=== PATIENT | female | born 1965 | race African-American/Black ===

== ENCOUNTER 2016-11-24 11:09 | Observation (INO) ==
[2016-11-24] MEDS ORDERED: METOPROLOL TARTRATE 5 MG/5 ML VIAL IV STA (11:45)
[2016-11-24] MEDS ORDERED: ASPIRIN 325 MG TABLET PO STA (11:45)
[2016-11-24] MEDS ORDERED: ENOXAPARIN 100 MG/ML SYRINGE SUBCUT STA (11:45)
[2016-11-24] MEDS ORDERED: ALUM/MAG/SIMETH/LIDO VISC 1:1 30 ML BOTTLE PO STA (11:45)
[2016-11-24] MEDS ORDERED: ONDANSETRON 4 MG/2 ML VIAL IV STA (11:45)
[2016-11-24] MEDS ORDERED: NITROGLYCERIN 2% OINT 1 INCH/GM PACK TOP STA (11:45)
--- NOTE | 2016-11-24 11:49 | EKG Report ---
Stationary ECG Study [facility] Test Date: 11/24/2016 11:26:15 AM Pat Name: SHAHZAD HIDALGO Department: Room: Gender: F [employer]: : 1965 Requested by: Brennen Ross Order Number: [id number] Reading MD: VITO KINNEY Intervals [place] Rate: 82 P: 50 NE: 190 QRS: -42 QRSD: 110 T: 45 QT: 381 QTc: 419 Interpretive Statements SINUS RHYTHM MARKED LEFT AXIS DEVIATION PATTERN CONSISTENT WITH PULMONARY DISEASE POOR R-WAVE PROGRESSION MINIMAL VOLTAGE CRITERIA FOR LVH, CONSIDER NORMAL VARIANT POOR QUALITY BASELINE Electronically Signed On 11-25-16 18:51:14 CDT by VITO KINNEY [email or web address]
--- NOTE | 2016-11-24 11:56 | Emergency Department Note ---
Crystal Salazar Gwan, am scribing for, and in the presence of, Brennen Saucedo MD 11:53 . Sheryl Salazar James D, MD, personally performed the services described in this documentation, ascribed by Juanita Rojas in my presence, and it is both accurate and complete . Arrival - Arrival Chief Complaint: Chest Pain Stated Complaint: FALL ED Nursing Triage Note: Brought in per EMS from home with c/o mid-sternal chest pain onset 2 days. +shortness of breath. +dizziness. +nausea/vomiting. + headache. +decreased appetite. Also c/o left hand pain and numbness x 2 days. Moving bilateral hands without difficulty. Mode of Arrival: Stretcher Limitations: No Limitations Source: Patient, Old Records Reviewed, RN Notes Reviewed Time Seen by Provider: 11/24/16 11:12 - History of Present Illness HPI Narrative: Pt is a 51 y/o female who presents to the ED via EMS for further evaluation of intermittent mid-sternal chest pain and SOB with an onset 2 days. Her associated sxs hve been N/V, dizziness, NAQVI and decreased appetite. She describes her pain as someone "sitting on her chest" and that her SOB worsens with deep breathe. She confirmed that she is being followed by Dr. Valdez and that she has been compliant with all prescribed medications. She denies any SHx of smoking cigarettes or any hx of blood clots. Pt has a PMHx of CHF, HTN, IDDM , NIDDM, obstructive sleep apnea, COPD and asthma. No other problems/complaints rpeorted in ED. Onset (ago): day(s) Consistency: intermittent Severity: moderate Date of Last Menstrual Period: hyst Allergies/Adverse Reactions: Allergies Allergy/AdvReac Type Severity Reaction Status Date / Time metoclopramide [From Reglan] Allergy Unknown/Unable Verified 11/24/16 11:18 to obtain butorphanol [From Stadol] AdvReac Intermediate Confusion Verified 11/24/16 11:18 ondansetron AdvReac Intermediate Confusion Verified 11/24/16 11:18 [From Zofran (as hydrochloride)] droperidol AdvReac Hallucinati Verified 11/24/16 11:18 ng morphine AdvReac Confusion Verified 11/24/16 11:18 Home Medications: Home Medications Medication Instructions Recorded Confirmed Type metFORMIN [Glucophage] 500 mg PO BID 04/16/16 11/24/16 History Carvedilol [Coreg] 25 mg PO BID tablet 04/21/16 11/24/16 Rx Buprenorphine HCl/Naloxone HCl 1 each SL BID 06/08/16 11/24/16 History [Suboxone 8 mg-2 mg Sl Film] Budesonide/Formoterol 160-4.5 2 puff INH BID 07/04/16 11/24/16 History [Symbicort 160-4.5] Sertraline [Zoloft] 100 mg PO BID 07/04/16 11/24/16 History Furosemide Tab [Lasix Tab] 80 mg PO TID #90 tablet 09/12/16 11/24/16 Rx Albuterol Inhaler [Proventil 2 puff INH Q4H PRN 11/24/16 11/24/16 History Inhaler] Lisinopril [Prinivil] 20 mg PO QPM 11/24/16 11/24/16 History Pantoprazole Tab [Protonix Tab] 40 mg PO QAM 11/24/16 11/24/16 History Theophylline ER Cap (24 Hr) 400 mg PO QAM 11/24/16 11/24/16 History [Fabiano-24] Review of System - Review of System 12 point system: reviewed and no additional remarkable complaints except as stated - Review of System Constitutional: Present: as per HPI, diaphoresis, other (dizziness). Absent: fever Respiratory: Present: as per HPI, cough Cardiovascular: Present: as per HPI, chest pain Gastrointestinal: Present: as per HPI, nausea, vomiting. Absent: abdominal pain Genitourinary female: Absent: dysuria Musculoskeletal: Absent: arm pain, back pain, leg pain, neck pain Skin: Absent: rash Medical,Surgical,& Family Hx - Medical History Cardio: History of: CHF, Hypertension No history of: [place], Pacemaker Psychological: History of: Depression Neurology: History of: Migraine Endocrine: History of: Diabetes Mellitus (IDDM), Diabetes Mellitus (NIDDM), Dyslipidemia Respiratory: History of: Asthma, COPD, Obstructive Sleep Apnea, Respiratory Problems Gastrointestinal: History of: GERD, GI Problems - Surgical History Cardiac Surgeries: Sugical HX of: Cardiac Catheterization Abdominal Surgeries: Surgical HX of: Cholecystectomy, Colonoscopy, EGD Reproductive Surgeries: Surgical HX of;: Section, Hysterectomy Orthopedic Surgeries: Surgical HX of;: Total Knee Replacement - Family History Family History: Reports;: Family Cancer, Family Diabetes, Family Hypertension, Family Stroke - Social History Smoking Status: Unknown if ever smoked Frequency of Alcohol Use: None Type of Drug Use: None Exam Physical Examination: GENERAL: This is a morbidly obese black female in no apparent distress. VITAL SIGNS: HEENT: Head is normocephalic and atraumatic. Pupils are equally round and reactive to light. Extraocular movement are intact. Oropharynx is benign with moist mucous membranes. NECK: Neck is soft and supple without tenderness. There are no masses. There is no lymphadenopathy. LUNGS: Lungs are clear to auscultation bilaterally. Chest rises symmetrically. Patient has anterior chest wall tenderness. CV: Heart is regular rate and rhythm without murmurs, rubs, or gallops. ABDOMEN: Abdomen is soft, non-tender to palpation. There are no abnormal masses palpated. There is no organomegaly. Bowel sounds are present and active. SKIN: Skin is warm and dry. No rash. EXTREMITIES: Patient has full range of motion without tenderness. There is no pedal edema. NEUROLOGIC: Awake, alert, and oriented x4. Cranial nerves II through XII are grossly intact. There are no motorsensory deficits. PSYCHIATRIC: Normal affect. Normal mood. Vital Signs: Vital Signs Temperature 96.8 F L 11/24/16 11:09 Pulse Rate 88 11/24/16 11:09 Respiratory Rate 20 11/24/16 11:09 Blood Pressure 140/102 11/24/16 11:09 O2 Sat by Pulse Oximetry 96 11/24/16 11:09 Course - Consultations Consultation #1: Discussed with hospitalist. Patient will be admitted to their service. Time: 13:24 Results - Labs CBC & BMP: 11/24/16 11:40 11/24/16 11:40 Lab Results: I have reviewed the patients labs Labs: Laboratory Tests 11/24/16 11:40 Troponin I < 0.015 Laboratory Tests 11/24/16 11/24/16 11/24/16 11:40 11:40 11:40 WBC 7.2 RBC 4.84 Hgb 9.2 L Hct 34.0 L MCV 70.2 L MCH 19 L MCHC 27.1 L RDW 19.2 H Troponin I < 0.015 B-Natriuretic Peptide 68 - EKG EKG results: interpreted by NEO - Diagnostic Findings Procedure: Chest x-ray: image reviewed by me (Cardiomegaly, no pleural effusions , no infiltrate) Disposition Clinical Impression: Chest pain, Essential hypertension, Diabetes mellitus, Morbid obesity Case discussed with: patient Disposition: Still a Patient Condition: Stable Time of Disposition: 13:24
[2016-11-24 12:01] LABS: PT Patient Result 10.2 SECS; Partial Thromboplastin Time 23.3 SECS (0-40)
[2016-11-24 12:04] LABS: Basophils % 0.3 % (0.0-0.8); Eosinophils % 0.1 % (0.00-10.9); Hemoglobin 9.2 GM/DL (12.0-16.0); Immature Granulocytes % 0.4 %; Immature Granulocytes Absolute 0.03 #; Lymphocytes # 2.3 10*3/uL (1.4-4.0); Lymphocytes % 32.5 % (21.3-54.2); Mean Corpuscular HGB Conc 27.1 GM/DL (32-36); Mean Corpuscular Hemoglobin 19 PG (27-34); Mean Corpuscular Volume 70.2 FL (87-102); Monocytes # 0.3 10*3/uL (0.11-0.8); Monocytes % 4.4 % (1.7-12.7); Neutrophils # 4.5 10*3/uL (1.4-7.4); Neutrophils % 62.3 % (38.7-73.9); Platelet Count 223 T/CUMM (130-400); Red Blood Count 4.84 MC/CUMM (3.8-5.5); Red Cell Distribution Width 19.2 % (9.3-17.3); White Blood Count 7.2 T/CUMM (4-12)
[2016-11-24] MEDS ORDERED: NITROGLYCERIN 2% OINT 1 INCH/GM PACK TOP ONE (12:06)
[2016-11-24] MEDS ORDERED: ONDANSETRON 4 MG/2 ML VIAL ONE (12:06)
[2016-11-24] MEDS ORDERED: ENOXAPARIN 100 MG/ML SYRINGE SUBCUT ONE (12:06)
[2016-11-24] MEDS ORDERED: ENOXAPARIN 40 MG/0.4 ML SYRINGE ONE (12:06)
[2016-11-24] MEDS ORDERED: METOPROLOL TARTRATE 5 MG/5 ML VIAL IV ONE (12:07)
[2016-11-24] MEDS ORDERED: ASPIRIN 325 MG TABLET ONE (12:07)
[2016-11-24] MEDS ORDERED: ALUM/MAG/SIMETH/LIDO VISC 1:1 30 ML BOTTLE PO ONE (12:07)
[2016-11-24 12:09] LABS: Alanine Aminotransferase < 9 U/L (13-56); Albumin 3.4 G/DL (3.4-5.0); Alkaline Phosphatase 104 U/L (45-117); Aspartate Amino Transferase 10 U/L (0-37); Blood Urea Nitrogen 5 MG/DL (7-18); Calcium 8.2 MG/DL (8.5-10.1); Glucose 123 MG/DL (74-106); Osmolality,Calculated 278.3 MOS/KG (273-304); Potassium 3.7 MMOL/L (3.5-5.1); Sodium 141 MMOL/L (136-145)
[2016-11-24] MEDS ORDERED: PROMETHAZINE 25 MG/1 ML VIAL ONE (12:20)
[2016-11-24 12:24] LABS: Hypochromasia 2+; Microcytosis 1+; Ovalocytes Slight; Target Cells Slight
[2016-11-24 12:25] LABS: Anisocytosis 1+; Platelet Estimate Normal; Poikilocytosis 1+; Stomatocytes Slight; Tear Drop Cells Slight
--- NOTE | 2016-11-24 12:35 | XRay Report ---
Portable chest. Indication: Chest pain. Comparison: September 12, 2016. The heart is enlarged. The pulmonary vasculature is normal. The lung avila are clear. The osseous structures are unremarkable. Impression: Stable cardiomegaly. No acute abnormality. PROCEDURE INTERPRETED AT [facility] DEPARTMENT OF RADIOLOGY Final Report Signed by: Dr. Sandra Marie
[2016-11-24] MEDS ORDERED: ZALEPLON 5 MG CAPSULE PO PRN (14:30)
[2016-11-24] MEDS ORDERED: BISACODYL 5 MG TABLET PO PRN (14:30)
[2016-11-24] MEDS ORDERED: PANTOPRAZOLE 40 MG TABLET PO SCH (14:30)
[2016-11-24] MEDS ORDERED: ALBUTEROL 2.5 MG/3 ML NEB RESP TX PRN (14:34)
[2016-11-24] MEDS ORDERED: ALUMINUM/MAGNES/SIMETH MAX STR 30 ML UDCUP PO PRN (14:36)
[2016-11-24] MEDS ORDERED: GLUCAGON 1 MG VIAL IM PRN (14:38)
[2016-11-24] MEDS ORDERED: DEXTROSE 50% 25 GM/50 ML VIAL IV PRN (14:38)
--- NOTE | 2016-11-24 14:48 | Hospitalist History & Physical ---
Assessment and Plan (1) Obesity hypoventilation syndrome Status: Chronic Assessment and plan: The patient is on active treatment for sleep apnea. Arterial blood gases confirmed CO2 retention with blood work demonstrating compensatory increase in CO2 content. Echocardiogram shows dilated right-sided structures however with measured right ventricular systolic pressure is within normal limits. Her clinical appearance however is strongly suggestive of cor pulmonale. Current Visit: No (2) Chronic pain Status: Chronic Assessment and plan: Patient is chronically maintained on opiate derivatives. Current Visit: No Qualifiers: Chronic pain type: chronic pain syndrome Qualified Code(s): G89.4 - Chronic pain syndrome (3) Abdominal pain Status: Acute Assessment and plan: Pain location is predominantly epigastric this associated with nausea vomiting dark stools. Her anemia is persistent though less severe than in August. She persists with microcytosis. Her most recent upper endoscopy demonstrated H. pylori negative gastritis esophagitis without ulceration. Current Visit: No Qualifiers: Abdominal location: epigastric Qualified Code(s): R10.13 - Epigastric pain History of Present Illness History of present illness: Ms. Addison is a 51 year old female who presents with complaints of 3 days of nausea with emesis and loose bowel movements. She has epigastric discomfort which is not relieved by emesis. Her abdominal discomfort last night lasted several hours at a time and is inhibited her from eating more than minimal amounts of food. She also describes over this interval frontal headache and incidental paresthesia in the left ulnar distribution without history of trauma. Patient presented with anemia with low MCV abdominal pain in March 2016 at that time she underwent upper endoscopy. At that time she had a dilatation of a stricture esophagitis and gastritis were identified. The available biopsy specimen showed inflammatory changes but no evidence of H. pylori. She has had a remote cholecystectomy performed. She had been readmitted here in May 2016 at which time her echocardiogram once again showed normal right ventricular systolic pressures with excellent LV systolic function right-sided structures were dilated. There is a note indicating a preliminary form for cardiac catheterization but this does not appear to have been completed. The patient tells me that she had a cardiac catheterization done on approximately a year before that which time there was no coronary disease identified. She most recently was in the hospital against August of this year she received diuresis for presumed cor pulmonale. Her hemoglobin was 7.7 at that time with a decrease in MCV. Patient does describe intermittent tarry stools and has some bright red blood per rectum with this recent diarrheal episode. She denies any transfusions. The patient has been treated for 2-3 years for obstructive sleep apnea on previous visit she has demonstrated increased CO2 content. Arterial blood gases from last year demonstrated persistent CO2 retention varying with the amount of oxygen exposure with likewise variable respiratory acidosis. She considers her respiratory status to be roughly stable subjectively. Home Medications Medication Instructions Recorded Confirmed Type metFORMIN [Glucophage] 500 mg PO BID 04/16/16 11/24/16 History Carvedilol [Coreg] 25 mg PO BID tablet 04/21/16 11/24/16 Rx Buprenorphine HCl/Naloxone HCl 1 each SL BID 06/08/16 11/24/16 History [Suboxone 8 mg-2 mg Sl Film] Budesonide/Formoterol 160-4.5 2 puff INH BID 07/04/16 11/24/16 History [Symbicort 160-4.5] Sertraline [Zoloft] 100 mg PO BID 07/04/16 11/24/16 History Furosemide Tab [Lasix Tab] 80 mg PO TID #90 tablet 09/12/16 11/24/16 Rx Albuterol Inhaler [Proventil 2 puff INH Q4H PRN 11/24/16 11/24/16 History Inhaler] Lisinopril [Prinivil] 20 mg PO QPM 11/24/16 11/24/16 History Pantoprazole Tab [Protonix Tab] 40 mg PO QAM 11/24/16 11/24/16 History Theophylline ER Cap (24 Hr) 400 mg PO QAM 11/24/16 11/24/16 History [Fabiano-24] Allergies Allergy/AdvReac Type Severity Reaction Status Date / Time metoclopramide [From Reglan] Allergy Unknown/Unable Verified 11/24/16 11:18 to obtain butorphanol [From Stadol] AdvReac Intermediate Confusion Verified 11/24/16 11:18 ondansetron AdvReac Intermediate Confusion Verified 11/24/16 11:18 [From Zofran (as hydrochloride)] droperidol AdvReac Hallucinati Verified 11/24/16 11:18 ng morphine AdvReac Confusion Verified 11/24/16 11:18 Medical,Surgical,& Family Hx - Medical History Cardio: History of: Hypertension (15 years duration) Psychological: History of: Depression Neurology: History of: Migraine Endocrine: History of: Diabetes Mellitus (NIDDM) (Medicine list includes only metformin), Dyslipidemia Respiratory: History of: COPD (Patient has never smoked and history of bronchospasm is lacking.), Obstructive Sleep Apnea (On CPAP fourth 2-3 years), Respiratory Problems (Arterial blood gases August - May 2016 showed consistent CO2 retenti) Gastrointestinal: History of: GERD (Endoscopy showing diffuse disc gastroesophagitis with esophageal stricture ) - Surgical History Cardiac Surgeries: Sugical HX of: Cardiac Catheterization (Cannot locate reports she believes this was normal approximately 1 year) Abdominal Surgeries: Surgical HX of: Cholecystectomy, EGD (Associated esophageal dilatation) Reproductive Surgeries: Surgical HX of;: Section, Hysterectomy Orthopedic Surgeries: Surgical HX of;: Total Knee Replacement (Right knee) - Family History Family History: Reports;: Family Cancer, Family Diabetes, Family Hypertension, Family Stroke - Social History Smoking Status: Never smoker Frequency of Alcohol Use: None Type of Drug Use: None - Constitutional Constitutional: Present: chills, headache(s), malaise. Absent: fever(s) - EENT Nose, mouth and throat: Present: headache(s) - Cardiovascular Cardiovascular: Present: dyspnea on exertion. Absent: chest pain at rest, chest pain with activity, orthopnea, palpitations, PND - Respiratory Respiratory: Present: dyspnea on exertion. Absent: cough, hemoptysis - Gastrointestinal Gastrointestinal: Present: abdominal pain, diarrhea, melena, nausea, vomiting. Absent: bloating, dysphagia, hematemesis, hematochezia, jaundice - Neurological Neurological: Present: other (Left hand ulnar neuropathy). Absent: convulsions , syncope - Psychiatric Psychiatric: Present: depression Exam - Constitutional General appearance: morbidly obese - Eye Eye exam: Absent: scleral icterus - Neck Neck exam: Absent: lymphadenopathy, thyromegaly - Respiratory Respiratory exam: Present: clear to auscultation bilaterally. Absent: rales, rhonchi, wheezes - Cardiovascular Cardiovascular exam: Present: regular rate and rhythm - GI/Abdominal GI/Abdominal exam: Present: normal bowel sounds. Absent: ascites, distended, organomegaly, tenderness - Extremities Exam Extremities exam: Absent: edema - Neurological Exam Neurological exam: Present: alert, oriented X3 Results - Labs CBC & BMP: 11/24/16 11:40 11/24/16 11:40 Labs: MCV 70.2 Normal pro time and PTT Calcium 8.2 (unchanged from previous) albumin 3.4 - Impressions Sinus rhythm with baseline movement artifact left axis deviation with criteria for left anterior fascicular block - Diagnostic Findings Procedure: Chest x-ray: image reviewed by me (Overpenetrated no gross abnormality present) Quality Measures - VTE Contraindication to Pharmacological VTE Prophylaxis: Active Bleeding
[2016-11-24] MEDS ORDERED: PROMETHAZINE INJ 25 MG in SODIUM CHLORIDE 0.9% 50 ML IV STA (14:54)
[2016-11-24] MEDS ORDERED: PROMETHAZINE 25 MG/1 ML VIAL IM STA (14:58)
[2016-11-24 17:14] LABS: % Iron Saturation 12.5 % (18-50)
[2016-11-24] MEDS: LISINOPRIL 20 MG TABLET PO SCH (18:31)
[2016-11-24] MEDS ORDERED: NON-FORMULARY MEDICATION (Buprenorphine Hcl/Naloxone Hcl [Suboxone 8 Mg-2 Mg Sl Film] 1 EA SL SCH (21:00)
--- NOTE | 2016-11-24 21:00 | Gastrointestinal Consult Note ---
Assessment and Plan (1) Nausea, vomiting, and diarrhea Status: Acute Assessment and plan: Patient states that she has recently been fevers along with the nausea/vomiting/ diarrhea of her current episode. She does not have a elevated white blood cell count but may be experiencing a gastroenteritis causing her current illness. Given the fact that she has esophagitis and gastritis in the past on previous upper endoscopy done in March 2016 strongly suggest use of Protonix IV twice daily until we can get her nausea under control. She is asking for additional pain medications but I do not see how slowing down her GI tract will necessarily benefit the symptoms. I will go ahead and suppress her acidity with IV Protonix which she will not be able to throw up, twice daily. Current Visit: Yes (2) History of esophageal stricture Status: Acute Assessment and plan: The patient is not having dysphagia symptoms at this time. She was previously dilated to 54 [place] by single pass Verma dilator. She is not vomiting any coffee grounds. I suspect she has some atypical chest pain for the recurrence of vomiting over the last 3 days. This should improve with acid blockade. Imagine she may be able to go home tomorrow with Protonix twice daily if she is feeling better and is able to eat. Current Visit: Yes (3) Gastritis Status: Acute Assessment and plan: This was noted to be Helicobacter pylori negative on the previous upper endoscopy done by Dr. Cristobal back in March 2016. No further treatment is needed aside from better suppression of her gastric acidity. Would suggest trying to feed the patient tomorrow if she feels up to this and then switch her over to oral pantoprazole twice a day dosing. She may need a follow-up with Dr. Cristobal in order to discuss colonoscopy. Current Visit: Yes (4) Morbid obesity Status: Chronic Assessment and plan: This patient may be a candidate for gastric sleeve in the future with Dr. Castillo. Current Visit: No History of Present Illness Chief complaint: Nausea vomiting, diarrhea, fever/chills History of present illness: Ms. Addison is a 51 year old female who is a patient of Dr. Ankush Cristobal' who was seen last in March 2016 when she had nausea vomiting and melena at that time and was found to have a distal esophagitis with esophageal stricture that required dilation to 54 [place] and some mild gastritis. She is once again presenting with nausea and vomiting for the last 3 days along with epigastric pain. She states that she vomits approximately 3 times per day and last night developed some fevers and chills along with this and over the last 2 days has developed some diarrhea that she states has been quite dark. Her white blood cell count is only 7.2 and her hematocrit and hemoglobin are 34.0% and 9.2 g/ dL. she is complaining of abdominal pain but also states that she has pain in her head. She specifically requests Phenergan and states that she is allergic to Zofran, Reglan, Compazine, Stadol, and she would like something stronger than [place] to treat her pain. She states that her reflux is slightly worse. Biopsies from the patient's stomach did not show any Helicobacter pylori. Patient is already had her gallbladder removed some 17 years ago at an outside facility. She is morbidly obese and has obesity hypoventilation syndrome. She is concerned of her atypical chest pain and decreased appetite as well as mild shortness of breath. She is currently being ruled out. The patient has a history of chronic pain and follows with Dr. Valdez. Home Medications Medication Instructions Recorded Confirmed Type metFORMIN [Glucophage] 500 mg PO BID 04/16/16 11/24/16 History Carvedilol [Coreg] 25 mg PO BID tablet 04/21/16 11/24/16 Rx Buprenorphine HCl/Naloxone HCl 1 each SL BID 06/08/16 11/24/16 History [Suboxone 8 mg-2 mg Sl Film] Budesonide/Formoterol 160-4.5 2 puff INH BID 07/04/16 11/24/16 History [Symbicort 160-4.5] Sertraline [Zoloft] 100 mg PO BID 07/04/16 11/24/16 History Furosemide Tab [Lasix Tab] 80 mg PO TID #90 tablet 09/12/16 11/24/16 Rx Albuterol Inhaler [Proventil 2 puff INH Q4H PRN 11/24/16 11/24/16 History Inhaler] Lisinopril [Prinivil] 20 mg PO QPM 11/24/16 11/24/16 History Pantoprazole Tab [Protonix Tab] 40 mg PO QAM 11/24/16 11/24/16 History Theophylline ER Cap (24 Hr) 400 mg PO QAM 11/24/16 11/24/16 History [Fabiano-24] Allergies Allergy/AdvReac Type Severity Reaction Status Date / Time metoclopramide [From Reglan] Allergy Unknown/Unable Verified 11/24/16 11:18 to obtain butorphanol [From Stadol] AdvReac Intermediate Confusion Verified 11/24/16 11:18 ondansetron AdvReac Intermediate Confusion Verified 11/24/16 11:18 [From Zofran (as hydrochloride)] droperidol AdvReac Hallucinati Verified 11/24/16 11:18 ng morphine AdvReac Confusion Verified 11/24/16 11:18 Medical,Surgical,& Family Hx - Medical History Cardio: History of: CHF, Hypertension (15 years duration) No history of: [place], Pacemaker Psychological: History of: Depression Neurology: History of: Migraine Endocrine: History of: Diabetes Mellitus (IDDM), Diabetes Mellitus (NIDDM) ( Medicine list includes only metformin), Dyslipidemia Respiratory: History of: Asthma, COPD (Patient has never smoked and history of bronchospasm is lacking.), Obstructive Sleep Apnea (On CPAP fourth 2-3 years), Respiratory Problems (Arterial blood gases August - May 2016 showed consistent CO2 retenti) Gastrointestinal: History of: GERD (Endoscopy showing diffuse disc gastroesophagitis with esophageal stricture ), GI Problems - Surgical History Cardiac Surgeries: Sugical HX of: Cardiac Catheterization (Cannot locate reports she believes this was normal approximately 1 year) Abdominal Surgeries: Surgical HX of: Cholecystectomy, Colonoscopy, EGD ( Associated esophageal dilatation) Reproductive Surgeries: Surgical HX of;: Section, Hysterectomy Orthopedic Surgeries: Surgical HX of;: Total Knee Replacement (Right knee) - Family History Family History: Reports;: Family Cancer, Family Diabetes, Family Hypertension, Family Stroke - Social History Smoking Status: Never smoker Frequency of Alcohol Use: None Type of Drug Use: None Review of systems: Constitutional: Admits to fever, chills, nausea, and vomiting Eyes: Denies dry eyes, and scleral icterus HENT: The patient does have headaches Cardiovascular: She admits to acute chest pain as well as claudication Respiratory: She does have some shortness of breath, wheezing, and difficulty breathing, denies cough Gastrointestinal: As noted in the HPI Genitourinary: Denies dysuria and hematuria Neurologic: Denies vision loss, and loss of sensation Musculoskeletal: Patient does complain of joint swelling, joint stiffness, and muscular weakness Psychiatric: She has had depression but no christie symptoms Heme-Lymph: Denies easy bruising, lymph node enlargement or tenderness, night sweats, excessive bleeding Allergies-immunologic: Denies pruritus and rhinorrhea Exam - Constitutional Vitals: Period Temp Pulse Resp BP Sys/Rodrigez Pulse Ox Last 24 Hr 96.7 F-97.9 F 80-97 18-20 145-156/81-86 90-98 Exam: Constitutional: Well-developed, well-nourished, morbidly obese black female who is alert, and in minimal distress Head and face: Head: Normocephalic atraumatic Eyes: Conjunctiva without injection, no gross scleral icterus, pupils equal and round bilaterally Ears: Intact to conversation in both ears Nose: External appearance is normal, nares patent Mouth: Oral mucous membranes moist without erythema dentition noted to be without erosion Neck: Normal appearance, no masses or tenderness, trachea midline Thyroid: Gland midline and appropriate size for age Respiratory: Somewhat labored respiratory effort, few wheezes noted throughout the mid lung avila without clear rhonchi or rales Cardiovascular: Regular rate and rhythm, normal S1, but prominent S2, the exam is without rubs, or gallops. Right-sided inspiratory murmur Gastrointestinal: Tenderness to deep palpation in the epigastric region. normal active bowel sounds, tone normal without rigidity or guarding, no masses present, no hepatomegaly, no spleen tip felt. No rectal exam obtained. Lymphatic: Neck without adenopathy, axilla without lymphadenopathy present Musculoskeletal: Right and left lower extremities with trace evidence of edema, well-healed right knee scar consistent with knee replacement Skin and subcutaneous tissue: No rashes or ulcerations noted, normal skin turgor, digits and nails without clubbing/cyanosis/deformities. Neurologic: The patient is grossly oriented to person place and time, cranial nerves show tongue movements are normal with normal tongue extrusion midline, light touch sensation is intact. Psychiatric: No hallucinations or delusions are present, does not appear depressed Results - Labs CBC & BMP: 11/24/16 19:54 11/24/16 11:40 Quality Measures - VTE Contraindication to Pharmacological VTE Prophylaxis: Active Bleeding
[2016-11-24] MEDS: SERTRALINE 100 MG TABLET PO SCH (21:22)
[2016-11-24] MEDS: BUDESONIDE/FORMOTEROL 160-4.5 INHALER 6 GM INH SCH (21:22)
[2016-11-24] MEDS: CARVEDILOL 25 MG TABLET PO SCH (21:22)
[2016-11-24] MEDS: PANTOPRAZOLE 40 MG VIAL IV SCH (21:22)
[2016-11-25 05:15] LABS: Calcium 8.6 MG/DL (8.5-10.1); Osmolality,Calculated 279.3 MOS/KG (273-304); Potassium 3.1 MMOL/L (3.5-5.1)
[2016-11-25 05:41] LABS: Basophils % 0.4 % (0.0-0.8); Hematocrit 32.7 VOL% (35.7-47.0); Hemoglobin 8.9 GM/DL (12.0-16.0); Immature Granulocytes % 0.3 %; Immature Granulocytes Absolute 0.02 #; Lymphocytes # 2.6 10*3/uL (1.4-4.0); Lymphocytes % 37.3 % (21.3-54.2); Mean Corpuscular HGB Conc 27.2 GM/DL (32-36); Mean Corpuscular Hemoglobin 19 PG (27-34); Mean Corpuscular Volume 70.5 FL (87-102); Monocytes # 0.4 10*3/uL (0.11-0.8); Monocytes % 5.8 % (1.7-12.7); Neutrophils # 3.8 10*3/uL (1.4-7.4); Neutrophils % 56.2 % (38.7-73.9); Platelet Count 205 T/CUMM (130-400); Red Blood Count 4.64 MC/CUMM (3.8-5.5); Red Cell Distribution Width 19.1 % (9.3-17.3); White Blood Count 6.8 T/CUMM (4-12)
[2016-11-25 06:07] LABS: Hypochromasia 2+
[2016-11-25 06:08] LABS: Microcytosis 1+; Platelet Estimate Adequate
--- NOTE | 2016-11-25 09:14 | Hospitalist Progress Note ---
Assessment and Plan (1) YARELIS (obstructive sleep apnea) Status: Chronic Current Visit: No (2) Morbid obesity Status: Acute Assessment and plan: I have instructed the patient in the clearance to him that he should have a CPAP machine in the hospital when she is acutely ill. She states that family will bring in the machine today. Patient does not have acute coronary syndrome she will be transferred to 3 E. or 4 E. I will put in the transfer order Current Visit: Yes (3) Nausea, vomiting, and diarrhea Status: Acute Assessment and plan: Since been put on proton pump inhibitor I do not see that him to be much of a problem. Gastroenterology plans of possibly doing an EGD once the nausea vomiting subsides. There is evaluation from GI is pending. And patient will be transferred to general medical floor 4 East to 3 E. Current Visit: Yes (4) History of esophageal stricture Status: Acute Assessment and plan: Gastroenterology is on the case. Current Visit: Yes (5) Gastritis Status: Acute Assessment and plan: Continue PPIs. Serologies on the case. Avoid opioid derivatives as the patient is demanding Current Visit: Yes Hospitalist: Subjective Interval history: Patient has been assigned to me for the first time today. Ms. Bales has been seen interviewed chart has been reviewed and patient has been examined. Admitted to the hospital yesterday with intractable epigastric pain reported with nausea vomiting and dark stools at home. This 51-year-old lady has had history of upper endoscopy in 2016 with the discovery of esophageal stricture and some gastritis. Reportedly a H. pylori evaluation at that time was negative. In review of the clinical panel and see much of profuse diarrhea. Vomiting is also not reported as much. She has had 2 stooling reported since admission. Vital signs been no fever is 2 hypertension last blood pressure of 154/100 and heart rate of 118 input output 350 mL in 350 out. Hematocrit has been stable at around 33% she has hypokalemia of 3.1 magnesium is yet to be checked. Cardiac markers are flat. Patient is asking for more stronger IV medication. In review of the preceding notes this is been the opinion of the preceding evaluated as too. Exam - Constitutional Vitals: Period Temp Pulse Resp BP Sys/Rodrigez Pulse Ox Last 24 Hr 96.2 F-97.9 F 74-97 16-20 139-166/77-100 90-98 General appearance: no acute distress, morbidly obese - Head Head exam: Present: normocephalic, atraumatic - Eye Eye exam: Present: EOMI Pupils: Present: GEE - ENT ENT exam: Present: normal oropharynx - Neck Neck exam: Present: other (Short supple neck no JVD no bruits.) - Respiratory Respiratory exam: Present: clear to auscultation bilaterally - Cardiovascular Cardiovascular exam: Present: tachycardia, other (Regular rhythm) - GI/Abdominal GI/Abdominal exam: Present: normal bowel sounds, soft, other (Epigastric discomfort to palpation) - Extremities Exam Extremities exam: Present: full ROM - Back Exam Back exam: Present: normal inspection - Neurological Exam Neurological exam: Present: alert, oriented X3, CN II-XII intact - Psychiatric Psychiatric exam: Present: other (Subdued appropriate responses) Results - Labs CBC & BMP: 11/25/16 04:03 11/25/16 04:02 Lab Results: I have reviewed the past 24 hour labs (Supplement potassium by potassium protocol. Check magnesium today. Repeat BMP with magnesium in the morning.) Quality Measures - VTE Contraindication to Pharmacological VTE Prophylaxis: Active Bleeding
[2016-11-25] MEDS: THEOPHYLLINE ER (24 HR) 400 MG CAPSULE PO SCH (09:45)
[2016-11-25] MEDS: BUDESONIDE/FORMOTEROL 160-4.5 INHALER 6 GM INH SCH ×2 (09:45→20:43)
[2016-11-25] MEDS: SERTRALINE 100 MG TABLET PO SCH ×2 (09:45→20:35)
[2016-11-25] MEDS: CARVEDILOL 25 MG TABLET PO SCH ×2 (09:45→20:35)
[2016-11-25] MEDS: PANTOPRAZOLE 40 MG VIAL IV SCH (10:34)
[2016-11-25] MEDS ORDERED: POTASSIUM CHLORIDE 20 MEQ TABLET PO PRN (15:52)
[2016-11-25] MEDS: LISINOPRIL 20 MG TABLET PO SCH (18:35)
--- NOTE | 2016-11-25 18:51 | Gastrointestinal Progress Note ---
Assessment and Plan (1) Nausea, vomiting, and diarrhea Status: Acute Assessment and plan: Please note this patient is a patient of Dr. Cristobal' from March 2016. Patient states that she has recently been fevers along with the nausea/vomiting/ diarrhea of her current episode. She does not have a elevated white blood cell count but may be experiencing a gastroenteritis causing her current illness. Given the fact that she has esophagitis and gastritis in the past on previous upper endoscopy done in March 2016 strongly suggest use of Protonix IV twice daily until we can get her nausea under control. She is asking for additional pain medications but I do not see how slowing down her GI tract will necessarily benefit the symptoms. I will go ahead and suppress her acidity with IV Protonix which she will not be able to throw up, twice daily. 11/25/16--the patient appears to be doing well on the IV Protonix suppressing her acidity. She has not had any further nausea or vomiting. She feels like she is ready to "go home", it appears that her gastroenteritis is improving. We will try to advance her diet next, while switching her over to p.o. medications. Current Visit: Yes (2) History of esophageal stricture Status: Acute Assessment and plan: The patient is not having dysphagia symptoms at this time. She was previously dilated to 54 [place]ic by single pass Verma dilator. She is not vomiting any coffee grounds. I suspect she has some atypical chest pain for the recurrence of vomiting over the last 3 days. This should improve with acid blockade. Imagine she may be able to go home tomorrow with Protonix twice daily if she is feeling better and is able to eat. 11/25/16--Patient is not having any strictured sensation of her esophagus. No dysphagia whatsoever. She wishes to advance her diet at this time. Current Visit: Yes (3) Gastritis Status: Acute Assessment and plan: This was noted to be Helicobacter pylori negative on the previous upper endoscopy done by Dr. Cristobal back in March 2016. No further treatment is needed aside from better suppression of her gastric acidity. Would suggest trying to feed the patient tomorrow if she feels up to this and then switch her over to oral pantoprazole twice a day dosing. She may need a follow-up with Dr. Cristobal in order to discuss colonoscopy. 11/25/16--The patient will be following up with Dr. Cristobal as an outpatient. Current Visit: Yes (4) Morbid obesity Status: Chronic Assessment and plan: This patient may be a candidate for gastric sleeve in the future with Dr. Castillo. Current Visit: No Gastroenterology - PN: Subj Interval history: Patient is again asking for more opioids to help out with her chronic pain. She states that she is eating adequately although was written to get a clear liquid diet--- I suspect that she is getting food in from the outside. I will advance her diet from this clear liquid to a solid ADA 1800-calorie diet which is low lactose. If she can tolerate this she could certainly be discharged. I am also switching her Protonix over to p.o. to see if she tolerates this as well. My personal feeling is that she likely does not need a upper endoscopy. Exam (Progress Note) - Constitutional Vitals: Period Temp Pulse Resp BP Sys/Rodrigez Pulse Ox Last 24 Hr 96.2 F-98.2 F 74-97 16-20 139-181/77-101 90-95 - Head Head exam: Present: normocephalic, atraumatic - Eye Eye exam: Present: EOMI - Respiratory Respiratory exam: Present: clear to auscultation bilaterally. Absent: rhonchi, stridor, wheezes - Cardiovascular Cardiovascular exam: Present: regular rate and rhythm - GI/Abdominal GI/Abdominal exam: Present: normal bowel sounds, soft. Absent: distended, guarding, tenderness, rebound - Extremities Exam Extremities exam: Present: normal inspection - Neurological Exam Neurological exam: Present: alert, oriented X3 - Psychiatric Psychiatric exam: Present: normal affect, normal mood - Skin Skin exam: Present: warm Results - Labs CBC & BMP: 11/25/16 04:03 11/25/16 04:02
[2016-11-25] MEDS: POTASSIUM CHLORIDE 20 MEQ TABLET PO SCH (20:36)
[2016-11-25] MEDS: PANTOPRAZOLE 40 MG TABLET PO SCH (20:36)
[2016-11-26] MEDS: PANTOPRAZOLE 40 MG TABLET PO SCH (06:12)
[2016-11-26] MEDS: CARVEDILOL 25 MG TABLET PO SCH (08:48)
[2016-11-26] MEDS: POTASSIUM CHLORIDE 20 MEQ TABLET PO SCH (08:48)
[2016-11-26] MEDS: SERTRALINE 100 MG TABLET PO SCH (08:48)
[2016-11-26] MEDS: BUDESONIDE/FORMOTEROL 160-4.5 INHALER 6 GM INH SCH (08:49)
[2016-11-26] MEDS: THEOPHYLLINE ER (24 HR) 400 MG CAPSULE PO SCH (08:49)
--- NOTE | 2016-11-26 11:27 | Discharge Summary ---
<Joaquin Shannon - Last Filed: 11/26/16 11:17> Diagnosis - Discharge Diagnosis (1) YARELIS (obstructive sleep apnea) Status: Chronic (2) Morbid obesity Status: Acute (3) Nausea, vomiting, and diarrhea Status: Acute (4) History of esophageal stricture Status: Acute (5) Gastritis Status: Acute Discharge Plan - Discharge Data Disposition: Disch To Home/Self Care Condition at Discharge: Stable Discharge Diet: diabetic diet, heart healthy Activity: resume usual activities as tolerated Hygiene: no restrictions Weight Bearing at Discharge: full weight bearing Driving: not until seen by doctor Contact your physician if you experience:: fever over 101, Shortness of breath - Discharge Medications New Alum/Mag/Simeth Max Str Liquid [Mylanta Max Strength Liquid] 30 ml PO Q4H PRN #300 ml PRN Reason: Dyspepsia Pantoprazole Tab [Protonix Tab] 40 mg PO BID@0700,1900 #60 tablet Potassium Chloride 20 meq PO DAILY #30 tablet.er Continue metFORMIN [Glucophage] 500 mg PO BID Carvedilol [Coreg] 25 mg PO BID tablet Buprenorphine HCl/Naloxone HCl [Suboxone 8 mg-2 mg Sl Film] 1 each SL BID Furosemide Tab [Lasix Tab] 80 mg PO TID #90 tablet Lisinopril [Prinivil] 20 mg PO QPM Theophylline ER Cap (24 Hr) [Fabiano-24] 400 mg PO QAM Sertraline [Zoloft] 100 mg PO BID Budesonide/Formoterol 160-4.5 [Symbicort 160-4.5] 2 puff INH BID Albuterol Inhaler [Proventil Inhaler] 2 puff INH Q4H PRN PRN Reason: Shortness Of Breath/Wheezing Discontinued Pantoprazole Tab [Protonix Tab] 40 mg PO QAM - Follow Up or Referral Follow Up: Ankush Cristobal MD [Physician] - 1 Month - Forms/Instructions Exam - Constitutional Vitals: Period Temp Pulse Resp BP Sys/Rodrigez Pulse Ox Last 24 Hr 97.1 F-98.2 F 67-81 16-20 107-192/60-112 92-96 General appearance: over weight - Head Head exam: Present: normocephalic, atraumatic - Eye Eye exam: Present: EOMI Pupils: Present: GEE - ENT ENT exam: Present: normal exam - Neck Neck exam: Present: normal inspection - Respiratory Respiratory exam: Present: clear to auscultation bilaterally - Cardiovascular Cardiovascular exam: Present: regular rate and rhythm - GI/Abdominal GI/Abdominal exam: Present: normal bowel sounds, soft - Extremities Exam Extremities exam: Present: full ROM - Back Exam Back exam: Present: normal inspection - Neurological Exam Neurological exam: Present: alert, oriented X3, CN II-XII intact - Psychiatric Psychiatric exam: Present: normal affect, normal mood - Skin Skin exam: Present: normal color, warm, dry Discharge Results Procedures and tests throughout hospitalization: Pending Orders 11/24/16 14:25 Stool Culture Routine Labs on day of discharge: Labs from last 24 hours 11/26/16 11/25/16 11/25/16 07:36 20:20 16:57 POC Glucose 125 H 115 H 152 H 11/25/16 11:58 POC Glucose 139 H Preliminary micro results at discharge 11/24/16 14:25 Stool Culture - Preliminary Stool No enteric pathogens at 24 hrs DS: Provider Date of admission: 11/24/16 13:43 Primary care physician: . No PCP Attending physician on admission: Vijay De La Rosa MD Consults: 11/24/16 14:30 Consult to Physician [CONS] Routine Comment: Dr Cristobal is out of town Consulting Provider: Levar James When should Consulting Provider be notified: Now Consult to Specialist Group: Gastroenterology Person Notified: CALVIN Date Notified: 11/24/16 Time Notified: 15:20 11/24/16 15:52 Consult to Dietitian [CONS] Routine Reason for Dietitian: Other Discharging clinician: Joaquin Shannon MD <Sandra Allan - Last Filed: 11/26/16 11:42> Hospital Course - Hospital Course Hospital Course: Ms. Bales is a 51-year-old female with history of chronic pain syndrome, obesity hypoventilation syndrome admitted by the hospitalist service with 3 day history of abdominal pain with nausea, vomiting, and dark loose stools. Dr. James from GI was consulted and he recommended Protonix twice daily IV to decrease her acidity and help with her nausea. Narcotics were not recommended due to slowing down of her GI tract and would not benefit her symptoms. Over period of 24 hours her symptoms did subside. This was felt to be a gastroenteritis. She became hungry and tolerated a diet without any difficulty. She had no signs of esophageal stricture and no dysphagia. She did have a scope by Dr. Cristobal approximately a year ago where she was H. pylori negative and gastritis was found. She will need to follow-up with Dr. Cristobal as an outpatient. Care was coordinated with Dr. Shannon the hospitalist, Dr. James from GI, nursing and the patient. Discharge paperwork along with chart review and care coordination took approximately 33 minutes. - Time spent with patient Time with patient DS: Greater than 30 minutes Diagnosis - Discharge Diagnosis (1) Morbid obesity Status: Chronic (2) Obesity hypoventilation syndrome Status: Chronic (3) Chronic pain Status: Chronic (4) Abdominal pain Status: Resolved (5) Nausea, vomiting, and diarrhea Status: Resolved DS: Provider Expected date of discharge: 11/26/16
[2016-11-26 11:35] VITALS: BP 167/112
== END 2016-11-26 14:50 | disposition home or self-care (01) ==
LOC: EDBD → EDUNIT# → N.EDINP 11:09 → N.ED 11:09 → SUATTDRO 13:43 → N.TELEN 15:14 → N.3E 11-25 15:05
PROVIDERS: ADMIT Internal Medicine Cardiovascular Disease; ATTEND Internal Medicine Infectious Disease

== ENCOUNTER 2017-10-08 19:09 | Inpatient (IN) ==
[2017-10-08] MEDS ORDERED: fentaNYL 100 MCG/2 ML VIAL IV STA (20:58)
[2017-10-08] MEDS ORDERED: MAGNESIUM HYDROXIDE SUSP 30 ML UDCUP PO PRN (21:00)
[2017-10-08] MEDS ORDERED: fentaNYL 100 MCG/2 ML VIAL IV PRN (21:11)
[2017-10-08] MEDS ORDERED: fentaNYL 100 MCG/2 ML VIAL ONE (21:20)
[2017-10-08 22:04] LABS: INR 0.9
[2017-10-08 22:08] LABS: Alanine Aminotransferase < 6 U/L (13-56); Albumin 3.4 G/DL (3.4-5.0); Alkaline Phosphatase 99 U/L (45-117); Aspartate Amino Transferase 14 U/L (0-37); Blood Urea Nitrogen 8 MG/DL (7-18); Calcium 8.8 MG/DL (8.5-10.1); Glucose 97 MG/DL (74-106); Osmolality,Calculated 274.5 MOS/KG (273-304); Potassium 3.2 MMOL/L (3.5-5.1); Sodium 139 MMOL/L (136-145); Total Protein 7.7 G/DL (6.4-8.3)
[2017-10-08 22:09] LABS: Basophils % 0.3 % (0.0-0.8); Eosinophils % 0.1 % (0.00-10.9); Hematocrit 30.3 VOL% (35.7-47.0); Immature Granulocytes % 0.6 %; Immature Granulocytes Absolute 0.06 #; Lymphocytes # 2.3 10*3/uL (1.4-4.0); Lymphocytes % 21.3 % (21.3-54.2); Mean Corpuscular HGB Conc 28.1 GM/DL (32-36); Mean Corpuscular Hemoglobin 20 PG (27-34); Mean Corpuscular Volume 70.5 FL (87-102); Monocytes # 0.5 10*3/uL (0.11-0.8); Monocytes % 4.5 % (1.7-12.7); Neutrophils # 7.9 10*3/uL (1.4-7.4); Neutrophils % 73.2 % (38.7-73.9); Platelet Count 240 T/CUMM (130-400); Red Cell Distribution Width 18.9 % (9.3-17.3); White Blood Count 10.8 T/CUMM (4-12)
[2017-10-08 22:13] LABS: Hemoglobin 8.5 GM/DL (12.0-16.0)
[2017-10-08 22:49] LABS: Apearance,Urine CLEAR (Clear); Blood, Urine Negative (Negative); Glucose,Urine (UA) Negative (Negative); Hyaline Casts,Urine 3 /LPF (0-3); Ketones,Urine 5 mg/dL (Negative); Mucus,Urine Few /LPF (Occasional); Nitrite,Urine Negative (Negative); Protein,Urine >=500 MG/DL; RBC,Urine 4 /HPF (0-4); Squamous Epithelial Cell,Urine Occasional /HPF (0-10); Urine Color Amber (Yellow); Urine Specific Gravity 1.027 (1.001-1.035); WBC,Urine 2 /HPF (0-6)
[2017-10-08 22:51] LABS: Bilirubin,Urine Small mg/dL (Negative)
[2017-10-09] MEDS ORDERED: HYDROmorphone 2 MG/1 ML VIAL ONE ×3 (00:04→16:54)
[2017-10-09] MEDS: HYDROmorphone 2 MG/1 ML VIAL IV PRN ×6 (00:15→17:00)
[2017-10-09] MEDS: DEXTROSE 5% NACL 0.45% 1,000 ML IV SCH ×3 (00:16→09:38)
[2017-10-09 08:45] LABS: Calcium 8.2 MG/DL (8.5-10.1); Osmolality,Calculated 276.5 MOS/KG (273-304); Potassium 3.2 MMOL/L (3.5-5.1)
[2017-10-09] MEDS: POTASSIUM CHLORIDE RIDER 10 MEQ in PREMIX 1 EACH IV SCH ×2 (10:20→11:22)
[2017-10-09] MEDS ORDERED: ALBUTEROL 2.5 MG/3 ML NEB RESP TX PRN (12:18)
[2017-10-09] MEDS ORDERED: POTASSIUM CHLORIDE RIDER 10 MEQ in PREMIX 1 EACH IV PRN (12:26)
[2017-10-09 13:40] LABS: Risk Ratio 5.29; VLDL CHOLESTEROL 36.2 MG/DL
[2017-10-09] MEDS: FUROSEMIDE 40 MG/4 ML VIAL IV SCH (15:28)
[2017-10-09] MEDS ORDERED: GLUCAGON 1 MG VIAL IM PRN (15:35)
[2017-10-09] MEDS ORDERED: DEXTROSE 50% 25 GM/50 ML VIAL IV PRN (15:35)
[2017-10-09 16:13] LABS: Troponin I Only < 0.015 NG/ML (0.00-0.045)
[2017-10-09] MEDS: LISINOPRIL 20 MG TABLET PO SCH (19:15)
[2017-10-09] MEDS: PANTOPRAZOLE 40 MG TABLET PO SCH (19:15)
[2017-10-09] MEDS: INSULIN REGULAR 100 UNIT/ML SUBCUT SCH ×2 (19:40→21:13)
[2017-10-09] MEDS: ATORVASTATIN 40 MG TABLET PO SCH (21:13)
[2017-10-09] MEDS: CARVEDILOL 25 MG TABLET PO SCH (21:13)
[2017-10-09] MEDS: SERTRALINE 100 MG TABLET PO SCH (21:13)
[2017-10-09] MEDS: BUDESONIDE/FORMOTEROL 160-4.5 INHALER 6 GM INH SCH ×2 (21:14→21:20)
[2017-10-09] MEDS: fentaNYL 100 MCG/2 ML VIAL IV PRN (22:41)
[2017-10-10] MEDS: fentaNYL 100 MCG/2 ML VIAL IV PRN ×2 (05:30→21:55)
[2017-10-10] MEDS: PANTOPRAZOLE 40 MG TABLET PO SCH ×2 (06:32→20:03)
[2017-10-10 07:15] LABS: Basophils % 0.3 % (0.0-0.8); Eosinophils # 0.1 10*3/uL (0.0-0.87); Eosinophils % 0.7 % (0.00-10.9); Hematocrit 29.6 VOL% (35.7-47.0); Immature Granulocytes % 0.6 %; Immature Granulocytes Absolute 0.06 #; Lymphocytes # 2.1 10*3/uL (1.4-4.0); Lymphocytes % 21.1 % (21.3-54.2); Mean Corpuscular HGB Conc 26.7 GM/DL (32-36); Mean Corpuscular Hemoglobin 20 PG (27-34); Mean Corpuscular Volume 73.1 FL (87-102); Monocytes # 0.6 10*3/uL (0.11-0.8); Monocytes % 5.7 % (1.7-12.7); Neutrophils % 71.6 % (38.7-73.9); Platelet Count 225 T/CUMM (130-400); Red Blood Count 4.05 MC/CUMM (3.8-5.5); Red Cell Distribution Width 19.5 % (9.3-17.3); White Blood Count 9.8 T/CUMM (4-12)
[2017-10-10 07:16] LABS: Hemoglobin 7.9 GM/DL (12.0-16.0)
[2017-10-10 07:19] LABS: Elliptocytes Few; Giant Platelets Few; Hypochromasia 1+
[2017-10-10 07:20] LABS: Microcytosis Slight; Platelet Estimate Adequate
[2017-10-10 07:25] LABS: Calcium 7.9 MG/DL (8.5-10.1); Osmolality,Calculated 277.5 MOS/KG (273-304); Potassium 3.5 MMOL/L (3.5-5.1)
[2017-10-10 07:28] LABS: Alanine Aminotransferase < 6 U/L (13-56); Albumin 3.2 G/DL (3.4-5.0); Alkaline Phosphatase 105 U/L (45-117); Aspartate Amino Transferase 12 U/L (0-37); Blood Urea Nitrogen 13 MG/DL (7-18); Calcium 8.1 MG/DL (8.5-10.1); Glucose 118 MG/DL (74-106); Osmolality,Calculated 277.5 MOS/KG (273-304); Potassium 3.5 MMOL/L (3.5-5.1); Sodium 139 MMOL/L (136-145); Total Protein 7.5 G/DL (6.4-8.3)
[2017-10-10] MEDS: INSULIN REGULAR 100 UNIT/ML SUBCUT SCH ×4 (08:40→20:15)
[2017-10-10] MEDS: POTASSIUM CHLORIDE 20 MEQ TABLET PO SCH (08:41)
[2017-10-10] MEDS: BUDESONIDE/FORMOTEROL 160-4.5 INHALER 6 GM INH SCH ×2 (08:41→20:07)
[2017-10-10] MEDS: predniSONE 20 MG TABLET PO SCH (08:41)
[2017-10-10] MEDS: SERTRALINE 100 MG TABLET PO SCH ×2 (08:41→20:03)
[2017-10-10] MEDS: THEOPHYLLINE ER (24 HR) 400 MG CAPSULE PO SCH (08:41)
[2017-10-10] MEDS: CARVEDILOL 25 MG TABLET PO SCH ×2 (09:28→20:03)
[2017-10-10] MEDS: FUROSEMIDE 40 MG/4 ML VIAL IV SCH (09:29)
[2017-10-10] MEDS ORDERED: HYDROmorphone 2 MG TABLET PO PRN (13:01)
[2017-10-10] MEDS ORDERED: KETOROLAC 10 MG TABLET PO PRN (13:04)
[2017-10-10] MEDS ORDERED: CYCLOBENZAPRINE 10 MG TABLET PO PRN (13:04)
[2017-10-10] MEDS: HYDROmorphone 2 MG TABLET PO SCH ×2 (13:49→20:03)
[2017-10-10] MEDS ORDERED: ceFAZolin 1,000 MG VIAL ONE (15:23)
[2017-10-10] MEDS ORDERED: PROPOFOL 1,000 MG/100 ML BOTTLE IV ONE (16:57)
[2017-10-10] MEDS ORDERED: ALBUTEROL/IPRATROPIUM 3 ML NEB RESP TX ONE ×2 (17:00→17:02)
[2017-10-10] MEDS: PROPOFOL 1,000 MG/100 ML BOTTLE IV SCH ×2 (17:05→20:20)
[2017-10-10] MEDS ORDERED: SEVOFLURANE 1 UNIT/15 MINUTE INH ONE (17:06)
[2017-10-10] MEDS ORDERED: GLYCOPYRROLATE 0.4 MG/2 ML VIAL ONE (17:06)
[2017-10-10] MEDS ORDERED: ePHEDrine 50 MG/ML AMP ONE (17:06)
[2017-10-10] MEDS ORDERED: PROPOFOL 200 MG/20 ML VIAL IV ONE (17:06)
[2017-10-10] MEDS ORDERED: NEOSTIGMINE 10 MG/10 ML VIAL ONE (17:06)
[2017-10-10] MEDS ORDERED: ROCURONIUM 100 MG/10 ML VIAL IV ONE (17:07)
[2017-10-10] MEDS ORDERED: PHENYLEPHRINE 1 MG/10 ML SYRINGE IV ONE (17:07)
[2017-10-10] MEDS ORDERED: MIDAZOLAM 2 MG/2 ML VIAL ONE (17:13)
[2017-10-10] MEDS ORDERED: fentaNYL 100 MCG/2 ML VIAL IV ONE (17:48)
[2017-10-10] MEDS ORDERED: fentaNYL 100 MCG/2 ML VIAL ONE (17:49)
[2017-10-10] MEDS: LISINOPRIL 20 MG TABLET PO SCH (20:02)
[2017-10-10] MEDS: ATORVASTATIN 40 MG TABLET PO SCH (20:03)
[2017-10-10 20:10] LABS: ABG Base Excess 7.7 MMOL/L (-2.5-2.5); ABG HCO3 31.4 MMOL/L (20-26); ABG Oxygen Saturation 96.1 % (95-100); ABG PCO2 66.9 MM HG (35-48); ABG PH 7.329 (7.35-7.45); ABG TCO2 33.2 MMOL/L (23-27); Allen Test Positive; Pt O2 Delivery Device Ventilator
[2017-10-11 01:26] LABS: Apearance,Urine CLEAR (Clear); Bilirubin,Urine Negative (Negative); Blood, Urine Negative (Negative); Glucose,Urine (UA) Negative (Negative); Hyaline Casts,Urine 8 /LPF (0-3); Ketones,Urine Negative (Negative); Mucus,Urine Occasional /LPF (Occasional); Nitrite,Urine Negative (Negative); Protein,Urine Negative; Squamous Epithelial Cell,Urine Occasional /HPF (0-10); Urine Color Yellow (Yellow); Urine Specific Gravity 1.015 (1.001-1.035); Urine Urobilinogen < 2.0 EU/DL (0.2-1.0); WBC,Urine 2 /HPF (0-6)
[2017-10-11] MEDS: fentaNYL 100 MCG/2 ML VIAL IV PRN ×10 (02:05→17:46)
[2017-10-11 02:57] LABS: ABG Base Excess 6.8 MMOL/L (-2.5-2.5); ABG HCO3 30.6 MMOL/L (20-26); ABG Oxygen Saturation 95.6 % (95-100); ABG PCO2 61.9 MM HG (35-48); ABG PH 7.346 (7.35-7.45); ABG PO2 81.6 MM HG (80-95); ABG TCO2 31.8 MMOL/L (23-27); Allen Test Positive
[2017-10-11] MEDS ORDERED: PROMETHAZINE INJ 25 MG in SODIUM CHLORIDE 0.9% 50 ML IV ONE (05:04)
[2017-10-11] MEDS: HYDROmorphone 2 MG TABLET PO PRN ×2 (05:15→20:03)
[2017-10-11 05:37] LABS: Alanine Aminotransferase < 6 U/L (13-56); Albumin 3.1 G/DL (3.4-5.0); Alkaline Phosphatase 106 U/L (45-117); Aspartate Amino Transferase 11 U/L (0-37); Blood Urea Nitrogen 14 MG/DL (7-18); Calcium 7.8 MG/DL (8.5-10.1); Glucose 145 MG/DL (74-106); Osmolality,Calculated 278.7 MOS/KG (273-304); Potassium 3.6 MMOL/L (3.5-5.1); Sodium 138 MMOL/L (136-145); Total Protein 7.4 G/DL (6.4-8.3)
[2017-10-11 05:38] LABS: Calcium 7.9 MG/DL (8.5-10.1); Osmolality,Calculated 278.7 MOS/KG (273-304); Potassium 3.6 MMOL/L (3.5-5.1)
[2017-10-11 06:12] LABS: Basophils % 0.1 % (0.0-0.8); Eosinophils % 0.1 % (0.00-10.9); Hematocrit 27.2 VOL% (35.7-47.0); Hemoglobin 7.6 GM/DL (12.0-16.0); Immature Granulocytes % 0.5 %; Immature Granulocytes Absolute 0.07 #; Lymphocytes # 1.5 10*3/uL (1.4-4.0); Lymphocytes % 10.9 % (21.3-54.2); Mean Corpuscular HGB Conc 27.9 GM/DL (32-36); Mean Corpuscular Hemoglobin 20 PG (27-34); Mean Corpuscular Volume 70.5 FL (87-102); Monocytes # 0.5 10*3/uL (0.11-0.8); Monocytes % 3.9 % (1.7-12.7); Neutrophils # 11.8 10*3/uL (1.4-7.4); Neutrophils % 84.5 % (38.7-73.9); Platelet Count 223 T/CUMM (130-400); Red Blood Count 3.86 MC/CUMM (3.8-5.5); Red Cell Distribution Width 18.9 % (9.3-17.3); White Blood Count 13.9 T/CUMM (4-12)
[2017-10-11] MEDS: PANTOPRAZOLE 40 MG TABLET PO SCH ×2 (06:18→18:15)
[2017-10-11 06:23] LABS: Hypochromasia 1+; Microcytosis 1+; Target Cells Slight
[2017-10-11 06:24] LABS: Anisocytosis 1+; Ovalocytes Slight; Platelet Estimate Normal; Stomatocytes Slight; Tear Drop Cells Slight
[2017-10-11] MEDS ORDERED: MAGNESIUM SULF RIDER 2 GM in PREMIX 1 EACH IV ONE (08:19)
[2017-10-11] MEDS ORDERED: POTASSIUM CHLORIDE 20 MEQ TABLET PO ONE ×2 (08:30→11:30)
[2017-10-11] MEDS: predniSONE 20 MG TABLET PO SCH (08:33)
[2017-10-11] MEDS: CARVEDILOL 25 MG TABLET PO SCH ×2 (08:33→20:04)
[2017-10-11] MEDS: THEOPHYLLINE ER (24 HR) 400 MG CAPSULE PO SCH (08:33)
[2017-10-11] MEDS: POTASSIUM CHLORIDE 20 MEQ TABLET PO SCH (08:33)
[2017-10-11] MEDS: ENOXAPARIN 40 MG/0.4 ML SYRINGE SUBCUT SCH (08:33)
[2017-10-11] MEDS: SERTRALINE 100 MG TABLET PO SCH ×2 (08:33→20:04)
[2017-10-11] MEDS: FUROSEMIDE 40 MG/4 ML VIAL IV SCH (08:34)
[2017-10-11] MEDS: INSULIN REGULAR 100 UNIT/ML SUBCUT SCH ×4 (08:38→20:07)
[2017-10-11] MEDS: BUDESONIDE/FORMOTEROL 160-4.5 INHALER 6 GM INH SCH ×2 (09:36→21:14)
[2017-10-11] MEDS: LISINOPRIL 20 MG TABLET PO SCH (18:15)
[2017-10-11] MEDS: ATORVASTATIN 40 MG TABLET PO SCH (20:03)
[2017-10-11] MEDS ORDERED: PROMETHAZINE 25 MG/1 ML VIAL IM PRN (21:10)
[2017-10-11] MEDS: MEPERIDINE 50 MG/1 ML VIAL IM PRN (22:45)
[2017-10-12] MEDS: HYDROmorphone 2 MG TABLET PO PRN ×3 (01:56→12:34)
[2017-10-12] MEDS: MEPERIDINE 50 MG/1 ML VIAL IM PRN ×5 (03:18→21:42)
[2017-10-12 05:57] LABS: Calcium 8.3 MG/DL (8.5-10.1); Osmolality,Calculated 276.7 MOS/KG (273-304); Potassium 3.7 MMOL/L (3.5-5.1)
[2017-10-12] MEDS: PANTOPRAZOLE 40 MG TABLET PO SCH ×2 (06:22→18:54)
[2017-10-12] MEDS: POTASSIUM CHLORIDE 20 MEQ TABLET PO SCH (08:30)
[2017-10-12] MEDS: SERTRALINE 100 MG TABLET PO SCH ×2 (08:31→21:41)
[2017-10-12] MEDS: CARVEDILOL 25 MG TABLET PO SCH ×2 (08:31→21:40)
[2017-10-12] MEDS: THEOPHYLLINE ER (24 HR) 400 MG CAPSULE PO SCH (08:31)
[2017-10-12] MEDS: predniSONE 20 MG TABLET PO SCH (08:31)
[2017-10-12] MEDS: FUROSEMIDE 40 MG/4 ML VIAL IV SCH ×2 (08:33→08:38)
[2017-10-12] MEDS: INSULIN REGULAR 100 UNIT/ML SUBCUT SCH ×4 (08:33→21:40)
[2017-10-12] MEDS: ENOXAPARIN 40 MG/0.4 ML SYRINGE SUBCUT SCH (08:33)
[2017-10-12] MEDS: BUDESONIDE/FORMOTEROL 160-4.5 INHALER 6 GM INH SCH ×2 (08:37→21:41)
[2017-10-12] MEDS: LISINOPRIL 20 MG TABLET PO SCH (18:54)
[2017-10-12] MEDS: ATORVASTATIN 40 MG TABLET PO SCH (21:42)
[2017-10-13] MEDS: MEPERIDINE 50 MG/1 ML VIAL IM PRN ×3 (01:40→09:33)
[2017-10-13] MEDS: PANTOPRAZOLE 40 MG TABLET PO SCH ×2 (06:11→22:06)
[2017-10-13 06:52] LABS: Basophils # 0.1 10*3/uL (0.0-0.2); Basophils % 0.4 % (0.0-0.8); Eosinophils % 0.2 % (0.00-10.9); Hemoglobin 7.5 GM/DL (12.0-16.0); Immature Granulocytes % 0.5 %; Immature Granulocytes Absolute 0.06 #; Lymphocytes % 22.9 % (21.3-54.2); Mean Corpuscular HGB Conc 27.8 GM/DL (32-36); Mean Corpuscular Hemoglobin 20 PG (27-34); Mean Corpuscular Volume 72.2 FL (87-102); Monocytes # 0.7 10*3/uL (0.11-0.8); Monocytes % 5.4 % (1.7-12.7); Neutrophils # 9.2 10*3/uL (1.4-7.4); Neutrophils % 70.6 % (38.7-73.9); Platelet Count 260 T/CUMM (130-400); Red Blood Count 3.74 MC/CUMM (3.8-5.5); Red Cell Distribution Width 18.7 % (9.3-17.3)
[2017-10-13 06:56] LABS: Calcium 8.3 MG/DL (8.5-10.1); Osmolality,Calculated 279.5 MOS/KG (273-304); Potassium 3.7 MMOL/L (3.5-5.1)
[2017-10-13 07:02] LABS: Hypochromasia 1+; Macrocytosis 1+; Polychromasia Slight
[2017-10-13] MEDS: BUDESONIDE/FORMOTEROL 160-4.5 INHALER 6 GM INH SCH ×2 (09:31→22:07)
[2017-10-13] MEDS: POTASSIUM CHLORIDE 20 MEQ TABLET PO SCH (09:32)
[2017-10-13] MEDS: THEOPHYLLINE ER (24 HR) 400 MG CAPSULE PO SCH (09:32)
[2017-10-13] MEDS: SERTRALINE 100 MG TABLET PO SCH ×2 (09:32→22:02)
[2017-10-13] MEDS: CARVEDILOL 25 MG TABLET PO SCH ×2 (09:32→22:01)
[2017-10-13] MEDS: predniSONE 20 MG TABLET PO SCH (09:33)
[2017-10-13] MEDS: FUROSEMIDE 40 MG/4 ML VIAL IV SCH (09:34)
[2017-10-13] MEDS: INSULIN REGULAR 100 UNIT/ML SUBCUT SCH ×4 (09:36→22:16)
[2017-10-13] MEDS: ENOXAPARIN 40 MG/0.4 ML SYRINGE SUBCUT SCH (09:36)
[2017-10-13] MEDS: HYDROmorphone 2 MG TABLET PO PRN (12:48)
[2017-10-13] MEDS: LISINOPRIL 20 MG TABLET PO SCH (22:01)
[2017-10-13] MEDS: ATORVASTATIN 40 MG TABLET PO SCH (22:01)
[2017-10-14] MEDS: PANTOPRAZOLE 40 MG TABLET PO SCH (07:44)
[2017-10-14] MEDS: INSULIN REGULAR 100 UNIT/ML SUBCUT SCH ×2 (08:19→12:37)
[2017-10-14] MEDS: ENOXAPARIN 40 MG/0.4 ML SYRINGE SUBCUT SCH (09:52)
[2017-10-14] MEDS: FUROSEMIDE 40 MG/4 ML VIAL IV SCH (09:54)
[2017-10-14] MEDS: POTASSIUM CHLORIDE 20 MEQ TABLET PO SCH (09:55)
[2017-10-14] MEDS: CARVEDILOL 25 MG TABLET PO SCH (09:55)
[2017-10-14] MEDS: THEOPHYLLINE ER (24 HR) 400 MG CAPSULE PO SCH (09:55)
[2017-10-14] MEDS: predniSONE 20 MG TABLET PO SCH (09:55)
[2017-10-14] MEDS: SERTRALINE 100 MG TABLET PO SCH (09:57)
[2017-10-14] MEDS: BUDESONIDE/FORMOTEROL 160-4.5 INHALER 6 GM INH SCH (09:58)
[2017-10-14 12:09] VITALS: BP 146/82
== END 2017-10-14 14:15 | disposition swing bed (61) | DRG 313 ==
LOC: EDBD → EDUNIT# → N.ED 19:09 → N.EDINP 21:00 → N.3E 22:27 → N.ICU 10-10 18:24 → N.3E 10-11 22:12
PROVIDERS: ADMIT Orthopaedic Surgery; ATTEND Orthopaedic Surgery

== ENCOUNTER 2018-11-25 16:25 | Inpatient (IN) ==
[2018-11-25 17:38] LABS: ABG Base Excess 5.6 MMOL/L (-2.5-2.5); ABG HCO3 33.9 MMOL/L (20-26); ABG Oxygen Saturation 83.9 % (95-100); ABG PH 7.255 (7.35-7.45); ABG PO2 57.8 MM HG (80-95); ABG TCO2 36.3 MMOL/L (23-27)
[2018-11-25 17:40] LABS: ABG PCO2 78.1 MM HG (35-48)
[2018-11-25] MEDS ORDERED: FUROSEMIDE 40 MG/4 ML VIAL IV STA (17:42)
[2018-11-25 18:46] LABS: Basophils # 0.1 10*3/uL (0.0-0.2); Basophils % 0.4 % (0.0-0.8); Hematocrit 25.8 VOL% (35.7-47.0); Hemoglobin 6.9 GM/DL (12.0-16.0); Immature Granulocytes % 4.7 %; Immature Granulocytes Absolute 0.66 #; Lymphocytes # 1.4 10*3/uL (1.4-4.0); Lymphocytes % 9.7 % (21.3-54.2); Mean Corpuscular HGB Conc 26.7 GM/DL (32-36); Mean Corpuscular Volume 71.9 FL (87-102); Monocytes % 4.3 % (1.7-12.7); NRBC # 0.04 10*3/uL; Neutrophils % 80.9 % (38.7-73.9); Platelet Count 197 T/CUMM (130-400); Red Blood Count 3.59 MC/CUMM (3.8-5.5); Red Cell Distribution Width 19.9 % (9.3-17.3); White Blood Count 14.1 T/CUMM (4-12)
[2018-11-25 18:51] LABS: Anisocytosis 1+; Band Neutrophils 1 % (0-10); Hypochromasia 1+; Lymphocytes 11 % (20-55); Segmented Neutrophils 87 % (50-85); Total Cells Counted 100
[2018-11-25 18:52] LABS: Elliptocytes Few; Platelet Estimate Adequate; Stomatocytes Few; Target Cells Few
[2018-11-25] MEDS ORDERED: DEXTROSE 50% 25 GM/50 ML SYRINGE IV PRN (18:55)
[2018-11-25] MEDS ORDERED: ALBUTEROL 2.5 MG/3 ML NEB RESP TX PRN (18:55)
[2018-11-25] MEDS ORDERED: GLUCAGON 1 MG VIAL IM PRN (18:55)
[2018-11-25] MEDS ORDERED: MAGNESIUM SULF RIDER 4 GM in PREMIX 1 EACH IV PRN (18:55)
[2018-11-25] MEDS: LEVOFLOXACIN INJ 500 MG in PREMIX 1 EACH IV SCH (20:40)
[2018-11-25 20:43] LABS: Allen Test Positive; Pt O2 Delivery Device BIPAP
[2018-11-25 20:45] LABS: ABG Base Excess 6.7 MMOL/L (-2.5-2.5); ABG HCO3 30.5 MMOL/L (20-26); ABG Oxygen Saturation 95.9 % (95-100); ABG PH 7.281 (7.35-7.45); ABG PO2 88.8 MM HG (80-95); ABG TCO2 33.3 MMOL/L (23-27)
[2018-11-25] MEDS: INSULIN REGULAR 100 UNIT/ML SUBCUT SCH (20:45)
[2018-11-25 20:46] LABS: ABG PCO2 74.2 MM HG (35-48)
[2018-11-25] MEDS: ALBUTEROL/IPRATROPIUM 3 ML NEB RESP TX SCH (20:46)
[2018-11-25 21:04] LABS: Albumin 3.7 G/DL (3.4-5.0); Bilirubin,Total 1.4 MG/DL (0.2-1.0); Calcium 8.3 MG/DL (8.5-10.1); Osmolality,Calculated 255.9 MOS/KG (273-304); Total Protein 8.8 G/DL (6.4-8.3)
[2018-11-25] MEDS ORDERED: FUROSEMIDE 40 MG/4 ML VIAL IM ONE (22:00)
[2018-11-25] MEDS ORDERED: FUROSEMIDE 40 MG/4 ML VIAL IV ONE (22:30)
[2018-11-25] MEDS: CARVEDILOL 25 MG TABLET PO SCH (23:00)
[2018-11-25] MEDS: LISINOPRIL 20 MG TABLET PO SCH (23:00)
[2018-11-25] MEDS: SERTRALINE 100 MG TABLET PO SCH (23:01)
[2018-11-25] MEDS: BUDESONIDE/FORMOTEROL 160-4.5 INHALER 6 GM INH SCH (23:01)
[2018-11-26] MEDS ORDERED: LABETALOL 20 MG/4 ML SYRINGE IV PRN (00:31)
[2018-11-26] MEDS: ALBUTEROL/IPRATROPIUM 3 ML NEB RESP TX SCH ×4 (01:25→19:50)
[2018-11-26 07:16] LABS: ABG Base Excess 11.9 MMOL/L (-2.5-2.5); ABG HCO3 35.7 MMOL/L (20-26); ABG Oxygen Saturation 98.9 % (95-100); ABG PH 7.336 (7.35-7.45); ABG TCO2 37.8 MMOL/L (23-27); Allen Test Positive; Pt O2 Delivery Device BIPAP
[2018-11-26 07:17] LABS: ABG PCO2 74.6 MM HG (35-48)
[2018-11-26] MEDS: INSULIN REGULAR 100 UNIT/ML SUBCUT SCH ×4 (07:31→22:07)
[2018-11-26] MEDS ORDERED: FUROSEMIDE 40 MG/4 ML VIAL IV SCH (08:00)
[2018-11-26] MEDS ORDERED: FUROSEMIDE 40 MG/4 ML VIAL IM SCH (08:00)
[2018-11-26 08:08] LABS: Albumin 3.4 G/DL (3.4-5.0); Bilirubin,Total 0.8 MG/DL (0.2-1.0); Osmolality,Calculated 267.1 MOS/KG (273-304); Total Protein 8.1 G/DL (6.4-8.3)
[2018-11-26 08:11] LABS: Apearance,Urine CLEAR (Clear); Bacteria,Urine Occasional /HPF (Few); Bilirubin,Urine Negative (Negative); Blood, Urine Moderate mg/dL (Negative); Glucose,Urine (UA) Negative (Negative); Ketones,Urine Negative (Negative); Nitrite,Urine Negative (Negative); Protein,Urine 100 MG/DL; RBC,Urine 30 /HPF (0-4); Squamous Epithelial Cell,Urine Occasional /HPF (0-10); Urine Color Yellow (Yellow); Urine Urobilinogen < 2.0 EU/DL (0.2-1.0); WBC,Urine 15 /HPF (0-6)
[2018-11-26 08:23] LABS: Basophils % 0.2 % (0.0-0.8); Eosinophils % 0.1 % (0.00-10.9); Hematocrit 25.5 VOL% (35.7-47.0); Immature Granulocytes % 1.1 %; Lymphocytes # 1.3 10*3/uL (1.4-4.0); Lymphocytes % 14.1 % (21.3-54.2); Mean Corpuscular HGB Conc 27.1 GM/DL (32-36); Mean Corpuscular Volume 70.6 FL (87-102); NRBC # 0.02 10*3/uL; Neutrophils % 78.5 % (38.7-73.9); Platelet Count 176 T/CUMM (130-400); Red Blood Count 3.61 MC/CUMM (3.8-5.5); Red Cell Distribution Width 20.4 % (9.3-17.3); White Blood Count 9.3 T/CUMM (4-12)
[2018-11-26 08:23] LABS: Barbiturates Screen,Urine Negative (Negative); Benzodiazepines Screen,Urine Negative (Negative); Cannabinoid Screen,Urine Negative (Negative); Opiate Screen,Urine Negative (Negative); Phencyclidine Screen,Urine Negative (Negative)
[2018-11-26 08:26] LABS: Hemoglobin 6.9 GM/DL (12.0-16.0)
[2018-11-26 08:50] LABS: Hypochromasia 2+
[2018-11-26 08:51] LABS: Anisocytosis 1+; Microcytosis 1+; Ovalocytes Slight; Polychromasia Slight; Tear Drop Cells Slight
[2018-11-26 08:52] LABS: Platelet Estimate Adequate
[2018-11-26] MEDS ORDERED: PANTOPRAZOLE 40 MG VIAL IV SCH (09:00)
[2018-11-26] MEDS ORDERED: TRIAMTERENE/HCTZ 37.5-25 MG CAPSULE PO SCH (09:00)
[2018-11-26] MEDS: SERTRALINE 100 MG TABLET PO SCH ×2 (09:26→21:32)
[2018-11-26] MEDS: FUROSEMIDE 40 MG/4 ML VIAL IV SCH ×2 (09:26→16:46)
[2018-11-26] MEDS: THEOPHYLLINE ER (24 HR) 400 MG CAPSULE PO SCH (09:26)
[2018-11-26] MEDS: POTASSIUM CHLORIDE 20 MEQ TABLET PO SCH (09:26)
[2018-11-26] MEDS: ENOXAPARIN 40 MG/0.4 ML SYRINGE SUBCUT SCH (09:27)
[2018-11-26] MEDS: CARVEDILOL 25 MG TABLET PO SCH ×2 (09:27→21:32)
[2018-11-26] MEDS: methylPREDNISolone SOD SUC 40 MG/1 ML VIAL IV SCH ×2 (09:32→16:46)
[2018-11-26] MEDS: BUDESONIDE/FORMOTEROL 160-4.5 INHALER 6 GM INH SCH ×2 (09:35→22:08)
[2018-11-26] MEDS: MAGNESIUM SULF RIDER 2 GM in PREMIX 1 EACH IV PRN (10:35)
[2018-11-26] MEDS: PANTOPRAZOLE 40 MG TABLET PO SCH (18:04)
[2018-11-26] MEDS: PROMETHAZINE 25 MG/1 ML VIAL IM PRN (19:26)
[2018-11-26] MEDS: LEVOFLOXACIN INJ 500 MG in PREMIX 1 EACH IV SCH (19:29)
[2018-11-26] MEDS: LISINOPRIL 20 MG TABLET PO SCH (21:32)
[2018-11-27] MEDS: ALBUTEROL/IPRATROPIUM 3 ML NEB RESP TX SCH ×4 (00:35→18:59)
[2018-11-27] MEDS: methylPREDNISolone SOD SUC 40 MG/1 ML VIAL IV SCH ×3 (01:08→16:48)
[2018-11-27] MEDS: PROMETHAZINE 25 MG/1 ML VIAL IM PRN ×4 (04:08→22:55)
[2018-11-27] MEDS: PANTOPRAZOLE 40 MG TABLET PO SCH ×2 (06:53→18:13)
[2018-11-27 07:19] LABS: Basophils % 0.1 % (0.0-0.8); Hematocrit 27.8 VOL% (35.7-47.0); Hemoglobin 7.4 GM/DL (12.0-16.0); Immature Granulocytes % 2.2 %; Immature Granulocytes Absolute 0.27 #; Lymphocytes # 0.9 10*3/uL (1.4-4.0); Lymphocytes % 7.3 % (21.3-54.2); Mean Corpuscular HGB Conc 26.6 GM/DL (32-36); Mean Corpuscular Volume 71.3 FL (87-102); Monocytes % 1.8 % (1.7-12.7); Neutrophils % 88.6 % (38.7-73.9); Platelet Count 252 T/CUMM (130-400); Red Cell Distribution Width 20.7 % (9.3-17.3); White Blood Count 12.5 T/CUMM (4-12)
[2018-11-27 07:22] LABS: Hypochromasia 2+
[2018-11-27 07:23] LABS: Anisocytosis 1+; Microcytosis 1+; Ovalocytes Slight; Polychromasia Slight; Tear Drop Cells Slight
[2018-11-27 07:25] LABS: Platelet Estimate Normal
[2018-11-27 07:34] LABS: Albumin 3.4 G/DL (3.4-5.0); Bilirubin,Total 0.5 MG/DL (0.2-1.0); Osmolality,Calculated 272.4 MOS/KG (273-304); Total Protein 8.5 G/DL (6.4-8.3)
[2018-11-27] MEDS: BUDESONIDE/FORMOTEROL 160-4.5 INHALER 6 GM INH SCH ×2 (09:03→21:37)
[2018-11-27] MEDS: FUROSEMIDE 40 MG/4 ML VIAL IV SCH ×2 (09:04→16:47)
[2018-11-27] MEDS: CARVEDILOL 25 MG TABLET PO SCH ×2 (09:05→23:40)
[2018-11-27] MEDS: POTASSIUM CHLORIDE 20 MEQ TABLET PO SCH (09:05)
[2018-11-27] MEDS: THEOPHYLLINE ER (24 HR) 400 MG CAPSULE PO SCH (09:05)
[2018-11-27] MEDS: ENOXAPARIN 40 MG/0.4 ML SYRINGE SUBCUT SCH (09:05)
[2018-11-27] MEDS: INSULIN REGULAR 100 UNIT/ML SUBCUT SCH ×4 (09:05→21:37)
[2018-11-27] MEDS: SERTRALINE 100 MG TABLET PO SCH ×2 (09:05→21:37)
[2018-11-27] MEDS: LEVOFLOXACIN INJ 500 MG in PREMIX 1 EACH IV SCH (21:37)
[2018-11-27] MEDS: LISINOPRIL 20 MG TABLET PO SCH (23:40)
[2018-11-28] MEDS: ALBUTEROL/IPRATROPIUM 3 ML NEB RESP TX SCH ×4 (00:10→18:50)
[2018-11-28] MEDS: methylPREDNISolone SOD SUC 40 MG/1 ML VIAL IV SCH ×3 (02:29→16:52)
[2018-11-28] MEDS: PANTOPRAZOLE 40 MG TABLET PO SCH ×3 (06:40→18:13)
[2018-11-28 07:25] LABS: Calcium 7.7 MG/DL (8.5-10.1); Osmolality,Calculated 279.5 MOS/KG (273-304)
[2018-11-28 07:37] LABS: Basophils % 0.1 % (0.0-0.8); Eosinophils % 0.1 % (0.00-10.9); Hematocrit 29.6 VOL% (35.7-47.0); Immature Granulocytes % 0.9 %; Immature Granulocytes Absolute 0.14 #; Lymphocytes # 1.2 10*3/uL (1.4-4.0); Mean Corpuscular Volume 72.9 FL (87-102); Monocytes % 3.4 % (1.7-12.7); Neutrophils % 87.5 % (38.7-73.9); Platelet Count 219 T/CUMM (130-400); Red Blood Count 4.06 MC/CUMM (3.8-5.5); Red Cell Distribution Width 20.2 % (9.3-17.3); White Blood Count 15.2 T/CUMM (4-12)
[2018-11-28 07:38] LABS: Hemoglobin 7.7 GM/DL (12.0-16.0)
[2018-11-28] MEDS: BUDESONIDE/FORMOTEROL 160-4.5 INHALER 6 GM INH SCH ×2 (08:49→21:34)
[2018-11-28] MEDS: INSULIN REGULAR 100 UNIT/ML SUBCUT SCH ×4 (08:49→21:25)
[2018-11-28] MEDS: ENOXAPARIN 40 MG/0.4 ML SYRINGE SUBCUT SCH (08:49)
[2018-11-28] MEDS: THEOPHYLLINE ER (24 HR) 400 MG CAPSULE PO SCH (08:50)
[2018-11-28] MEDS: POTASSIUM CHLORIDE 20 MEQ TABLET PO SCH (08:50)
[2018-11-28] MEDS: SERTRALINE 100 MG TABLET PO SCH ×2 (08:50→21:25)
[2018-11-28] MEDS: CARVEDILOL 25 MG TABLET PO SCH ×2 (08:50→21:25)
[2018-11-28] MEDS: PROMETHAZINE 25 MG/1 ML VIAL IM PRN ×3 (09:01→23:08)
[2018-11-28] MEDS: LEVOFLOXACIN INJ 500 MG in PREMIX 1 EACH IV SCH (21:24)
[2018-11-29] MEDS: ALBUTEROL/IPRATROPIUM 3 ML NEB RESP TX SCH ×4 (00:36→19:44)
[2018-11-29 06:32] LABS: Basophils % 0.1 % (0.0-0.8); Hematocrit 28.5 VOL% (35.7-47.0); Immature Granulocytes % 0.7 %; Immature Granulocytes Absolute 0.09 #; Lymphocytes # 1.3 10*3/uL (1.4-4.0); Lymphocytes % 9.8 % (21.3-54.2); Mean Corpuscular HGB Conc 26.3 GM/DL (32-36); Mean Corpuscular Volume 72.9 FL (87-102); Monocytes % 5.3 % (1.7-12.7); Neutrophils % 84.1 % (38.7-73.9); Platelet Count 207 T/CUMM (130-400); Red Blood Count 3.91 MC/CUMM (3.8-5.5); Red Cell Distribution Width 20.9 % (9.3-17.3); White Blood Count 13.3 T/CUMM (4-12)
[2018-11-29 06:33] LABS: Hemoglobin 7.5 GM/DL (12.0-16.0)
[2018-11-29 06:36] LABS: Hypochromasia 1+; Platelet Estimate Normal; Polychromasia Few
[2018-11-29 06:42] LABS: Calcium 7.8 MG/DL (8.5-10.1); Osmolality,Calculated 286.1 MOS/KG (273-304)
[2018-11-29] MEDS: methylPREDNISolone SOD SUC 40 MG/1 ML VIAL IV SCH ×3 (07:01→16:17)
[2018-11-29] MEDS: THEOPHYLLINE ER (24 HR) 400 MG CAPSULE PO SCH (10:03)
[2018-11-29] MEDS: PROMETHAZINE 25 MG/1 ML VIAL IM PRN ×2 (10:04→21:53)
[2018-11-29] MEDS: SERTRALINE 100 MG TABLET PO SCH ×2 (10:04→21:50)
[2018-11-29] MEDS: PANTOPRAZOLE 40 MG TABLET PO SCH ×2 (10:04→19:55)
[2018-11-29] MEDS: POTASSIUM CHLORIDE 20 MEQ TABLET PO SCH (10:04)
[2018-11-29] MEDS: ENOXAPARIN 40 MG/0.4 ML SYRINGE SUBCUT SCH (10:04)
[2018-11-29] MEDS: CARVEDILOL 25 MG TABLET PO SCH ×2 (10:04→21:50)
[2018-11-29] MEDS: INSULIN REGULAR 100 UNIT/ML SUBCUT SCH ×4 (10:15→21:50)
[2018-11-29] MEDS: BUDESONIDE/FORMOTEROL 160-4.5 INHALER 6 GM INH SCH ×2 (10:24→21:48)
[2018-11-29] MEDS: FUROSEMIDE 80 MG TABLET PO SCH (16:17)
[2018-11-29] MEDS: LEVOFLOXACIN INJ 500 MG in PREMIX 1 EACH IV SCH (21:52)
[2018-11-30] MEDS: ALBUTEROL/IPRATROPIUM 3 ML NEB RESP TX SCH ×4 (00:28→19:40)
[2018-11-30] MEDS: methylPREDNISolone SOD SUC 40 MG/1 ML VIAL IV SCH ×3 (02:48→17:09)
[2018-11-30 06:13] LABS: Calcium 7.5 MG/DL (8.5-10.1); Osmolality,Calculated 287.4 MOS/KG (273-304)
[2018-11-30 06:30] LABS: Basophils % 0.2 % (0.0-0.8); Hematocrit 29.3 VOL% (35.7-47.0); Immature Granulocytes % 0.6 %; Immature Granulocytes Absolute 0.07 #; Lymphocytes # 0.9 10*3/uL (1.4-4.0); Lymphocytes % 7.7 % (21.3-54.2); Mean Corpuscular HGB Conc 26.3 GM/DL (32-36); Mean Corpuscular Volume 73.1 FL (87-102); Monocytes % 4.6 % (1.7-12.7); Neutrophils % 86.9 % (38.7-73.9); Platelet Count 210 T/CUMM (130-400); Red Blood Count 4.01 MC/CUMM (3.8-5.5); Red Cell Distribution Width 20.8 % (9.3-17.3); White Blood Count 11.2 T/CUMM (4-12)
[2018-11-30 06:32] LABS: Hemoglobin 7.7 GM/DL (12.0-16.0)
[2018-11-30 07:05] LABS: Anisocytosis 1+; Hypochromasia 3+; Microcytosis 2+
[2018-11-30 07:06] LABS: Platelet Estimate Normal; Polychromasia Slight
[2018-11-30] MEDS: INSULIN REGULAR 100 UNIT/ML SUBCUT SCH ×4 (10:46→21:09)
[2018-11-30] MEDS: POTASSIUM CHLORIDE 20 MEQ TABLET PO SCH (10:47)
[2018-11-30] MEDS: FUROSEMIDE 80 MG TABLET PO SCH ×2 (10:47→17:09)
[2018-11-30] MEDS: THEOPHYLLINE ER (24 HR) 400 MG CAPSULE PO SCH (10:47)
[2018-11-30] MEDS: SERTRALINE 100 MG TABLET PO SCH ×2 (10:47→20:29)
[2018-11-30] MEDS: CARVEDILOL 25 MG TABLET PO SCH ×2 (10:48→20:29)
[2018-11-30] MEDS: ENOXAPARIN 40 MG/0.4 ML SYRINGE SUBCUT SCH (10:48)
[2018-11-30] MEDS: PANTOPRAZOLE 40 MG TABLET PO SCH ×2 (10:48→20:29)
[2018-11-30] MEDS: PROMETHAZINE 25 MG/1 ML VIAL IM PRN ×2 (10:49→18:24)
[2018-11-30] MEDS: BUDESONIDE/FORMOTEROL 160-4.5 INHALER 6 GM INH SCH ×2 (11:00→20:30)
[2018-11-30] MEDS: ACETAMINOPHEN 325 MG TABLET PO PRN (15:10)
[2018-11-30] MEDS: SIMETHICONE CHEW 125 MG TABLET PO PRN (17:09)
[2018-11-30] MEDS: CALCIUM CARBONATE CHEW 500 MG TABLET PO PRN ×2 (17:09→23:06)
[2018-11-30] MEDS: LEVOFLOXACIN INJ 500 MG in PREMIX 1 EACH IV SCH (20:32)
[2018-12-01] MEDS: methylPREDNISolone SOD SUC 40 MG/1 ML VIAL IV SCH ×3 (01:06→20:56)
[2018-12-01] MEDS: ALBUTEROL/IPRATROPIUM 3 ML NEB RESP TX SCH ×4 (01:40→19:25)
[2018-12-01] MEDS: PANTOPRAZOLE 40 MG TABLET PO SCH ×3 (06:08→20:53)
[2018-12-01] MEDS ORDERED: MAGNESIUM HYDROXIDE SUSP 30 ML UDCUP PO PRN (08:52)
[2018-12-01] MEDS: INSULIN GLARGINE 100 UNIT/ML SUBCUT SCH (10:24)
[2018-12-01] MEDS: INSULIN REGULAR 100 UNIT/ML SUBCUT SCH ×4 (10:25→20:59)
[2018-12-01] MEDS: PROMETHAZINE 25 MG/1 ML VIAL IM PRN (10:26)
[2018-12-01] MEDS: ENOXAPARIN 40 MG/0.4 ML SYRINGE SUBCUT SCH (10:27)
[2018-12-01] MEDS: FUROSEMIDE 80 MG TABLET PO SCH ×2 (10:27→16:40)
[2018-12-01] MEDS: SERTRALINE 100 MG TABLET PO SCH ×2 (10:27→20:54)
[2018-12-01] MEDS: THEOPHYLLINE ER (24 HR) 400 MG CAPSULE PO SCH (10:27)
[2018-12-01] MEDS: CARVEDILOL 25 MG TABLET PO SCH ×2 (10:27→20:54)
[2018-12-01] MEDS: POTASSIUM CHLORIDE 20 MEQ TABLET PO SCH (10:27)
[2018-12-01] MEDS: BUDESONIDE/FORMOTEROL 160-4.5 INHALER 6 GM INH SCH ×2 (10:28→20:55)
[2018-12-01 11:11] LABS: Calcium 6.6 MG/DL (8.5-10.1); Osmolality,Calculated 285.7 MOS/KG (273-304)
[2018-12-01 11:24] LABS: Basophils % 0.1 % (0.0-0.8); Hematocrit 31.2 VOL% (35.7-47.0); Hemoglobin 8.2 GM/DL (12.0-16.0); Immature Granulocytes % 0.6 %; Immature Granulocytes Absolute 0.08 #; Lymphocytes # 1.1 10*3/uL (1.4-4.0); Lymphocytes % 8.5 % (21.3-54.2); Mean Corpuscular HGB Conc 26.3 GM/DL (32-36); Mean Corpuscular Volume 71.2 FL (87-102); Monocytes % 4.3 % (1.7-12.7); Neutrophils % 86.5 % (38.7-73.9); Platelet Count 229 T/CUMM (130-400); Red Blood Count 4.38 MC/CUMM (3.8-5.5); Red Cell Distribution Width 20.9 % (9.3-17.3); White Blood Count 13.5 T/CUMM (4-12)
[2018-12-01 11:25] LABS: Platelet Estimate Normal
[2018-12-01 11:26] LABS: Anisocytosis 1+; Hypochromasia Slight; Macrocytosis Slight; Poikilocytosis Slight; Polychromasia Slight; Tear Drop Cells Few
[2018-12-01] MEDS: DOCUSATE SODIUM 100 MG CAPSULE PO SCH ×2 (11:59→20:54)
[2018-12-01] MEDS: LEVOFLOXACIN INJ 500 MG in PREMIX 1 EACH IV SCH (20:53)
[2018-12-01] MEDS: MAGNESIUM SULF RIDER 2 GM in PREMIX 1 EACH IV PRN (22:13)
[2018-12-02] MEDS: ALBUTEROL/IPRATROPIUM 3 ML NEB RESP TX SCH ×5 (01:50→23:59)
[2018-12-02 07:31] LABS: Calcium 7.7 MG/DL (8.5-10.1); Osmolality,Calculated 281.8 MOS/KG (273-304)
[2018-12-02] MEDS: ACETAMINOPHEN 325 MG TABLET PO PRN ×2 (07:38→20:56)
[2018-12-02] MEDS: SIMETHICONE CHEW 125 MG TABLET PO PRN (07:40)
[2018-12-02] MEDS: PANTOPRAZOLE 40 MG TABLET PO SCH ×2 (07:41→20:57)
[2018-12-02] MEDS: CALCIUM CARBONATE CHEW 500 MG TABLET PO PRN (07:41)
[2018-12-02] MEDS: PROMETHAZINE 25 MG/1 ML VIAL IM PRN (07:43)
[2018-12-02 07:44] LABS: Basophils % 0.1 % (0.0-0.8); Hematocrit 30.6 VOL% (35.7-47.0); Hemoglobin 8.1 GM/DL (12.0-16.0); Immature Granulocytes % 0.8 %; Immature Granulocytes Absolute 0.12 #; Lymphocytes # 1.3 10*3/uL (1.4-4.0); Lymphocytes % 8.7 % (21.3-54.2); Mean Corpuscular HGB Conc 26.5 GM/DL (32-36); Mean Corpuscular Volume 71.2 FL (87-102); Monocytes % 3.6 % (1.7-12.7); Neutrophils % 86.8 % (38.7-73.9); Platelet Count 235 T/CUMM (130-400); Red Cell Distribution Width 20.8 % (9.3-17.3); White Blood Count 14.4 T/CUMM (4-12)
[2018-12-02 07:47] LABS: Anisocytosis 1+; Platelet Estimate Normal; Poikilocytosis Slight
[2018-12-02] MEDS: INSULIN REGULAR 100 UNIT/ML SUBCUT SCH ×4 (08:45→20:58)
[2018-12-02] MEDS: INSULIN GLARGINE 100 UNIT/ML SUBCUT SCH (08:45)
[2018-12-02] MEDS: methylPREDNISolone SOD SUC 40 MG/1 ML VIAL IV SCH ×2 (08:46→21:00)
[2018-12-02] MEDS: POTASSIUM CHLORIDE 20 MEQ TABLET PO SCH (08:46)
[2018-12-02] MEDS: SERTRALINE 100 MG TABLET PO SCH ×2 (08:46→20:57)
[2018-12-02] MEDS: THEOPHYLLINE ER (24 HR) 400 MG CAPSULE PO SCH (08:46)
[2018-12-02] MEDS: FUROSEMIDE 80 MG TABLET PO SCH ×2 (08:46→17:14)
[2018-12-02] MEDS: ENOXAPARIN 40 MG/0.4 ML SYRINGE SUBCUT SCH (08:47)
[2018-12-02] MEDS: CARVEDILOL 25 MG TABLET PO SCH ×2 (08:47→20:57)
[2018-12-02] MEDS: DOCUSATE SODIUM 100 MG CAPSULE PO SCH ×2 (08:47→20:57)
[2018-12-02] MEDS: BUDESONIDE/FORMOTEROL 160-4.5 INHALER 6 GM INH SCH ×2 (08:50→20:58)
[2018-12-02] MEDS: LEVOFLOXACIN INJ 500 MG in PREMIX 1 EACH IV SCH (21:05)
[2018-12-03 05:31] LABS: Basophils % 0.2 % (0.0-0.8); Hematocrit 31.6 VOL% (35.7-47.0); Immature Granulocytes % 1.1 %; Immature Granulocytes Absolute 0.17 #; Mean Corpuscular HGB Conc 26.9 GM/DL (32-36); Mean Corpuscular Volume 70.7 FL (87-102); Neutrophils % 88.7 % (38.7-73.9); Platelet Count 197 T/CUMM (130-400); Red Blood Count 4.47 MC/CUMM (3.8-5.5); Red Cell Distribution Width 20.5 % (9.3-17.3); White Blood Count 14.8 T/CUMM (4-12)
[2018-12-03 05:59] LABS: Calcium 7.9 MG/DL (8.5-10.1); Osmolality,Calculated 282.9 MOS/KG (273-304)
[2018-12-03 06:07] LABS: Hemoglobin 8.5 GM/DL (12.0-16.0)
[2018-12-03 06:08] LABS: Anisocytosis 1+; Hypochromasia 2+; Microcytosis 2+
[2018-12-03 06:09] LABS: Stomatocytes Slight
[2018-12-03 06:10] LABS: Platelet Estimate Normal
[2018-12-03] MEDS: PANTOPRAZOLE 40 MG TABLET PO SCH ×2 (06:16→18:21)
[2018-12-03] MEDS: ALBUTEROL/IPRATROPIUM 3 ML NEB RESP TX SCH ×3 (07:19→19:46)
[2018-12-03] MEDS: INSULIN GLARGINE 100 UNIT/ML SUBCUT SCH (08:57)
[2018-12-03] MEDS: ENOXAPARIN 40 MG/0.4 ML SYRINGE SUBCUT SCH (08:57)
[2018-12-03] MEDS: INSULIN REGULAR 100 UNIT/ML SUBCUT SCH ×4 (08:57→21:11)
[2018-12-03] MEDS: SERTRALINE 100 MG TABLET PO SCH ×2 (08:58→21:11)
[2018-12-03] MEDS: DOCUSATE SODIUM 100 MG CAPSULE PO SCH ×2 (08:58→21:11)
[2018-12-03] MEDS: POTASSIUM CHLORIDE 20 MEQ TABLET PO SCH (08:58)
[2018-12-03] MEDS: THEOPHYLLINE ER (24 HR) 400 MG CAPSULE PO SCH (08:58)
[2018-12-03] MEDS: CARVEDILOL 25 MG TABLET PO SCH ×2 (08:58→21:11)
[2018-12-03] MEDS: FUROSEMIDE 80 MG TABLET PO SCH ×2 (08:58→16:56)
[2018-12-03] MEDS: BUDESONIDE/FORMOTEROL 160-4.5 INHALER 6 GM INH SCH ×2 (08:59→21:12)
[2018-12-03] MEDS: methylPREDNISolone SOD SUC 40 MG/1 ML VIAL IV SCH (08:59)
[2018-12-03] MEDS: PROMETHAZINE 25 MG/1 ML VIAL IM PRN ×2 (09:15→17:00)
[2018-12-03] MEDS: ACETAMINOPHEN 325 MG TABLET PO PRN (13:44)
[2018-12-03] MEDS ORDERED: INSULIN GLARGINE 100 UNIT/ML SUBCUT SCH (15:35)
[2018-12-03] MEDS ORDERED: ZALEPLON 5 MG CAPSULE PO PRN (20:30)
[2018-12-04] MEDS: ALBUTEROL/IPRATROPIUM 3 ML NEB RESP TX SCH ×3 (02:20→14:10)
[2018-12-04] MEDS: PROMETHAZINE 25 MG/1 ML VIAL IM PRN ×2 (04:22→12:26)
[2018-12-04 06:07] LABS: Anisocytosis Slight; Microcytosis Slight; Ovalocytes Slight; Target Cells Slight
[2018-12-04 06:08] LABS: Platelet Estimate Adequate
[2018-12-04 06:17] LABS: Basophils % 0.1 % (0.0-0.8); Hematocrit 33.4 VOL% (35.7-47.0); Hemoglobin 9.1 GM/DL (12.0-16.0); Immature Granulocytes % 0.9 %; Immature Granulocytes Absolute 0.18 #; Lymphocytes # 3.1 10*3/uL (1.4-4.0); Lymphocytes % 16.3 % (21.3-54.2); Mean Corpuscular HGB Conc 27.2 GM/DL (32-36); Mean Corpuscular Volume 69.7 FL (87-102); Monocytes % 6.3 % (1.7-12.7); Neutrophils % 76.4 % (38.7-73.9); Platelet Count 219 T/CUMM (130-400); Red Blood Count 4.79 MC/CUMM (3.8-5.5); Red Cell Distribution Width 20.5 % (9.3-17.3); White Blood Count 19.2 T/CUMM (4-12)
[2018-12-04 06:20] LABS: Osmolality,Calculated 285.5 MOS/KG (273-304)
[2018-12-04] MEDS: PANTOPRAZOLE 40 MG TABLET PO SCH (07:29)
[2018-12-04] MEDS: INSULIN REGULAR 100 UNIT/ML SUBCUT SCH ×3 (07:49→16:36)
[2018-12-04] MEDS ORDERED: LACTATED RINGERS 500 ML IV SCH (08:00)
[2018-12-04] MEDS ORDERED: predniSONE 10 MG TABLET PO SCH (09:00)
[2018-12-04] MEDS ORDERED: ETOMIDATE 20 MG/10 ML VIAL IV ONE (09:00)
[2018-12-04] MEDS ORDERED: LIDOCAINE 100 MG/5 ML SYRINGE ONE (09:00)
[2018-12-04] MEDS ORDERED: PROPOFOL 200 MG/20 ML VIAL IV ONE (09:00)
[2018-12-04] MEDS ORDERED: FLUCONAZOLE INJ 100 MG in IV BAG 1 EACH IV SCH (11:30)
[2018-12-04] MEDS ORDERED: DEXTROSE 50% 25 GM/50 ML VIAL IV PRN (12:10)
[2018-12-04] MEDS ORDERED: GLUCAGON 1 MG VIAL IM PRN (12:10)
[2018-12-04] MEDS: THEOPHYLLINE ER (24 HR) 400 MG CAPSULE PO SCH (12:27)
[2018-12-04] MEDS: DOCUSATE SODIUM 100 MG CAPSULE PO SCH (12:27)
[2018-12-04] MEDS: SERTRALINE 100 MG TABLET PO SCH (12:28)
[2018-12-04] MEDS: POTASSIUM CHLORIDE 20 MEQ TABLET PO SCH (12:28)
[2018-12-04] MEDS: FUROSEMIDE 80 MG TABLET PO SCH ×2 (12:28→16:37)
[2018-12-04] MEDS: BUDESONIDE/FORMOTEROL 160-4.5 INHALER 6 GM INH SCH (12:34)
[2018-12-04] MEDS: CARVEDILOL 25 MG TABLET PO SCH (12:38)
[2018-12-04 15:49] VITALS: BP 122/77
== END 2018-12-04 18:14 | disposition swing bed (61) | DRG 133 ==
LOC: EDBD → EDUNIT# → N.ED 16:25 → N.EDINP 18:55 → SUATTDRO 18:55 → N.ICU 19:30 → N.5E 11-26 14:19
PROVIDERS: ADMIT Internal Medicine; ATTEND Internal Medicine

== ENCOUNTER 2019-02-04 20:17 | Observation (INO) ==
[2019-02-04] MEDS ORDERED: FUROSEMIDE 100 MG/10 ML VIAL IV STA (20:43)
[2019-02-04] MEDS ORDERED: methylPREDNISolone SOD SUC 125 MG/2 ML VIAL IV STA (20:43)
[2019-02-04] MEDS ORDERED: ALBUTEROL NEB SOLN 5 MG/ML 20 ML/BOTTLE RESP TX SCH (21:00)
[2019-02-04 21:08] LABS: Basophils # 0.1 10*3/uL (0.0-0.2); Basophils % 0.4 % (0.0-0.8); Eosinophils % 0.3 % (0.00-10.9); Hematocrit 30.2 VOL% (35.7-47.0); Immature Granulocytes Absolute 0.11 #; Lymphocytes # 3.2 10*3/uL (1.4-4.0); Lymphocytes % 28.9 % (21.3-54.2); Mean Corpuscular HGB Conc 26.5 GM/DL (32-36); Monocytes % 5.3 % (1.7-12.7); NRBC # 0.06 10*3/uL; Neutrophils % 64.1 % (38.7-73.9); Platelet Count 208 T/CUMM (130-400); Red Blood Count 4.08 MC/CUMM (3.8-5.5); Red Cell Distribution Width 20.7 % (9.3-17.3); White Blood Count 11.2 T/CUMM (4-12)
[2019-02-04 21:18] LABS: PT Patient Result 10.4 SECS
[2019-02-04 21:30] LABS: Hypochromasia 2+; Lymphocytes 28 % (20-55); Microcytosis 1+; Ovalocytes Slight; Platelet Estimate Normal; Polychromasia Slight; Segmented Neutrophils 66 % (50-85); Total Cells Counted 100
[2019-02-04 21:31] LABS: Stomatocytes Slight; Tear Drop Cells Few
[2019-02-04 21:38] LABS: Albumin 3.5 G/DL (3.4-5.0); Bilirubin,Total 0.4 MG/DL (0.2-1.0); Calcium 8.2 MG/DL (8.5-10.1); Osmolality,Calculated 271.8 MOS/KG (273-304); Total Protein 8.4 G/DL (6.4-8.3)
[2019-02-04] MEDS ORDERED: MAGNESIUM SULF RIDER 2 GM in PREMIX 1 EACH IV STA (22:27)
[2019-02-04] MEDS ORDERED: hydrALAZINE 20 MG/1 ML VIAL IV STA ×2 (23:15→23:59)
[2019-02-04] MEDS ORDERED: hydrALAZINE 20 MG/1 ML VIAL ONE (23:24)
[2019-02-05 00:08] LABS: Apearance,Urine CLEAR (Clear); Bacteria,Urine Occasional /HPF (Few); Barbiturates Screen,Urine Negative (Negative); Benzodiazepines Screen,Urine Negative (Negative); Bilirubin,Urine Negative (Negative); Blood, Urine Negative (Negative); Cannabinoid Screen,Urine Negative (Negative); Glucose,Urine (UA) Negative (Negative); Hyaline Casts,Urine 6 /LPF (0-3); Ketones,Urine Negative (Negative); Mucus,Urine Occasional /LPF (Occasional); Nitrite,Urine Negative (Negative); Opiate Screen,Urine Negative (Negative); Phencyclidine Screen,Urine Negative (Negative); Protein,Urine 30 MG/DL; RBC,Urine 1 /HPF (0-4); Squamous Epithelial Cell,Urine Occasional /HPF (0-10); Urine Color Yellow (Yellow); Urine Specific Gravity 1.005 (1.001-1.035); Urine Urobilinogen < 2.0 EU/DL (0.2-1.0); WBC,Urine 11 /HPF (0-6)
[2019-02-05] MEDS ORDERED: cefTRIAXone 1,000 MG in SODIUM CHLORIDE 0.9% 100 ML IV STA (00:37)
[2019-02-05] MEDS ORDERED: MAGNESIUM SULF RIDER 2 GM in PREMIX 1 EACH IV PRN (00:58)
[2019-02-05] MEDS ORDERED: ZALEPLON 5 MG CAPSULE PO PRN (00:58)
[2019-02-05] MEDS ORDERED: MAGNESIUM SULF RIDER 4 GM in PREMIX 1 EACH IV PRN (00:58)
[2019-02-05] MEDS: ALBUTEROL/IPRATROPIUM 3 ML NEB RESP TX SCH ×3 (07:27→20:08)
[2019-02-05 07:35] LABS: Alanine Aminotransferase 17 U/L (13-56); Albumin 3.6 G/DL (3.4-5.0); Alkaline Phosphatase 153 U/L (45-117); Aspartate Amino Transferase 20 U/L (0-37); Bilirubin,Total < 0.39 MG/DL (0.2-1.0); Blood Urea Nitrogen 9 MG/DL (7-18); Calcium 8.4 MG/DL (8.5-10.1); Glucose 195 MG/DL (74-106); Osmolality,Calculated 278.7 MOS/KG (273-304); Total Protein 9.1 G/DL (6.4-8.3)
[2019-02-05] MEDS ORDERED: FUROSEMIDE 40 MG/4 ML VIAL IV SCH (08:00)
[2019-02-05 08:02] LABS: Basophils # 0.1 10*3/uL (0.0-0.2); Basophils % 0.6 % (0.0-0.8); Hematocrit 32.4 VOL% (35.7-47.0); Immature Granulocytes % 5.6 %; Immature Granulocytes Absolute 0.65 #; Lymphocytes # 1.1 10*3/uL (1.4-4.0); Lymphocytes % 9.2 % (21.3-54.2); Mean Corpuscular HGB Conc 25.6 GM/DL (32-36); Mean Corpuscular Volume 75.2 FL (87-102); Monocytes % 1.6 % (1.7-12.7); NRBC # 0.07 10*3/uL; Platelet Count 203 T/CUMM (130-400); Red Blood Count 4.31 MC/CUMM (3.8-5.5); Red Cell Distribution Width 20.8 % (9.3-17.3); White Blood Count 11.6 T/CUMM (4-12)
[2019-02-05 08:03] LABS: Hemoglobin 8.3 GM/DL (12.0-16.0)
[2019-02-05 08:07] LABS: Band Neutrophils 2 % (0-10); Eosinophils 1 % (0-10); Hypochromasia 2+; Lymphocytes 11 % (20-55); Myelocytes 2 %; Nucleated Red Blood Cells 1 (0-5); Platelet Estimate Adequate; Segmented Neutrophils 84 % (50-85); Total Cells Counted 100
[2019-02-05] MEDS: PANTOPRAZOLE 40 MG TABLET PO SCH (08:40)
[2019-02-05] MEDS: FUROSEMIDE 100 MG/10 ML VIAL IV SCH ×2 (08:41→15:54)
[2019-02-05] MEDS: ENOXAPARIN 40 MG/0.4 ML SYRINGE SUBCUT SCH (08:41)
[2019-02-05] MEDS: ASPIRIN EC 81 MG TABLET PO SCH (11:32)
[2019-02-05] MEDS: ACETAMINOPHEN 325 MG TABLET PO PRN (13:34)
[2019-02-05] MEDS: ATORVASTATIN 80 MG TABLET PO SCH (20:58)
[2019-02-05] MEDS: NYSTATIN CREAM 15 GM TUBE TOP SCH (20:58)
[2019-02-06] MEDS: ALBUTEROL/IPRATROPIUM 3 ML NEB RESP TX SCH ×4 (07:33→19:15)
[2019-02-06] MEDS: FUROSEMIDE 100 MG/10 ML VIAL IV SCH (09:19)
[2019-02-06] MEDS: PANTOPRAZOLE 40 MG TABLET PO SCH (09:29)
[2019-02-06] MEDS: ACETAMINOPHEN 325 MG TABLET PO PRN ×2 (09:29→20:36)
[2019-02-06] MEDS: POTASSIUM CHLORIDE 20 MEQ TABLET PO SCH (09:29)
[2019-02-06] MEDS: ASPIRIN EC 81 MG TABLET PO SCH (09:29)
[2019-02-06] MEDS: ENOXAPARIN 40 MG/0.4 ML SYRINGE SUBCUT SCH (09:30)
[2019-02-06] MEDS: NYSTATIN CREAM 15 GM TUBE TOP SCH ×2 (09:31→20:37)
[2019-02-06] MEDS ORDERED: GLUCAGON 1 MG VIAL IM PRN (12:24)
[2019-02-06] MEDS ORDERED: DEXTROSE 10% 250 ML BAG IV PRN (12:24)
[2019-02-06] MEDS: CARVEDILOL 25 MG TABLET PO SCH ×2 (12:47→20:37)
[2019-02-06 13:10] LABS: Calcium 8.1 MG/DL (8.5-10.1); Osmolality,Calculated 278.5 MOS/KG (273-304)
[2019-02-06 13:18] LABS: Basophils % 0.4 % (0.0-0.8); Eosinophils # 0.1 10*3/uL (0.0-0.87); Eosinophils % 0.7 % (0.00-10.9); Hematocrit 32.2 VOL% (35.7-47.0); Hemoglobin 8.2 GM/DL (12.0-16.0); Immature Granulocytes % 1.1 %; Immature Granulocytes Absolute 0.11 #; Lymphocytes # 2.4 10*3/uL (1.4-4.0); Lymphocytes % 23.2 % (21.3-54.2); Mean Corpuscular HGB Conc 25.5 GM/DL (32-36); Mean Corpuscular Volume 76.3 FL (87-102); Monocytes % 6.3 % (1.7-12.7); NRBC # 0.03 10*3/uL; Neutrophils % 68.3 % (38.7-73.9); Platelet Count 228 T/CUMM (130-400); Red Blood Count 4.22 MC/CUMM (3.8-5.5); Red Cell Distribution Width 21.5 % (9.3-17.3); White Blood Count 10.3 T/CUMM (4-12)
[2019-02-06 13:25] LABS: Anisocytosis 3+; Platelet Estimate Normal; Poikilocytosis 1+; Polychromasia 1+
[2019-02-06 13:26] LABS: Hypochromasia 1+; Macrocytosis 1+; Tear Drop Cells Few
[2019-02-06] MEDS: INSULIN LISPRO 100 UNIT/ML SUBCUT SCH ×2 (17:56→20:35)
[2019-02-06] MEDS: ATORVASTATIN 80 MG TABLET PO SCH (20:36)
[2019-02-06] MEDS ORDERED: LISINOPRIL 20 MG TABLET PO SCH (21:00)
[2019-02-07] MEDS: ALBUTEROL/IPRATROPIUM 3 ML NEB RESP TX SCH ×3 (01:15→13:39)
[2019-02-07 06:06] LABS: Calcium 8.3 MG/DL (8.5-10.1); Osmolality,Calculated 278.7 MOS/KG (273-304)
[2019-02-07] MEDS: CARVEDILOL 25 MG TABLET PO SCH (09:56)
[2019-02-07] MEDS: POTASSIUM CHLORIDE 20 MEQ TABLET PO SCH (09:56)
[2019-02-07] MEDS: ENOXAPARIN 40 MG/0.4 ML SYRINGE SUBCUT SCH (09:57)
[2019-02-07] MEDS: ASPIRIN EC 81 MG TABLET PO SCH (09:57)
[2019-02-07] MEDS: PANTOPRAZOLE 40 MG TABLET PO SCH (09:57)
[2019-02-07] MEDS: NYSTATIN CREAM 15 GM TUBE TOP SCH (09:59)
[2019-02-07] MEDS: INSULIN LISPRO 100 UNIT/ML SUBCUT SCH (09:59)
[2019-02-07 11:43] VITALS: BP 128/76
== END 2019-02-07 14:54 | disposition home or self-care (01) ==
LOC: N.ED 20:17 → N.EDINP 02-05 01:00 → INTOOBSV 02-05 01:00 → N.5E 02-05 01:59
PROVIDERS: ADMIT Internal Medicine; ATTEND Internal Medicine

== ENCOUNTER 2019-02-25 22:10 | Inpatient (IN) ==
[2019-02-25] MEDS ORDERED: FUROSEMIDE 40 MG/4 ML VIAL IV STA (22:29)
[2019-02-25] MEDS ORDERED: NALOXONE 0.4 MG/ML VIAL IV STA (22:29)
[2019-02-25 22:58] LABS: ABG Base Excess 5.7 MMOL/L (-2.5-2.5); ABG HCO3 29.6 MMOL/L (20-26); ABG Oxygen Saturation 99.9 % (95-100); ABG TCO2 34.6 MMOL/L (23-27); Allen Test Positive
[2019-02-25 23:02] LABS: ABG PCO2 93.2 MM HG (35-48); ABG PH 7.198 (7.35-7.45)
[2019-02-25] MEDS ORDERED: SODIUM BICARBONATE 50 MEQ/50 ML VIAL IV STA (23:02)
[2019-02-25] MEDS ORDERED: ALBUTEROL NEB SOLN 5 MG/ML 20 ML/BOTTLE CONT NEB STA (23:03)
[2019-02-25] MEDS ORDERED: hydrALAZINE 20 MG/1 ML VIAL ONE (23:39)
[2019-02-25] MEDS ORDERED: hydrALAZINE 20 MG/1 ML VIAL IV STA (23:44)
[2019-02-25] MEDS ORDERED: SODIUM BICARBONATE 50 MEQ/50 ML SYRINGE IV ONE (23:52)
[2019-02-26 00:04] LABS: INR 0.9; PT Patient Result 10.2 SECS
[2019-02-26 00:17] LABS: Alanine Aminotransferase 14 U/L (13-56); Alkaline Phosphatase 148 U/L (45-117); Aspartate Amino Transferase 31 U/L (0-37); Blood Urea Nitrogen 6 MG/DL (7-18); Calcium 8.5 MG/DL (8.5-10.1); Glucose 115 MG/DL (74-106); Osmolality,Calculated 258.8 MOS/KG (273-304); Total Protein 9.1 G/DL (6.4-8.3)
[2019-02-26] MEDS ORDERED: MAGNESIUM SULF RIDER 2 GM in PREMIX 1 EACH IV STA (00:19)
[2019-02-26 00:27] LABS: Basophils # 0.1 10*3/uL (0.0-0.2); Basophils % 0.5 % (0.0-0.8); Eosinophils % 0.2 % (0.00-10.9); Hematocrit 30.2 VOL% (35.7-47.0); Hemoglobin 8.1 GM/DL (12.0-16.0); Immature Granulocytes % 6.9 %; Immature Granulocytes Absolute 0.91 #; Lymphocytes # 1.9 10*3/uL (1.4-4.0); Lymphocytes % 14.6 % (21.3-54.2); Mean Corpuscular HGB Conc 26.8 GM/DL (32-36); Mean Corpuscular Volume 73.3 FL (87-102); Monocytes % 4.1 % (1.7-12.7); NRBC # 0.09 10*3/uL; Neutrophils % 73.7 % (38.7-73.9); Platelet Count 189 T/CUMM (130-400); Red Blood Count 4.12 MC/CUMM (3.8-5.5); Red Cell Distribution Width 18.6 % (9.3-17.3); White Blood Count 13.1 T/CUMM (4-12)
[2019-02-26 00:40] LABS: ABG Base Excess 10.6 MMOL/L (-2.5-2.5); ABG HCO3 34.1 MMOL/L (20-26); ABG Oxygen Saturation 84.4 % (95-100); ABG PH 7.284 (7.35-7.45); ABG PO2 56.3 MM HG (80-95); ABG TCO2 37.6 MMOL/L (23-27); Allen Test Positive; Pt O2 Delivery Device BIPAP
[2019-02-26] MEDS ORDERED: hydrALAZINE 20 MG/1 ML VIAL IV STA (00:42)
[2019-02-26 00:44] LABS: ABG PCO2 84.4 MM HG (35-48)
[2019-02-26 00:57] LABS: Eosinophils 1 % (0-10); Lymphocytes 14 % (20-55); Segmented Neutrophils 82 % (50-85); Total Cells Counted 100
[2019-02-26 00:58] LABS: Anisocytosis 1+; Hypochromasia 2+; Stomatocytes 2+
[2019-02-26 00:59] LABS: Microcytosis 1+
[2019-02-26 01:00] LABS: Platelet Estimate Normal; Polychromasia Few
[2019-02-26] MEDS ORDERED: VECURONIUM 10 MG VIAL IV ONE (01:15)
[2019-02-26] MEDS ORDERED: ETOMIDATE 20 MG/10 ML VIAL IV ONE (01:16)
[2019-02-26] MEDS ORDERED: DEXTROSE 50% 25 GM/50 ML VIAL IV PRN ×2 (02:11→07:36)
[2019-02-26] MEDS ORDERED: ALBUTEROL 2.5 MG/3 ML NEB RESP TX PRN (02:11)
[2019-02-26] MEDS ORDERED: GLUCAGON 1 MG VIAL IM PRN ×2 (02:11→07:36)
[2019-02-26] MEDS ORDERED: MAGNESIUM SULF RIDER 4 GM in PREMIX 1 EACH IV PRN (02:11)
[2019-02-26] MEDS ORDERED: MAGNESIUM SULF RIDER 2 GM in PREMIX 1 EACH IV PRN (02:11)
[2019-02-26 02:26] LABS: Apearance,Urine CLEAR (Clear); Bilirubin,Urine Negative (Negative); Blood, Urine Small mg/dL (Negative); Glucose,Urine (UA) Negative (Negative); Ketones,Urine Negative (Negative); Nitrite,Urine Negative (Negative); Protein,Urine 30 MG/DL; RBC,Urine <1 /HPF (0-4); Squamous Epithelial Cell,Urine Occasional /HPF (0-10); Urine Color Colorless (Yellow); Urine Specific Gravity 1.004 (1.001-1.035); Urine Urobilinogen < 2.0 EU/DL (0.2-1.0)
[2019-02-26 02:55] LABS: Barbiturates Screen,Urine Negative (Negative); Benzodiazepines Screen,Urine Negative (Negative); Cannabinoid Screen,Urine Negative (Negative); Opiate Screen,Urine Negative (Negative); Phencyclidine Screen,Urine Negative (Negative)
[2019-02-26] MEDS: methylPREDNISolone SOD SUC 40 MG/1 ML VIAL IV SCH ×3 (02:57→23:45)
[2019-02-26] MEDS: PIPERACILLIN/TAZOBACTAM 3,375 MG in SODIUM CHLORIDE 0.9% 100 ML IV SCH ×3 (02:57→18:01)
[2019-02-26] MEDS ORDERED: hydrALAZINE 20 MG/1 ML VIAL IV PRN (03:00)
[2019-02-26 03:03] LABS: ABG Base Excess 11.6 MMOL/L (-2.5-2.5); ABG HCO3 35.4 MMOL/L (20-26); ABG PH 7.335 (7.35-7.45); ABG TCO2 37.3 MMOL/L (23-27); Allen Test Positive; Pt O2 Delivery Device BIPAP
[2019-02-26 03:04] LABS: ABG PCO2 74.9 MM HG (35-48)
[2019-02-26 05:15] LABS: ABG Base Excess 12.1 MMOL/L (-2.5-2.5); ABG HCO3 35.9 MMOL/L (20-26); ABG Oxygen Saturation 99.7 % (95-100); ABG PH 7.342 (7.35-7.45); ABG TCO2 37.6 MMOL/L (23-27); Allen Test Positive; Pt O2 Delivery Device BIPAP
[2019-02-26 05:22] LABS: ABG PCO2 74.4 MM HG (35-48)
[2019-02-26 06:08] LABS: Albumin 3.7 G/DL (3.4-5.0); Bilirubin,Total 1.3 MG/DL (0.2-1.0); Calcium 8.9 MG/DL (8.5-10.1); Osmolality,Calculated 264.4 MOS/KG (273-304); Total Protein 8.3 G/DL (6.4-8.3)
[2019-02-26 06:22] LABS: Basophils % 0.4 % (0.0-0.8); Eosinophils % 0.1 % (0.00-10.9); Hematocrit 29.6 VOL% (35.7-47.0); Hemoglobin 8.1 GM/DL (12.0-16.0); Immature Granulocytes % 2.7 %; Immature Granulocytes Absolute 0.29 #; Lymphocytes # 0.8 10*3/uL (1.4-4.0); Lymphocytes % 7.7 % (21.3-54.2); Mean Corpuscular HGB Conc 27.4 GM/DL (32-36); Mean Corpuscular Volume 72.2 FL (87-102); Monocytes % 3.3 % (1.7-12.7); NRBC # 0.03 10*3/uL; Neutrophils % 85.8 % (38.7-73.9); Platelet Count 211 T/CUMM (130-400); Red Cell Distribution Width 18.6 % (9.3-17.3); White Blood Count 10.9 T/CUMM (4-12)
[2019-02-26 06:26] LABS: Hypochromasia 1+; Platelet Estimate Adequate
[2019-02-26 06:27] LABS: Microcytosis 1+
[2019-02-26] MEDS ORDERED: MAGNESIUM SULF RIDER 2 GM in PREMIX 1 EACH IV ONE (07:33)
[2019-02-26] MEDS ORDERED: VANCOMYCIN INJ 2,000 MG in SODIUM CHLORIDE 0.9% 500 ML IV SCH (08:00)
[2019-02-26] MEDS: ALBUTEROL/IPRATROPIUM 3 ML NEB RESP TX SCH ×3 (08:03→19:12)
[2019-02-26] MEDS: INSULIN REGULAR 100 UNIT/ML SUBCUT SCH ×4 (08:05→20:30)
[2019-02-26] MEDS: SERTRALINE 100 MG TABLET PO SCH ×2 (08:43→20:30)
[2019-02-26] MEDS: CARVEDILOL 25 MG TABLET PO SCH ×2 (08:43→20:31)
[2019-02-26] MEDS: POTASSIUM CHLORIDE 20 MEQ TABLET PO SCH ×3 (08:43→17:48)
[2019-02-26] MEDS: amLODIPine 10 MG TABLET PO SCH (08:43)
[2019-02-26] MEDS: FUROSEMIDE 40 MG/4 ML VIAL IV SCH ×2 (08:44→17:26)
[2019-02-26] MEDS ORDERED: CARVEDILOL 25 MG TABLET PER TUBE SCH (09:00)
[2019-02-26] MEDS ORDERED: POTASSIUM CHLORIDE 20 MEQ TABLET PO SCH (18:00)
[2019-02-26] MEDS: ATORVASTATIN 80 MG TABLET PO SCH (20:30)
[2019-02-26] MEDS: LISINOPRIL 20 MG TABLET PO SCH (20:30)
[2019-02-27] MEDS: ALBUTEROL/IPRATROPIUM 3 ML NEB RESP TX SCH ×4 (00:52→20:20)
[2019-02-27] MEDS: PIPERACILLIN/TAZOBACTAM 3,375 MG in SODIUM CHLORIDE 0.9% 100 ML IV SCH ×3 (02:00→20:58)
[2019-02-27 03:11] LABS: ABG Base Excess 12.5 MMOL/L (-2.5-2.5); ABG HCO3 40.5 MMOL/L (20-26); ABG Oxygen Saturation 96.6 % (95-100); ABG PO2 102.3 MM HG (80-95); Allen Test Positive; Pt O2 Delivery Device BIPAP
[2019-02-27 03:13] LABS: ABG PCO2 80.4 MM HG (35-48)
[2019-02-27 06:04] LABS: Hematocrit 29.3 VOL% (35.7-47.0); Hemoglobin 7.9 GM/DL (12.0-16.0); Platelet Count 200 T/CUMM (130-400); Red Blood Count 3.96 MC/CUMM (3.8-5.5); Red Cell Distribution Width 19.5 % (9.3-17.3); White Blood Count 10.7 T/CUMM (4-12)
[2019-02-27 06:05] LABS: Basophils % 0.1 % (0.0-0.8); Immature Granulocytes % 0.9 %; Lymphocytes # 0.8 10*3/uL (1.4-4.0); Lymphocytes % 7.5 % (21.3-54.2); Monocytes % 1.9 % (1.7-12.7); Neutrophils % 89.6 % (38.7-73.9)
[2019-02-27 06:12] LABS: Calcium 8.4 MG/DL (8.5-10.1); Osmolality,Calculated 277.8 MOS/KG (273-304)
[2019-02-27 06:14] LABS: Hypochromasia 2+; Microcytosis 1+; Ovalocytes Slight; Platelet Estimate Adequate
[2019-02-27] MEDS: INSULIN REGULAR 100 UNIT/ML SUBCUT SCH ×4 (08:38→20:59)
[2019-02-27] MEDS: FUROSEMIDE 40 MG/4 ML VIAL IV SCH (08:55)
[2019-02-27] MEDS: amLODIPine 10 MG TABLET PO SCH (08:56)
[2019-02-27] MEDS: SERTRALINE 100 MG TABLET PO SCH ×2 (08:56→20:59)
[2019-02-27] MEDS: CARVEDILOL 25 MG TABLET PO SCH ×2 (08:56→20:59)
[2019-02-27] MEDS: THEOPHYLLINE ER (24 HR) 400 MG CAPSULE PO SCH (10:26)
[2019-02-27] MEDS: methylPREDNISolone SOD SUC 40 MG/1 ML VIAL IV SCH ×2 (11:33→23:22)
[2019-02-27] MEDS ORDERED: NITROGLYCERIN SL 0.4 MG TABLET SL ONE (18:25)
[2019-02-27] MEDS ORDERED: ASPIRIN CHEW 81 MG TABLET PO ONE ×3 (18:25)
[2019-02-27] MEDS ORDERED: ALUM/MAG/SIMETH/LIDO VISC 1:1 30 ML BOTTLE PO ONE (18:59)
[2019-02-27] MEDS ORDERED: KETOROLAC 15 MG/1 ML VIAL IV ONE (18:59)
[2019-02-27] MEDS: LISINOPRIL 20 MG TABLET PO SCH (20:58)
[2019-02-27] MEDS: ATORVASTATIN 80 MG TABLET PO SCH (20:59)
[2019-02-28] MEDS: ALBUTEROL/IPRATROPIUM 3 ML NEB RESP TX SCH ×4 (00:48→19:34)
[2019-02-28] MEDS: PIPERACILLIN/TAZOBACTAM 3,375 MG in SODIUM CHLORIDE 0.9% 100 ML IV SCH ×3 (05:06→21:21)
[2019-02-28 05:26] LABS: Basophils % 0.1 % (0.0-0.8); Hematocrit 30.5 VOL% (35.7-47.0); Immature Granulocytes % 0.9 %; Immature Granulocytes Absolute 0.09 #; Lymphocytes # 1.2 10*3/uL (1.4-4.0); Lymphocytes % 11.2 % (21.3-54.2); Mean Corpuscular HGB Conc 26.6 GM/DL (32-36); Mean Corpuscular Volume 74.9 FL (87-102); Monocytes % 1.8 % (1.7-12.7); Platelet Count 236 T/CUMM (130-400); Red Blood Count 4.07 MC/CUMM (3.8-5.5); Red Cell Distribution Width 19.4 % (9.3-17.3); White Blood Count 10.5 T/CUMM (4-12)
[2019-02-28 05:59] LABS: Hemoglobin 8.1 GM/DL (12.0-16.0)
[2019-02-28 06:00] LABS: Hypochromasia 1+; Microcytosis 1+; Platelet Estimate Adequate
[2019-02-28 06:03] LABS: Osmolality,Calculated 280.1 MOS/KG (273-304)
[2019-02-28] MEDS: INSULIN REGULAR 100 UNIT/ML SUBCUT SCH ×4 (08:02→21:18)
[2019-02-28] MEDS: SERTRALINE 100 MG TABLET PO SCH ×2 (08:48→21:18)
[2019-02-28] MEDS: amLODIPine 10 MG TABLET PO SCH (08:48)
[2019-02-28] MEDS: CARVEDILOL 25 MG TABLET PO SCH ×2 (08:49→21:18)
[2019-02-28] MEDS ORDERED: FUROSEMIDE 40 MG/4 ML VIAL IV SCH (09:00)
[2019-02-28] MEDS ORDERED: PROMETHAZINE 6.25 MG/5 ML UDCUP PO PRN (10:33)
[2019-02-28] MEDS: THEOPHYLLINE ER (24 HR) 400 MG CAPSULE PO SCH (10:35)
[2019-02-28] MEDS: methylPREDNISolone SOD SUC 40 MG/1 ML VIAL IV SCH ×2 (10:36→22:31)
[2019-02-28] MEDS ORDERED: SUBOXONE SL SCH (11:15)
[2019-02-28] MEDS: PROMETHAZINE 25 MG TABLET PO PRN ×3 (11:23→22:57)
[2019-02-28] MEDS: ATORVASTATIN 80 MG TABLET PO SCH (21:18)
[2019-02-28] MEDS: LISINOPRIL 20 MG TABLET PO SCH (21:18)
[2019-02-28] MEDS ORDERED: KETOROLAC 30 MG/1 ML VIAL IV ONE (22:47)
[2019-03-01] MEDS: ALBUTEROL/IPRATROPIUM 3 ML NEB RESP TX SCH ×4 (01:23→15:05)
[2019-03-01] MEDS: PIPERACILLIN/TAZOBACTAM 3,375 MG in SODIUM CHLORIDE 0.9% 100 ML IV SCH ×2 (04:57→12:06)
[2019-03-01 06:01] LABS: Calcium 8.2 MG/DL (8.5-10.1); Osmolality,Calculated 290.5 MOS/KG (273-304)
[2019-03-01 06:47] LABS: Basophils % 0.1 % (0.0-0.8); Eosinophils % 0.1 % (0.00-10.9); Hematocrit 32.2 VOL% (35.7-47.0); Hemoglobin 8.3 GM/DL (12.0-16.0); Immature Granulocytes % 0.6 %; Immature Granulocytes Absolute 0.07 #; Lymphocytes # 1.3 10*3/uL (1.4-4.0); Mean Corpuscular HGB Conc 25.8 GM/DL (32-36); Mean Corpuscular Volume 75.2 FL (87-102); Monocytes % 2.1 % (1.7-12.7); Neutrophils % 86.1 % (38.7-73.9); Platelet Count 240 T/CUMM (130-400); Red Blood Count 4.28 MC/CUMM (3.8-5.5); Red Cell Distribution Width 19.6 % (9.3-17.3); White Blood Count 12.1 T/CUMM (4-12)
[2019-03-01 06:49] LABS: Hypochromasia 2+; Platelet Estimate Adequate
[2019-03-01] MEDS ORDERED: ACETAMINOPHEN 325 MG TABLET PO PRN (07:51)
[2019-03-01] MEDS: SERTRALINE 100 MG TABLET PO SCH (09:06)
[2019-03-01] MEDS: methylPREDNISolone SOD SUC 40 MG/1 ML VIAL IV SCH (09:07)
[2019-03-01] MEDS: INSULIN REGULAR 100 UNIT/ML SUBCUT SCH ×2 (09:07→12:07)
[2019-03-01] MEDS: THEOPHYLLINE ER (24 HR) 400 MG CAPSULE PO SCH (09:07)
[2019-03-01] MEDS: CARVEDILOL 25 MG TABLET PO SCH (09:07)
[2019-03-01] MEDS: amLODIPine 10 MG TABLET PO SCH (09:07)
[2019-03-01] MEDS: PROMETHAZINE 25 MG TABLET PO PRN (12:04)
[2019-03-01 16:02] VITALS: BP 123/69
== END 2019-03-01 17:20 | disposition home health service (06) | DRG 133 ==
LOC: EDBD → EDUNIT# → N.ED 22:10 → N.EDINP 02-26 00:55 → SUATTDRO 02-26 00:55 → N.CC 02-26 01:21 → N.2E 02-27 14:18
PROVIDERS: ADMIT Internal Medicine; ATTEND Internal Medicine Geriatric Medicine

== ENCOUNTER 2019-06-26 14:06 | Observation (INO) ==
[2019-06-26 14:54] LABS: Apearance,Urine CLEAR (Clear); Bilirubin,Urine Negative (Negative); Blood, Urine Negative (Negative); Glucose,Urine (UA) Negative (Negative); Ketones,Urine Negative (Negative); Nitrite,Urine Negative (Negative); Protein,Urine 100 MG/DL; RBC,Urine 1 /HPF (0-4); Squamous Epithelial Cell,Urine Occasional /HPF (0-10); Urine Color Straw (Yellow); Urine Specific Gravity 1.006 (1.001-1.035); Urine Urobilinogen < 2.0 EU/DL (0.2-1.0); WBC,Urine 1 /HPF (0-6)
[2019-06-26 15:55] LABS: INR 0.9; PT Patient Result 9.9 SECS (9.6-12.2); Partial Thromboplastin Time 24.5 SECS (20.8-36.0)
[2019-06-26 16:13] LABS: Albumin 3.4 G/DL (3.4-5.0); Basophils % 0.3 % (0.0-0.8); Bilirubin,Total 0.6 MG/DL (0.2-1.0); Eosinophils % 0.3 % (0.00-10.9); Hematocrit 30.2 VOL% (35.7-47.0); Immature Granulocytes % 0.3 %; Immature Granulocytes Absolute 0.02 #; Lymphocytes # 1.1 10*3/uL (1.4-4.0); Lymphocytes % 17.1 % (21.3-54.2); Mean Corpuscular HGB Conc 26.5 GM/DL (32-36); Mean Corpuscular Volume 74.4 FL (87-102); Monocytes % 3.5 % (1.7-12.7); NRBC # 0.02 10*3/uL; Neutrophils % 78.5 % (38.7-73.9); Osmolality,Calculated 273.7 MOS/KG (273-304); Platelet Count 160 T/CUMM (130-400); Red Blood Count 4.06 MC/CUMM (3.8-5.5); Red Cell Distribution Width 17.7 % (9.3-17.3); Total Protein 7.5 G/DL (6.4-8.3); White Blood Count 6.2 T/CUMM (4-12)
[2019-06-26 16:14] LABS: Troponin I 0.025 NG/ML (0.00-0.045)
[2019-06-26] MEDS ORDERED: FUROSEMIDE 40 MG/4 ML VIAL IV STA (17:01)
[2019-06-26 17:15] LABS: Anisocytosis 1+; Hypochromasia 2+; Microcytosis 2+
[2019-06-26 17:16] LABS: Platelet Estimate Adequate
[2019-06-26] MEDS ORDERED: ALBUTEROL 2.5 MG/3 ML NEB RESP TX PRN (17:44)
[2019-06-26] MEDS ORDERED: ALUMINUM/MAGNES/SIMETH MAX STR 30 ML UDCUP PO PRN (17:44)
[2019-06-26] MEDS ORDERED: ACETAMINOPHEN 325 MG TABLET PO PRN (17:48)
[2019-06-26] MEDS ORDERED: DEXTROSE 10% 250 ML BAG IV PRN (17:48)
[2019-06-26] MEDS ORDERED: ONDANSETRON 4 MG/2 ML VIAL IV PRN (17:48)
[2019-06-26] MEDS ORDERED: GLUCAGON 1 MG VIAL IM PRN (17:48)
[2019-06-26] MEDS ORDERED: hydrALAZINE 20 MG/1 ML VIAL IV PRN (17:54)
[2019-06-26] MEDS ORDERED: PROMETHAZINE 25 MG/1 ML VIAL IM STA (18:28)
[2019-06-26] MEDS: ALBUTEROL/IPRATROPIUM 3 ML NEB RESP TX SCH (19:55)
[2019-06-26] MEDS ORDERED: PNEUMOCOCCAL VACCINE (13 VALENT) 0.5 ML SYRINGE IM ONE (19:58)
[2019-06-26] MEDS ORDERED: INFLUENZA VIRUS VACCINE 0.5 ML SYRINGE IM ONE (19:58)
[2019-06-26] MEDS: INSULIN REGULAR 100 UNIT/ML SUBCUT SCH (20:37)
[2019-06-26] MEDS: ENOXAPARIN 40 MG/0.4 ML SYRINGE SUBCUT SCH (22:05)
[2019-06-26] MEDS: carvediloL 12.5 MG TABLET PO SCH (22:05)
[2019-06-26] MEDS: ATORVASTATIN 80 MG TABLET PO SCH (22:05)
[2019-06-26 23:55] LABS: Allen Test Positive
[2019-06-26 23:56] LABS: ABG Base Excess 13.6 MMOL/L (-2.5-2.5); ABG HCO3 37.3 MMOL/L (20-26); ABG Oxygen Saturation 89.6 % (95-100); ABG PH 7.375 (7.35-7.45); ABG PO2 52.6 MM HG (80-95); ABG TCO2 38.6 MMOL/L (23-27)
[2019-06-26 23:58] LABS: ABG PCO2 70.8 MM HG (35-48)
[2019-06-27] MEDS: ALBUTEROL/IPRATROPIUM 3 ML NEB RESP TX SCH ×4 (00:46→20:18)
[2019-06-27] MEDS: FUROSEMIDE 40 MG/4 ML VIAL IV SCH ×2 (09:15→16:39)
[2019-06-27] MEDS: LISINOPRIL 10 MG TABLET PO SCH (09:15)
[2019-06-27] MEDS: amLODIPine 10 MG TABLET PO SCH (09:16)
[2019-06-27] MEDS: SERTRALINE 100 MG TABLET PO SCH (09:17)
[2019-06-27] MEDS: PANTOPRAZOLE 40 MG TABLET PO SCH (09:17)
[2019-06-27] MEDS: ASPIRIN EC 81 MG TABLET PO SCH (09:17)
[2019-06-27] MEDS: carvediloL 12.5 MG TABLET PO SCH ×2 (09:17→16:39)
[2019-06-27] MEDS: INSULIN REGULAR 100 UNIT/ML SUBCUT SCH ×4 (09:17→21:45)
[2019-06-27 09:44] LABS: Calcium 8.1 MG/DL (8.5-10.1); Osmolality,Calculated 281.1 MOS/KG (273-304)
[2019-06-27 10:05] LABS: Basophils % 0.4 % (0.0-0.8); Eosinophils % 0.2 % (0.00-10.9); Hematocrit 30.4 VOL% (35.7-47.0); Immature Granulocytes % 0.2 %; Immature Granulocytes Absolute 0.01 #; Lymphocytes # 1.7 10*3/uL (1.4-4.0); Lymphocytes % 31.2 % (21.3-54.2); Mean Corpuscular HGB Conc 25.3 GM/DL (32-36); Monocytes % 5.4 % (1.7-12.7); NRBC # 0.02 10*3/uL; Neutrophils % 62.6 % (38.7-73.9); Platelet Count 159 T/CUMM (130-400); Red Blood Count 3.95 MC/CUMM (3.8-5.5); Red Cell Distribution Width 17.9 % (9.3-17.3); White Blood Count 5.5 T/CUMM (4-12)
[2019-06-27 10:08] LABS: Hemoglobin 7.7 GM/DL (12.0-16.0)
[2019-06-27 10:09] LABS: Hypochromasia 2+
[2019-06-27 10:10] LABS: Microcytosis 1+; Platelet Estimate Adequate
[2019-06-27] MEDS: THEOPHYLLINE ER (24 HR) 400 MG CAPSULE PO SCH (10:10)
[2019-06-27] MEDS: predniSONE 10 MG TABLET PO SCH (10:10)
[2019-06-27] MEDS: GABAPENTIN 300 MG CAPSULE PO SCH (12:30)
[2019-06-27] MEDS: PROMETHAZINE 25 MG TABLET PO PRN (16:51)
[2019-06-27] MEDS: ATORVASTATIN 80 MG TABLET PO SCH (21:44)
[2019-06-27] MEDS: ENOXAPARIN 40 MG/0.4 ML SYRINGE SUBCUT SCH (21:44)
[2019-06-28] MEDS: ALBUTEROL/IPRATROPIUM 3 ML NEB RESP TX SCH ×2 (07:41→14:26)
[2019-06-28 09:38] LABS: Calcium 7.8 MG/DL (8.5-10.1); Osmolality,Calculated 282.3 MOS/KG (273-304)
[2019-06-28 09:52] LABS: Basophils % 0.4 % (0.0-0.8); Eosinophils % 0.1 % (0.00-10.9); Hematocrit 29.9 VOL% (35.7-47.0); Hemoglobin 7.9 GM/DL (12.0-16.0); Immature Granulocytes % 0.4 %; Immature Granulocytes Absolute 0.03 #; Lymphocytes # 2.5 10*3/uL (1.4-4.0); Lymphocytes % 32.9 % (21.3-54.2); Mean Corpuscular HGB Conc 26.4 GM/DL (32-36); Mean Corpuscular Volume 75.5 FL (87-102); Monocytes % 5.3 % (1.7-12.7); Neutrophils % 60.9 % (38.7-73.9); Platelet Count 166 T/CUMM (130-400); Red Blood Count 3.96 MC/CUMM (3.8-5.5); Red Cell Distribution Width 18.2 % (9.3-17.3); White Blood Count 7.6 T/CUMM (4-12)
[2019-06-28] MEDS: INSULIN REGULAR 100 UNIT/ML SUBCUT SCH ×2 (10:04→12:54)
[2019-06-28 10:05] LABS: Platelet Estimate Normal
[2019-06-28] MEDS: THEOPHYLLINE ER (24 HR) 400 MG CAPSULE PO SCH (10:05)
[2019-06-28] MEDS: ASPIRIN EC 81 MG TABLET PO SCH (10:05)
[2019-06-28] MEDS: LISINOPRIL 10 MG TABLET PO SCH (10:05)
[2019-06-28] MEDS: PANTOPRAZOLE 40 MG TABLET PO SCH (10:05)
[2019-06-28 10:06] LABS: Anisocytosis 2+; Hypochromasia 1+; Polychromasia Slight
[2019-06-28] MEDS: SERTRALINE 100 MG TABLET PO SCH (10:06)
[2019-06-28] MEDS: amLODIPine 10 MG TABLET PO SCH (10:06)
[2019-06-28] MEDS: GABAPENTIN 300 MG CAPSULE PO SCH (10:06)
[2019-06-28] MEDS: carvediloL 12.5 MG TABLET PO SCH (10:07)
[2019-06-28] MEDS: PROMETHAZINE 25 MG TABLET PO PRN (10:07)
[2019-06-28] MEDS: FUROSEMIDE 40 MG/4 ML VIAL IV SCH (10:08)
[2019-06-28] MEDS: predniSONE 10 MG TABLET PO SCH (10:12)
[2019-06-28 12:32] VITALS: BP 123/66
[2019-06-28] MEDS ORDERED: INFLUENZA VIRUS VACCINE 0.5 ML SYRINGE IM ONE (13:52)
== END 2019-06-28 16:50 | disposition home or self-care (01) | DRG 194 ==
LOC: EDBD → EDUNIT# → N.EDINP 14:06 → N.ED 14:06 → SUATTDRO 17:48 → N.2W 19:11
PROVIDERS: ADMIT Emergency Medicine; ATTEND Hospitalist

== ENCOUNTER 2019-07-13 18:21 | Inpatient (IN) ==
[2019-07-13] MEDS ORDERED: FUROSEMIDE 40 MG/4 ML VIAL IV STA (18:43)
[2019-07-13] MEDS ORDERED: methylPREDNISolone SOD SUC 125 MG/2 ML VIAL IV STA (18:43)
[2019-07-13] MEDS ORDERED: ALBUTEROL NEB SOLN 5 MG/ML 20 ML/BOTTLE RESP TX SCH (19:00)
[2019-07-13 19:02] LABS: ABG Base Excess 9.3 MMOL/L (-2.5-2.5); ABG HCO3 33.1 MMOL/L (20-26); ABG Oxygen Saturation 99.6 % (95-100); Allen Test Positive
[2019-07-13 19:05] LABS: ABG PH 7.156 (7.35-7.45)
[2019-07-13 19:31] LABS: Alanine Aminotransferase 11 U/L (13-56); Albumin 3.4 G/DL (3.4-5.0); Alkaline Phosphatase 111 U/L (45-117); Aspartate Amino Transferase 15 U/L (0-37); Blood Urea Nitrogen 8 MG/DL (7-18); Calcium 8.2 MG/DL (8.5-10.1); Estimated Glom Filtration Rate 132 ML/MIN; Glucose 114 MG/DL (74-106); Osmolality,Calculated 275.5 MOS/KG (273-304); Total Protein 8.4 G/DL (6.4-8.3)
[2019-07-13] MEDS: TERBUTALINE 1 MG/1 ML VIAL SUBCUT SCH ×2 (19:33→20:02)
[2019-07-13 19:51] LABS: Troponin I 0.053 NG/ML (0.00-0.045)
[2019-07-13 19:58] LABS: Apearance,Urine CLEAR (Clear); Bacteria,Urine Occasional /HPF (Few); Bilirubin,Urine Negative (Negative); Blood, Urine Negative (Negative); Glucose,Urine (UA) Negative (Negative); Hyaline Casts,Urine 7 /LPF (0-3); Ketones,Urine Negative (Negative); Mucus,Urine Occasional /LPF (Occasional); Nitrite,Urine Negative (Negative); Protein,Urine 100 MG/DL; RBC,Urine 1 /HPF (0-4); Squamous Epithelial Cell,Urine Occasional /HPF (0-10); Urine Color Yellow (Yellow); Urine Specific Gravity 1.017 (1.001-1.035); Urine Urobilinogen < 2.0 EU/DL (0.2-1.0); WBC,Urine 1 /HPF (0-6)
[2019-07-13 20:11] LABS: Barbiturates Screen,Urine Negative (Negative); Benzodiazepines Screen,Urine Negative (Negative); Cannabinoid Screen,Urine Negative (Negative); Opiate Screen,Urine Negative (Negative); Phencyclidine Screen,Urine Negative (Negative)
[2019-07-13 20:21] LABS: INR 0.9; PT Patient Result 9.4 SECS (9.6-12.2); Partial Thromboplastin Time 21.7 SECS (20.8-36.0)
[2019-07-13] MEDS ORDERED: GLUCAGON 1 MG VIAL IM PRN (20:24)
[2019-07-13] MEDS ORDERED: ACETAMINOPHEN 325 MG TABLET PO PRN (20:24)
[2019-07-13] MEDS ORDERED: DEXTROSE 50% 25 GM/50 ML VIAL IV PRN (20:24)
[2019-07-13 22:15] LABS: Allen Test Positive; Pt O2 Delivery Device BIPAP
[2019-07-13] MEDS: ATORVASTATIN 80 MG TABLET PO SCH (22:43)
[2019-07-13 22:58] LABS: Basophils % 0.2 % (0.0-0.8); Hemoglobin 8.5 GM/DL (12.0-16.0); Immature Granulocytes % 0.6 %; Immature Granulocytes Absolute 0.05 #; Lymphocytes # 1.5 10*3/uL (1.4-4.0); Lymphocytes % 17.3 % (21.3-54.2); Mean Corpuscular Volume 78.9 FL (87-102); Monocytes % 5.4 % (1.7-12.7); Neutrophils % 76.5 % (38.7-73.9); Platelet Count 142 T/CUMM (130-400); Red Blood Count 4.31 MC/CUMM (3.8-5.5); Red Cell Distribution Width 18.1 % (9.3-17.3); White Blood Count 8.9 T/CUMM (4-12)
[2019-07-13 23:02] LABS: Basophils % 0.2 % (0.0-0.8); Eosinophils % 0.1 % (0.00-10.9); Hematocrit 32.8 VOL% (35.7-47.0); Hemoglobin 8.3 GM/DL (12.0-16.0); Immature Granulocytes % 0.4 %; Immature Granulocytes Absolute 0.04 #; Lymphocytes # 0.5 10*3/uL (1.4-4.0); Lymphocytes % 4.7 % (21.3-54.2); Mean Corpuscular HGB Conc 25.3 GM/DL (32-36); Monocytes % 1.2 % (1.7-12.7); NRBC # 0.02 10*3/uL; Neutrophils % 93.4 % (38.7-73.9); Platelet Count 169 T/CUMM (130-400); Red Blood Count 4.15 MC/CUMM (3.8-5.5); Red Cell Distribution Width 18.3 % (9.3-17.3); White Blood Count 11.3 T/CUMM (4-12)
[2019-07-13 23:09] LABS: ABG Base Excess 10.4 MMOL/L (-2.5-2.5); ABG HCO3 34.1 MMOL/L (20-26); ABG Oxygen Saturation 90.1 % (95-100); ABG PH 7.243 (7.35-7.45); ABG PO2 60.9 MM HG (80-95); ABG TCO2 38.6 MMOL/L (23-27)
[2019-07-13 23:12] LABS: ABG PCO2 94.6 MM HG (35-48)
[2019-07-13 23:42] LABS: Lymphocytes 5 % (20-55); Segmented Neutrophils 92 % (50-85); Total Cells Counted 100
[2019-07-13 23:43] LABS: Anisocytosis Slight; Hypochromasia 2+; Microcytosis 1+; Platelet Estimate Normal; Stomatocytes 1+
[2019-07-13 23:46] LABS: Polychromasia Few
[2019-07-13] MEDS: ALBUTEROL/IPRATROPIUM 3 ML NEB RESP TX SCH (23:50)
[2019-07-14] MEDS: carvediloL 12.5 MG TABLET PO SCH ×2 (00:23→08:08)
[2019-07-14] MEDS: TERBUTALINE 1 MG/1 ML VIAL SUBCUT SCH ×2 (00:23→00:24)
[2019-07-14] MEDS: INSULIN LISPRO 100 UNIT/ML SUBCUT SCH ×4 (00:37→17:26)
[2019-07-14] MEDS: hydrALAZINE 20 MG/1 ML VIAL IV PRN ×2 (01:37→09:08)
[2019-07-14 01:48] LABS: Osmolality,Calculated 275.8 MOS/KG (273-304)
[2019-07-14 01:54] LABS: Basophils % 0.3 % (0.0-0.8); Hematocrit 32.7 VOL% (35.7-47.0); Hemoglobin 8.3 GM/DL (12.0-16.0); Immature Granulocytes % 2.2 %; Immature Granulocytes Absolute 0.25 #; Lymphocytes # 0.4 10*3/uL (1.4-4.0); Lymphocytes % 3.5 % (21.3-54.2); Mean Corpuscular HGB Conc 25.4 GM/DL (32-36); Mean Corpuscular Volume 77.3 FL (87-102); Monocytes % 0.6 % (1.7-12.7); NRBC # 0.02 10*3/uL; Neutrophils % 93.4 % (38.7-73.9); Platelet Count 153 T/CUMM (130-400); Red Blood Count 4.23 MC/CUMM (3.8-5.5); Red Cell Distribution Width 18.3 % (9.3-17.3); White Blood Count 11.5 T/CUMM (4-12)
[2019-07-14 02:13] LABS: Band Neutrophils 2 % (0-10); Lymphocytes 4 % (20-55); Segmented Neutrophils 94 % (50-85); Total Cells Counted 100
[2019-07-14 02:14] LABS: Anisocytosis 1+; Hypochromasia 2+; Microcytosis 1+; Platelet Estimate Normal; Polychromasia Few; Stomatocytes 1+
[2019-07-14 02:16] LABS: Ovalocytes Slight
[2019-07-14] MEDS: ALBUTEROL/IPRATROPIUM 3 ML NEB RESP TX SCH ×6 (03:30→23:52)
[2019-07-14] MEDS ORDERED: PROMETHAZINE 25 MG/1 ML VIAL IM ONE (04:26)
[2019-07-14] MEDS: methylPREDNISolone SOD SUC 40 MG/1 ML VIAL IV SCH ×3 (04:38→20:48)
[2019-07-14 06:36] LABS: ABG HCO3 36.8 MMOL/L (20-26); ABG Oxygen Saturation 96.2 % (95-100); ABG PO2 80.4 MM HG (80-95); ABG TCO2 39.8 MMOL/L (23-27); Allen Test Positive; Pt O2 Delivery Device BIPAP
[2019-07-14 06:39] LABS: ABG PCO2 86.1 MM HG (35-48)
[2019-07-14 07:49] LABS: Troponin I 0.154 NG/ML (0.00-0.045)
[2019-07-14] MEDS: FUROSEMIDE 40 MG/4 ML VIAL IV SCH ×2 (08:08→16:50)
[2019-07-14] MEDS: ASPIRIN EC 81 MG TABLET PO SCH (08:08)
[2019-07-14] MEDS: PANTOPRAZOLE 40 MG TABLET PO SCH (08:08)
[2019-07-14] MEDS: CLOPIDOGREL 75 MG TABLET PO SCH (08:08)
[2019-07-14] MEDS: LISINOPRIL 10 MG TABLET PO SCH (08:08)
[2019-07-14] MEDS: THEOPHYLLINE ER (24 HR) 400 MG CAPSULE PO SCH (08:08)
[2019-07-14] MEDS: amLODIPine 5 MG TABLET PO SCH (11:45)
[2019-07-14 13:31] LABS: Troponin I 0.122 NG/ML (0.00-0.045)
[2019-07-14] MEDS: carvediloL 25 MG TABLET PO SCH (16:50)
[2019-07-14] MEDS: PROMETHAZINE INJ 12.5 MG in SODIUM CHLORIDE 0.9% 50 ML IV PRN (17:26)
[2019-07-14] MEDS: ENOXAPARIN 40 MG/0.4 ML SYRINGE SUBCUT SCH (20:47)
[2019-07-14] MEDS: ATORVASTATIN 80 MG TABLET PO SCH (20:47)
[2019-07-14] MEDS: LEVOFLOXACIN 750 MG TABLET PO SCH (20:47)
[2019-07-15] MEDS: INSULIN LISPRO 100 UNIT/ML SUBCUT SCH ×5 (00:22→21:10)
[2019-07-15] MEDS: ALBUTEROL/IPRATROPIUM 3 ML NEB RESP TX SCH ×5 (03:25→20:29)
[2019-07-15 04:06] LABS: Troponin I 0.126 NG/ML (0.00-0.045)
[2019-07-15 04:13] LABS: ABG Base Excess 14.9 MMOL/L (-2.5-2.5); ABG HCO3 43.1 MMOL/L (20-26); ABG Oxygen Saturation 96.7 % (95-100); ABG PH 7.334 (7.35-7.45); ABG PO2 89.6 MM HG (80-95); ABG TCO2 45.6 MMOL/L (23-27); Allen Test Positive; Pt O2 Delivery Device BIPAP
[2019-07-15 04:15] LABS: ABG PCO2 82.8 MM HG (35-48)
[2019-07-15] MEDS: methylPREDNISolone SOD SUC 40 MG/1 ML VIAL IV SCH ×3 (05:40→21:05)
[2019-07-15 07:16] LABS: Calcium 8.3 MG/DL (8.5-10.1); Osmolality,Calculated 281.8 MOS/KG (273-304)
[2019-07-15 07:31] LABS: Basophils % 0.1 % (0.0-0.8); Eosinophils % 0.1 % (0.00-10.9); Hematocrit 31.6 VOL% (35.7-47.0); Hemoglobin 8.3 GM/DL (12.0-16.0); Immature Granulocytes % 0.5 %; Immature Granulocytes Absolute 0.07 #; Lymphocytes # 0.9 10*3/uL (1.4-4.0); Lymphocytes % 6.6 % (21.3-54.2); Mean Corpuscular HGB Conc 26.3 GM/DL (32-36); Mean Corpuscular Volume 75.2 FL (87-102); Monocytes % 2.3 % (1.7-12.7); Neutrophils % 90.4 % (38.7-73.9); Platelet Count 216 T/CUMM (130-400); Red Cell Distribution Width 18.6 % (9.3-17.3); White Blood Count 14.2 T/CUMM (4-12)
[2019-07-15 07:33] LABS: Anisocytosis 2+; Platelet Estimate Normal
[2019-07-15] MEDS: hydrALAZINE 20 MG/1 ML VIAL IV PRN (08:22)
[2019-07-15] MEDS: LISINOPRIL 10 MG TABLET PO SCH (08:23)
[2019-07-15] MEDS: carvediloL 25 MG TABLET PO SCH ×2 (08:23→16:29)
[2019-07-15] MEDS: ASPIRIN EC 81 MG TABLET PO SCH (08:23)
[2019-07-15] MEDS: FUROSEMIDE 40 MG/4 ML VIAL IV SCH ×2 (08:23→16:28)
[2019-07-15] MEDS: PANTOPRAZOLE 40 MG TABLET PO SCH (08:24)
[2019-07-15] MEDS: THEOPHYLLINE ER (24 HR) 400 MG CAPSULE PO SCH (08:24)
[2019-07-15] MEDS: CLOPIDOGREL 75 MG TABLET PO SCH (08:24)
[2019-07-15] MEDS: amLODIPine 5 MG TABLET PO SCH (08:24)
[2019-07-15] MEDS: SERTRALINE 100 MG TABLET PO SCH (08:35)
[2019-07-15] MEDS ORDERED: INSULIN LISPRO 100 UNIT/ML ONE (11:16)
[2019-07-15] MEDS: amLODIPine 10 MG TABLET PO SCH (14:55)
[2019-07-15] MEDS: PROMETHAZINE INJ 12.5 MG in SODIUM CHLORIDE 0.9% 50 ML IV PRN (15:47)
[2019-07-15] MEDS: ENOXAPARIN 40 MG/0.4 ML SYRINGE SUBCUT SCH (21:05)
[2019-07-15] MEDS: ATORVASTATIN 80 MG TABLET PO SCH (21:05)
[2019-07-15] MEDS: BUPRENORPHINE NALOXONE SL SCH (21:15)
[2019-07-15] MEDS: LEVOFLOXACIN 750 MG TABLET PO SCH (21:24)
[2019-07-16] MEDS: methylPREDNISolone SOD SUC 40 MG/1 ML VIAL IV SCH ×2 (04:50→14:07)
[2019-07-16] MEDS: ALBUTEROL/IPRATROPIUM 3 ML NEB RESP TX SCH ×7 (04:56→23:30)
[2019-07-16 06:50] LABS: Hematocrit 31.2 VOL% (35.7-47.0); Immature Granulocytes % 0.5 %; Immature Granulocytes Absolute 0.06 #; Lymphocytes # 0.8 10*3/uL (1.4-4.0); Lymphocytes % 6.6 % (21.3-54.2); Mean Corpuscular HGB Conc 26.6 GM/DL (32-36); Mean Corpuscular Volume 75.2 FL (87-102); Monocytes % 1.2 % (1.7-12.7); NRBC # 0.02 10*3/uL; Neutrophils % 91.7 % (38.7-73.9); Platelet Count 192 T/CUMM (130-400); Red Blood Count 4.15 MC/CUMM (3.8-5.5); Red Cell Distribution Width 18.4 % (9.3-17.3); White Blood Count 11.7 T/CUMM (4-12)
[2019-07-16 06:51] LABS: Calcium 8.1 MG/DL (8.5-10.1); Osmolality,Calculated 288.7 MOS/KG (273-304)
[2019-07-16 06:53] LABS: Hemoglobin 8.3 GM/DL (12.0-16.0)
[2019-07-16 06:59] LABS: Hypochromasia 1+; Lymphocytes 7 % (20-55); Platelet Estimate Adequate; Segmented Neutrophils 93 % (50-85); Total Cells Counted 100
[2019-07-16] MEDS: CLOPIDOGREL 75 MG TABLET PO SCH (08:34)
[2019-07-16] MEDS: FUROSEMIDE 40 MG/4 ML VIAL IV SCH ×2 (08:34→15:41)
[2019-07-16] MEDS: ASPIRIN EC 81 MG TABLET PO SCH (08:34)
[2019-07-16] MEDS: POTASSIUM CHLORIDE 10 MEQ TABLET PO SCH (08:34)
[2019-07-16] MEDS: PANTOPRAZOLE 40 MG TABLET PO SCH (08:34)
[2019-07-16] MEDS: SERTRALINE 100 MG TABLET PO SCH (08:35)
[2019-07-16] MEDS: amLODIPine 10 MG TABLET PO SCH (08:35)
[2019-07-16] MEDS: THEOPHYLLINE ER (24 HR) 400 MG CAPSULE PO SCH (08:35)
[2019-07-16] MEDS: carvediloL 25 MG TABLET PO SCH ×2 (08:35→17:22)
[2019-07-16] MEDS: PROMETHAZINE INJ 12.5 MG in SODIUM CHLORIDE 0.9% 50 ML IV PRN ×2 (08:36→15:42)
[2019-07-16] MEDS: BUPRENORPHINE NALOXONE SL SCH ×2 (08:36→21:01)
[2019-07-16] MEDS: INSULIN LISPRO 100 UNIT/ML SUBCUT SCH ×4 (09:24→21:00)
[2019-07-16] MEDS: ATORVASTATIN 80 MG TABLET PO SCH (21:00)
[2019-07-16] MEDS: LEVOFLOXACIN 750 MG TABLET PO SCH (21:00)
[2019-07-16] MEDS: FLUTICASONE 50 MCG NASAL SPRAY 16 GM BOTTLE BOTH NARES SCH (21:00)
[2019-07-16] MEDS: ENOXAPARIN 40 MG/0.4 ML SYRINGE SUBCUT SCH (21:01)
[2019-07-17] MEDS: methylPREDNISolone SOD SUC 40 MG/1 ML VIAL IV SCH ×3 (00:03→20:31)
[2019-07-17] MEDS: PROMETHAZINE INJ 12.5 MG in SODIUM CHLORIDE 0.9% 50 ML IV PRN ×3 (00:31→19:59)
[2019-07-17] MEDS: ALBUTEROL/IPRATROPIUM 3 ML NEB RESP TX SCH ×6 (03:45→23:59)
[2019-07-17 05:05] LABS: Basophils % 0.1 % (0.0-0.8); Hematocrit 33.1 VOL% (35.7-47.0); Hemoglobin 8.9 GM/DL (12.0-16.0); Immature Granulocytes % 0.7 %; Immature Granulocytes Absolute 0.07 #; Lymphocytes # 0.8 10*3/uL (1.4-4.0); Lymphocytes % 7.8 % (21.3-54.2); Mean Corpuscular HGB Conc 26.9 GM/DL (32-36); Mean Corpuscular Volume 75.2 FL (87-102); Monocytes % 3.1 % (1.7-12.7); Neutrophils % 88.3 % (38.7-73.9); Platelet Count 185 T/CUMM (130-400); Red Cell Distribution Width 18.3 % (9.3-17.3); White Blood Count 10.6 T/CUMM (4-12)
[2019-07-17 05:07] LABS: Calcium 8.2 MG/DL (8.5-10.1); Osmolality,Calculated 291.5 MOS/KG (273-304)
[2019-07-17 05:15] LABS: % Iron Saturation 10.5 % (18-50); Ferritin 16.2 ng/ml (8-252)
[2019-07-17 05:22] LABS: Folate 5.8 NG/ML (5.4-24.0)
[2019-07-17] MEDS: FUROSEMIDE 40 MG/4 ML VIAL IV SCH ×2 (08:51→16:18)
[2019-07-17] MEDS: INSULIN LISPRO 100 UNIT/ML SUBCUT SCH ×4 (08:56→21:04)
[2019-07-17] MEDS: carvediloL 25 MG TABLET PO SCH ×2 (08:58→17:05)
[2019-07-17] MEDS: POTASSIUM CHLORIDE 10 MEQ TABLET PO SCH (08:58)
[2019-07-17] MEDS: ASPIRIN EC 81 MG TABLET PO SCH (08:58)
[2019-07-17] MEDS: PANTOPRAZOLE 40 MG TABLET PO SCH (08:59)
[2019-07-17] MEDS: SERTRALINE 100 MG TABLET PO SCH (08:59)
[2019-07-17] MEDS: THEOPHYLLINE ER (24 HR) 400 MG CAPSULE PO SCH (08:59)
[2019-07-17] MEDS: CLOPIDOGREL 75 MG TABLET PO SCH (08:59)
[2019-07-17] MEDS: FLUTICASONE 50 MCG NASAL SPRAY 16 GM BOTTLE BOTH NARES SCH ×2 (09:04→21:04)
[2019-07-17] MEDS: amLODIPine 10 MG TABLET PO SCH (09:04)
[2019-07-17] MEDS: BUPRENORPHINE NALOXONE SL SCH ×2 (09:05→22:44)
[2019-07-17] MEDS: CYANOCOBALAMIN 1000 MCG/1 ML VIAL IM SCH (10:35)
[2019-07-17] MEDS: ENOXAPARIN 40 MG/0.4 ML SYRINGE SUBCUT SCH (20:29)
[2019-07-17] MEDS: ATORVASTATIN 80 MG TABLET PO SCH (20:29)
[2019-07-17] MEDS: LEVOFLOXACIN 750 MG TABLET PO SCH (20:29)
[2019-07-18] MEDS: ALBUTEROL/IPRATROPIUM 3 ML NEB RESP TX SCH ×3 (03:06→10:58)
[2019-07-18 06:56] LABS: Calcium 8.3 MG/DL (8.5-10.1); Osmolality,Calculated 282.8 MOS/KG (273-304)
[2019-07-18 07:15] LABS: Basophils % 0.1 % (0.0-0.8); Hematocrit 32.3 VOL% (35.7-47.0); Hemoglobin 8.6 GM/DL (12.0-16.0); Immature Granulocytes % 0.6 %; Immature Granulocytes Absolute 0.06 #; Lymphocytes # 1.6 10*3/uL (1.4-4.0); Lymphocytes % 14.7 % (21.3-54.2); Mean Corpuscular HGB Conc 26.6 GM/DL (32-36); Mean Corpuscular Volume 74.4 FL (87-102); Monocytes % 6.4 % (1.7-12.7); Neutrophils % 78.2 % (38.7-73.9); Platelet Count 181 T/CUMM (130-400); Red Blood Count 4.34 MC/CUMM (3.8-5.5); Red Cell Distribution Width 18.6 % (9.3-17.3); White Blood Count 10.8 T/CUMM (4-12)
[2019-07-18 07:16] LABS: Hypochromasia 1+; Ovalocytes Slight; Platelet Estimate Adequate
[2019-07-18] MEDS ORDERED: ERGOCALCIFEROL 50,000 UNIT CAPSULE PO SCH (09:30)
[2019-07-18] MEDS: methylPREDNISolone SOD SUC 40 MG/1 ML VIAL IV SCH (10:10)
[2019-07-18] MEDS: CYANOCOBALAMIN 1000 MCG/1 ML VIAL IM SCH (10:10)
[2019-07-18] MEDS: FUROSEMIDE 40 MG/4 ML VIAL IV SCH ×2 (10:11→17:02)
[2019-07-18] MEDS: INSULIN LISPRO 100 UNIT/ML SUBCUT SCH ×3 (10:12→17:03)
[2019-07-18] MEDS: amLODIPine 10 MG TABLET PO SCH (10:13)
[2019-07-18] MEDS: SERTRALINE 100 MG TABLET PO SCH (10:13)
[2019-07-18] MEDS: ASPIRIN EC 81 MG TABLET PO SCH (10:13)
[2019-07-18] MEDS: CLOPIDOGREL 75 MG TABLET PO SCH (10:13)
[2019-07-18] MEDS: carvediloL 25 MG TABLET PO SCH (10:13)
[2019-07-18] MEDS: PANTOPRAZOLE 40 MG TABLET PO SCH (10:13)
[2019-07-18] MEDS: THEOPHYLLINE ER (24 HR) 400 MG CAPSULE PO SCH (10:13)
[2019-07-18] MEDS: POTASSIUM CHLORIDE 10 MEQ TABLET PO SCH (10:13)
[2019-07-18] MEDS: BUPRENORPHINE NALOXONE SL SCH (10:14)
[2019-07-18] MEDS: FLUTICASONE 50 MCG NASAL SPRAY 16 GM BOTTLE BOTH NARES SCH (10:14)
[2019-07-18] MEDS: PROMETHAZINE INJ 12.5 MG in SODIUM CHLORIDE 0.9% 50 ML IV PRN (13:42)
[2019-07-18 16:15] VITALS: BP 150/92
== END 2019-07-18 17:40 | disposition home or self-care (01) | DRG 133 ==
LOC: EDUNIT# → N.ED 18:21 → N.EDINP 20:24 → SUATTDRO 20:24 → N.ICU 21:10 → N.5E 07-15 12:16
PROVIDERS: ADMIT Family Medicine; ATTEND Hospitalist

== ENCOUNTER 2019-08-31 12:55 | Inpatient (IN) ==
[2019-08-31] MEDS ORDERED: methylPREDNISolone SOD SUC 125 MG/2 ML VIAL IV STA (13:19)
[2019-08-31] MEDS ORDERED: AZITHROMYCIN INJ 500 MG in SODIUM CHLORIDE 0.9% 250 ML IV STA (13:19)
[2019-08-31] MEDS ORDERED: cefTRIAXone 1,000 MG in SODIUM CHLORIDE 0.9% 100 ML IV STA (13:19)
[2019-08-31] MEDS ORDERED: FUROSEMIDE 40 MG/4 ML VIAL IV STA (13:23)
[2019-08-31] MEDS ORDERED: ALBUTEROL 2.5 MG/3 ML NEB RESP TX SCH (13:30)
[2019-08-31 13:53] LABS: ABG Base Excess 11.7 MMOL/L (-2.5-2.5); ABG HCO3 35.4 MMOL/L (20-26); ABG Oxygen Saturation 93.1 % (95-100); ABG PO2 75.9 MM HG (80-95); ABG TCO2 41.4 MMOL/L (23-27); Allen Test Positive
[2019-08-31 13:56] LABS: ABG PH 7.193 (7.35-7.45)
[2019-08-31 14:27] LABS: INR 0.9; Partial Thromboplastin Time 25.7 SECS (20.8-36.0)
[2019-08-31 14:29] LABS: Alanine Aminotransferase < 9 U/L (13-56); Albumin 3.4 G/DL (3.4-5.0); Alkaline Phosphatase 116 U/L (45-117); Aspartate Amino Transferase 12 U/L (0-37); Blood Urea Nitrogen 6 MG/DL (7-18); Estimated Glom Filtration Rate 150 ML/MIN; Glucose 104 MG/DL (74-106); Osmolality,Calculated 248.5 MOS/KG (273-304); Total Protein 8.1 G/DL (6.4-8.3); Troponin I < 0.015 NG/ML (0.00-0.045)
[2019-08-31 14:37] LABS: ABG HCO3 42.1 MMOL/L (20-26); ABG Oxygen Saturation 80.7 % (95-100); ABG PH 7.264 (7.35-7.45); ABG PO2 49.9 MM HG (80-95); ABG TCO2 45.1 MMOL/L (23-27)
[2019-08-31 14:39] LABS: ABG PCO2 95.2 MM HG (35-48)
[2019-08-31 14:40] LABS: Basophils % 0.4 % (0.0-0.8); Hematocrit 28.9 VOL% (35.7-47.0); Hemoglobin 7.4 GM/DL (12.0-16.0); Immature Granulocytes % 5.9 %; Immature Granulocytes Absolute 0.66 #; Lymphocytes % 9.2 % (21.3-54.2); Mean Corpuscular HGB Conc 25.6 GM/DL (32-36); Mean Corpuscular Volume 75.3 FL (87-102); Monocytes % 4.2 % (1.7-12.7); NRBC # 0.03 10*3/uL; Neutrophils % 80.3 % (38.7-73.9); Platelet Count 147 T/CUMM (130-400); Red Blood Count 3.84 MC/CUMM (3.8-5.5); Red Cell Distribution Width 18.5 % (9.3-17.3); White Blood Count 11.3 T/CUMM (4-12)
[2019-08-31 14:55] LABS: Anisocytosis 3+; Band Neutrophils 1 % (0-10); Eosinophils 1 % (0-10); Hypochromasia 1+; Lymphocytes 15 % (20-55); Microcytosis 1+; Poikilocytosis 1+; Segmented Neutrophils 81 % (50-85); Total Cells Counted 100
[2019-08-31 14:56] LABS: Stomatocytes 1+
[2019-08-31] MEDS ORDERED: ETOMIDATE 20 MG/10 ML VIAL IV ONE (15:03)
[2019-08-31] MEDS ORDERED: ROCURONIUM 100 MG/10 ML VIAL IV ONE (15:03)
[2019-08-31] MEDS ORDERED: VECURONIUM 10 MG VIAL IV ONE (15:32)
[2019-08-31] MEDS ORDERED: ALBUTEROL 2.5 MG/3 ML NEB RESP TX PRN (15:57)
[2019-08-31] MEDS ORDERED: ENOXAPARIN 30 MG/0.3 ML SYRINGE SUBCUT SCH (16:00)
[2019-08-31 16:02] LABS: ABG HCO3 40.9 MMOL/L (20-26); ABG Oxygen Saturation 99.4 % (95-100); ABG PCO2 61.1 MM HG (35-48); ABG PH 7.444 (7.35-7.45); ABG PO2 227.3 MM HG (80-95); ABG TCO2 42.8 MMOL/L (23-27)
[2019-08-31] MEDS ORDERED: FUROSEMIDE 40 MG/4 ML VIAL IM STA (16:06)
[2019-08-31 16:31] LABS: Apearance,Urine CLEAR (Clear); Bacteria,Urine Occasional /HPF (Few); Bilirubin,Urine Negative (Negative); Blood, Urine Negative (Negative); Glucose,Urine (UA) Negative (Negative); Ketones,Urine Negative (Negative); Mucus,Urine Occasional /LPF (Occasional); Nitrite,Urine Negative (Negative); Protein,Urine 30 MG/DL; Squamous Epithelial Cell,Urine Occasional /HPF (0-10); Urine Color Colorless (Yellow); Urine Specific Gravity 1.005 (1.001-1.035); Urine Urobilinogen < 2.0 EU/DL (0.2-1.0)
[2019-08-31] MEDS ORDERED: hydrALAZINE 20 MG/1 ML VIAL IV PRN (16:42)
[2019-08-31 16:46] LABS: Barbiturates Screen,Urine Negative (Negative); Benzodiazepines Screen,Urine Negative (Negative); Cannabinoid Screen,Urine Negative (Negative); Opiate Screen,Urine Negative (Negative); Phencyclidine Screen,Urine Negative (Negative)
[2019-08-31] MEDS: FAMOTIDINE 20 MG/2 ML VIAL IV SCH (17:50)
[2019-08-31] MEDS ORDERED: FUROSEMIDE 40 MG/4 ML VIAL IV ONE (17:54)
[2019-08-31] MEDS ORDERED: INFLUENZA VIRUS VACCINE 0.5 ML SYRINGE IM ONE (18:27)
[2019-09-01 03:24] LABS: Allen Test Positive; Pt O2 Delivery Device Ventilator
[2019-09-01 03:25] LABS: ABG Base Excess 19.4 MMOL/L (-2.5-2.5); ABG HCO3 43.6 MMOL/L (20-26); ABG Oxygen Saturation 96.2 % (95-100); ABG PCO2 64.1 MM HG (35-48); ABG PH 7.464 (7.35-7.45); ABG PO2 73.4 MM HG (80-95); ABG TCO2 43.4 MMOL/L (23-27)
[2019-09-01 03:55] LABS: Alanine Aminotransferase < 9 U/L (13-56); Albumin 2.9 G/DL (3.4-5.0); Alkaline Phosphatase 103 U/L (45-117); Aspartate Amino Transferase 11 U/L (0-37); Blood Urea Nitrogen 9 MG/DL (7-18); Calcium 8.2 MG/DL (8.5-10.1); Estimated Glom Filtration Rate 115 ML/MIN; Glucose 107 MG/DL (74-106); Osmolality,Calculated 260.7 MOS/KG (273-304); Total Protein 7.4 G/DL (6.4-8.3)
[2019-09-01 04:05] LABS: Basophils % 0.2 % (0.0-0.8); Hematocrit 24.7 VOL% (35.7-47.0); Immature Granulocytes % 2.2 %; Immature Granulocytes Absolute 0.24 #; Lymphocytes # 1.1 10*3/uL (1.4-4.0); Lymphocytes % 9.9 % (21.3-54.2); Mean Corpuscular HGB Conc 27.9 GM/DL (32-36); Mean Corpuscular Volume 72.2 FL (87-102); Monocytes % 2.8 % (1.7-12.7); NRBC # 0.03 10*3/uL; Neutrophils % 84.9 % (38.7-73.9); Red Blood Count 3.42 MC/CUMM (3.8-5.5); Red Cell Distribution Width 18.6 % (9.3-17.3); White Blood Count 11.2 T/CUMM (4-12)
[2019-09-01 04:08] LABS: Hemoglobin 6.9 GM/DL (12.0-16.0)
[2019-09-01 04:09] LABS: Platelet Count 155 T/CUMM (130-400)
[2019-09-01] MEDS: FAMOTIDINE 20 MG/2 ML VIAL IV SCH ×2 (04:40→15:45)
[2019-09-01 05:14] LABS: Hypochromasia 2+; Platelet Estimate Adequate
[2019-09-01] MEDS ORDERED: MAGNESIUM SULF RIDER 4 GM in PREMIX 1 EACH IV PRN (05:46)
[2019-09-01] MEDS: MAGNESIUM SULF RIDER 2 GM in PREMIX 1 EACH IV PRN ×2 (05:56→07:59)
[2019-09-01] MEDS: FUROSEMIDE 40 MG/4 ML VIAL IV SCH ×2 (07:56→15:45)
[2019-09-01] MEDS: cefTRIAXone 1,000 MG in SYRINGE 1 EACH IV SCH (12:23)
[2019-09-01] MEDS: AZITHROMYCIN INJ 250 MG in SODIUM CHLORIDE 0.9% 150 ML IV SCH (12:27)
[2019-09-01] MEDS: ENOXAPARIN 40 MG/0.4 ML SYRINGE SUBCUT SCH (15:45)
[2019-09-02 03:08] LABS: ABG Base Excess 19.5 MMOL/L (-2.5-2.5); ABG HCO3 43.7 MMOL/L (20-26); ABG Oxygen Saturation 93.4 % (95-100); ABG PCO2 50.1 MM HG (35-48); ABG PH 7.557 (7.35-7.45); ABG PO2 61.4 MM HG (80-95); ABG TCO2 41.7 MMOL/L (23-27); Allen Test Positive; Pt O2 Delivery Device Ventilator
[2019-09-02] MEDS: FAMOTIDINE 20 MG/2 ML VIAL IV SCH ×2 (03:53→15:50)
[2019-09-02 06:07] LABS: Basophils % 0.3 % (0.0-0.8); Eosinophils % 0.1 % (0.00-10.9); Hemoglobin 7.3 GM/DL (12.0-16.0); Immature Granulocytes % 1.5 %; Immature Granulocytes Absolute 0.13 #; Lymphocytes # 1.6 10*3/uL (1.4-4.0); Lymphocytes % 18.2 % (21.3-54.2); Monocytes % 6.8 % (1.7-12.7); Neutrophils % 73.1 % (38.7-73.9); Platelet Count 157 T/CUMM (130-400); White Blood Count 8.8 T/CUMM (4-12)
[2019-09-02 06:10] LABS: Hypochromasia 2+; Platelet Estimate Adequate
[2019-09-02 07:04] LABS: Albumin 2.7 G/DL (3.4-5.0); Bilirubin,Total 0.6 MG/DL (0.2-1.0); Calcium 8.3 MG/DL (8.5-10.1); Osmolality,Calculated 264.4 MOS/KG (273-304); Total Protein 7.2 G/DL (6.4-8.3)
[2019-09-02] MEDS: POTASSIUM CHLORIDE 20 MEQ/15 ML UDCUP PER TUBE SCH ×3 (09:00→20:18)
[2019-09-02] MEDS: FUROSEMIDE 40 MG/4 ML VIAL IV SCH ×2 (09:00→15:48)
[2019-09-02] MEDS: methylPREDNISolone SOD SUC 40 MG/1 ML VIAL IV SCH ×2 (09:09→20:15)
[2019-09-02] MEDS: POTASSIUM CHLORIDE 10 MEQ TABLET PO SCH ×2 (12:20→20:14)
[2019-09-02] MEDS: CLOPIDOGREL 75 MG TABLET PO SCH (12:21)
[2019-09-02] MEDS: amLODIPine 10 MG TABLET PO SCH (12:21)
[2019-09-02] MEDS: THEOPHYLLINE ER (24 HR) 400 MG CAPSULE PO SCH ×2 (12:21→15:10)
[2019-09-02] MEDS: ASPIRIN EC 81 MG TABLET PO SCH (12:21)
[2019-09-02] MEDS: cefTRIAXone 1,000 MG in SYRINGE 1 EACH IV SCH (12:27)
[2019-09-02] MEDS: ALBUTEROL/IPRATROPIUM 3 ML NEB RESP TX SCH ×2 (13:28→20:45)
[2019-09-02] MEDS: FLUTICASONE 50 MCG NASAL SPRAY 16 GM BOTTLE BOTH NARES SCH (14:08)
[2019-09-02] MEDS: AZITHROMYCIN INJ 250 MG in SODIUM CHLORIDE 0.9% 150 ML IV SCH (14:28)
[2019-09-02] MEDS: fentaNYL INJ 1,250 MCG in SODIUM CHLORIDE 0.9% 225 ML IV PRN (14:35)
[2019-09-02] MEDS: ENOXAPARIN 40 MG/0.4 ML SYRINGE SUBCUT SCH (15:53)
[2019-09-02] MEDS: carvediloL 25 MG TABLET PO SCH (18:13)
[2019-09-02] MEDS: ATORVASTATIN 80 MG TABLET PO SCH (20:14)
[2019-09-03] MEDS: ALBUTEROL/IPRATROPIUM 3 ML NEB RESP TX SCH ×4 (00:21→20:33)
[2019-09-03 03:54] LABS: ABG Base Excess 12.6 MMOL/L (-2.5-2.5); ABG HCO3 36.4 MMOL/L (20-26); ABG Oxygen Saturation 97.8 % (95-100); ABG PCO2 45.5 MM HG (35-48); ABG PH 7.519 (7.35-7.45); ABG PO2 89.1 MM HG (80-95); ABG TCO2 34.3 MMOL/L (23-27)
[2019-09-03 04:55] LABS: Alanine Aminotransferase < 9 U/L (13-56); Albumin 3.2 G/DL (3.4-5.0); Alkaline Phosphatase 105 U/L (45-117); Aspartate Amino Transferase 13 U/L (0-37); Blood Urea Nitrogen 17 MG/DL (7-18); Calcium 8.7 MG/DL (8.5-10.1); Estimated Glom Filtration Rate 80 ML/MIN; Glucose 137 MG/DL (74-106); Osmolality,Calculated 269.4 MOS/KG (273-304); Total Protein 8.4 G/DL (6.4-8.3)
[2019-09-03 05:03] LABS: Basophils % 0.1 % (0.0-0.8); Hemoglobin 8.1 GM/DL (12.0-16.0); Immature Granulocytes % 0.9 %; Immature Granulocytes Absolute 0.09 #; Lymphocytes # 0.9 10*3/uL (1.4-4.0); Lymphocytes % 8.8 % (21.3-54.2); Mean Corpuscular Volume 71.4 FL (87-102); Monocytes % 2.2 % (1.7-12.7); Platelet Count 177 T/CUMM (130-400); Red Cell Distribution Width 19.5 % (9.3-17.3); White Blood Count 10.4 T/CUMM (4-12)
[2019-09-03 05:17] LABS: Anisocytosis 1+; Hypochromasia 2+; Microcytosis 1+; Polychromasia Slight; Tear Drop Cells Slight
[2019-09-03 05:18] LABS: Ovalocytes Slight; Platelet Estimate Adequate; Target Cells Slight
[2019-09-03] MEDS: FAMOTIDINE 20 MG/2 ML VIAL IV SCH ×2 (05:39→15:41)
[2019-09-03] MEDS: carvediloL 25 MG TABLET PO SCH ×2 (08:24→17:06)
[2019-09-03] MEDS: FUROSEMIDE 40 MG/4 ML VIAL IV SCH ×2 (08:24→15:40)
[2019-09-03] MEDS: fentaNYL INJ 1,250 MCG in SODIUM CHLORIDE 0.9% 225 ML IV PRN ×2 (08:41→19:27)
[2019-09-03] MEDS: ASPIRIN EC 81 MG TABLET PO SCH (08:51)
[2019-09-03] MEDS: CLOPIDOGREL 75 MG TABLET PO SCH (08:51)
[2019-09-03] MEDS: POTASSIUM CHLORIDE 10 MEQ TABLET PO SCH ×2 (08:51→20:18)
[2019-09-03] MEDS: amLODIPine 10 MG TABLET PO SCH (08:51)
[2019-09-03] MEDS: MULTIVITAMIN LIQUID (CENTRUM) 60 ML BOTTLE PO SCH (08:53)
[2019-09-03] MEDS: methylPREDNISolone SOD SUC 40 MG/1 ML VIAL IV SCH ×2 (08:58→20:19)
[2019-09-03] MEDS: cefTRIAXone 1,000 MG in SYRINGE 1 EACH IV SCH (12:15)
[2019-09-03] MEDS: ERGOCALCIFEROL 50,000 UNIT CAPSULE PO SCH (12:23)
[2019-09-03] MEDS: AZITHROMYCIN INJ 250 MG in SODIUM CHLORIDE 0.9% 150 ML IV SCH (12:47)
[2019-09-03] MEDS: PROMETHAZINE 25 MG/1 ML VIAL IM PRN (14:48)
[2019-09-03] MEDS: ENOXAPARIN 40 MG/0.4 ML SYRINGE SUBCUT SCH (15:40)
[2019-09-03] MEDS: ATORVASTATIN 80 MG TABLET PO SCH (20:18)
[2019-09-04] MEDS: ALBUTEROL/IPRATROPIUM 3 ML NEB RESP TX SCH ×4 (00:05→20:03)
[2019-09-04] MEDS: FAMOTIDINE 20 MG/2 ML VIAL IV SCH ×2 (03:08→16:35)
[2019-09-04 03:38] LABS: ABG Base Excess 11.2 MMOL/L (-2.5-2.5); ABG Oxygen Saturation 98.5 % (95-100); ABG PCO2 56.7 MM HG (35-48); ABG PH 7.427 (7.35-7.45); ABG TCO2 34.7 MMOL/L (23-27); Allen Test Positive; Pt O2 Delivery Device Ventilator
[2019-09-04 06:13] LABS: Calcium 8.1 MG/DL (8.5-10.1); Osmolality,Calculated 275.1 MOS/KG (273-304)
[2019-09-04] MEDS: fentaNYL INJ 1,250 MCG in SODIUM CHLORIDE 0.9% 225 ML IV PRN (06:19)
[2019-09-04 06:37] LABS: Basophils % 0.1 % (0.0-0.8); Eosinophils % 0.1 % (0.00-10.9); Hematocrit 29.8 VOL% (35.7-47.0); Immature Granulocytes % 0.5 %; Immature Granulocytes Absolute 0.05 #; Lymphocytes # 1.6 10*3/uL (1.4-4.0); Lymphocytes % 16.7 % (21.3-54.2); Mean Corpuscular HGB Conc 26.8 GM/DL (32-36); Mean Corpuscular Volume 71.8 FL (87-102); Monocytes % 4.4 % (1.7-12.7); NRBC # 0.03 10*3/uL; Neutrophils % 78.2 % (38.7-73.9); Platelet Count 192 T/CUMM (130-400); Red Blood Count 4.15 MC/CUMM (3.8-5.5); Red Cell Distribution Width 20.1 % (9.3-17.3); White Blood Count 9.4 T/CUMM (4-12)
[2019-09-04 06:45] LABS: Anisocytosis 1+; Hypochromasia 2+; Microcytosis 1+
[2019-09-04 06:46] LABS: Tear Drop Cells Slight
[2019-09-04 06:47] LABS: Platelet Estimate Adequate
[2019-09-04] MEDS: FUROSEMIDE 40 MG/4 ML VIAL IV SCH ×2 (08:35→16:35)
[2019-09-04] MEDS: MULTIVITAMIN LIQUID (CENTRUM) 60 ML BOTTLE PO SCH (08:40)
[2019-09-04] MEDS: POTASSIUM CHLORIDE 10 MEQ TABLET PO SCH ×2 (08:40→21:28)
[2019-09-04] MEDS: amLODIPine 10 MG TABLET PO SCH (08:40)
[2019-09-04] MEDS: CLOPIDOGREL 75 MG TABLET PO SCH (08:40)
[2019-09-04] MEDS: ASPIRIN EC 81 MG TABLET PO SCH (08:40)
[2019-09-04] MEDS: methylPREDNISolone SOD SUC 40 MG/1 ML VIAL IV SCH ×2 (08:40→21:29)
[2019-09-04] MEDS: carvediloL 25 MG TABLET PO SCH ×2 (08:40→16:35)
[2019-09-04] MEDS ORDERED: PNEUMOCOCCAL VACCINE (23 VALENT) 0.5 ML VIAL IM ONE (09:00)
[2019-09-04] MEDS: PROMETHAZINE 25 MG/1 ML VIAL IM PRN ×2 (09:10→19:03)
[2019-09-04] MEDS ORDERED: POTASSIUM CHLORIDE 20 MEQ TABLET PO ONE (11:28)
[2019-09-04] MEDS: cefTRIAXone 1,000 MG in SYRINGE 1 EACH IV SCH (12:20)
[2019-09-04] MEDS: AZITHROMYCIN INJ 250 MG in SODIUM CHLORIDE 0.9% 150 ML IV SCH (12:40)
[2019-09-04] MEDS: ENOXAPARIN 40 MG/0.4 ML SYRINGE SUBCUT SCH (16:35)
[2019-09-04] MEDS: ATORVASTATIN 80 MG TABLET PO SCH (21:28)
[2019-09-05] MEDS: ACETAMINOPHEN 325 MG TABLET PO PRN (00:58)
[2019-09-05] MEDS: ALBUTEROL/IPRATROPIUM 3 ML NEB RESP TX SCH ×4 (01:29→19:35)
[2019-09-05] MEDS: PROMETHAZINE 25 MG/1 ML VIAL IM PRN ×2 (03:05→16:15)
[2019-09-05] MEDS: FAMOTIDINE 20 MG/2 ML VIAL IV SCH (04:58)
[2019-09-05 07:14] LABS: Calcium 8.2 MG/DL (8.5-10.1); Osmolality,Calculated 278.2 MOS/KG (273-304)
[2019-09-05] MEDS: FUROSEMIDE 40 MG/4 ML VIAL IV SCH (08:00)
[2019-09-05] MEDS: methylPREDNISolone SOD SUC 40 MG/1 ML VIAL IV SCH ×2 (09:00→09:20)
[2019-09-05] MEDS: PANTOPRAZOLE 40 MG TABLET PO SCH (09:20)
[2019-09-05] MEDS: carvediloL 25 MG TABLET PO SCH ×2 (09:20→16:10)
[2019-09-05] MEDS: ASPIRIN EC 81 MG TABLET PO SCH (09:20)
[2019-09-05] MEDS: FUROSEMIDE 40 MG TABLET PO SCH ×2 (09:20→16:10)
[2019-09-05] MEDS: MULTIVITAMIN (CENTRUM) TABLET PO SCH (09:20)
[2019-09-05] MEDS: CLOPIDOGREL 75 MG TABLET PO SCH (09:20)
[2019-09-05] MEDS: amLODIPine 10 MG TABLET PO SCH (09:20)
[2019-09-05] MEDS: POTASSIUM CHLORIDE 10 MEQ TABLET PO SCH ×2 (09:20→22:23)
[2019-09-05] MEDS: LACTOBACILLUS ACIDOPHILUS/BULGARICUS CAPLET PO SCH (09:40)
[2019-09-05] MEDS ORDERED: POTASSIUM CHLORIDE 20 MEQ TABLET PO SCH ×2 (10:00→16:00)
[2019-09-05] MEDS: cefTRIAXone 1,000 MG in SYRINGE 1 EACH IV SCH (12:10)
[2019-09-05] MEDS: ENOXAPARIN 40 MG/0.4 ML SYRINGE SUBCUT SCH (16:10)
[2019-09-05] MEDS: FLUTICASONE 50 MCG NASAL SPRAY 16 GM BOTTLE BOTH NARES SCH (22:22)
[2019-09-05] MEDS: ATORVASTATIN 80 MG TABLET PO SCH (22:23)
[2019-09-06] MEDS: ALBUTEROL/IPRATROPIUM 3 ML NEB RESP TX SCH ×4 (00:15→20:18)
[2019-09-06] MEDS ORDERED: POTASSIUM CHLORIDE 20 MEQ TABLET PO ONE (08:23)
[2019-09-06] MEDS ORDERED: predniSONE 50 MG TABLET PO SCH (09:00)
[2019-09-06] MEDS: MULTIVITAMIN (CENTRUM) TABLET PO SCH (09:54)
[2019-09-06] MEDS: carvediloL 25 MG TABLET PO SCH ×2 (09:55→17:13)
[2019-09-06] MEDS: PANTOPRAZOLE 40 MG TABLET PO SCH (09:55)
[2019-09-06] MEDS: SERTRALINE 100 MG TABLET PO SCH (09:55)
[2019-09-06] MEDS: LACTOBACILLUS ACIDOPHILUS/BULGARICUS CAPLET PO SCH (09:55)
[2019-09-06] MEDS: ASPIRIN EC 81 MG TABLET PO SCH (09:55)
[2019-09-06] MEDS: CLOPIDOGREL 75 MG TABLET PO SCH (09:55)
[2019-09-06] MEDS: amLODIPine 10 MG TABLET PO SCH (09:56)
[2019-09-06] MEDS: predniSONE 20 MG TABLET PO SCH (09:56)
[2019-09-06] MEDS: FUROSEMIDE 40 MG TABLET PO SCH ×2 (09:56→17:13)
[2019-09-06] MEDS: FLUTICASONE 50 MCG NASAL SPRAY 16 GM BOTTLE BOTH NARES SCH ×2 (09:57→22:00)
[2019-09-06] MEDS: guaiFENesin/DM ER 600-30 MG TABLET PO PRN (10:01)
[2019-09-06] MEDS: PROMETHAZINE 25 MG/1 ML VIAL IM PRN (10:52)
[2019-09-06] MEDS: hydrALAZINE 10 MG TABLET PO SCH ×2 (10:52→21:59)
[2019-09-06] MEDS: cefTRIAXone 1,000 MG in SYRINGE 1 EACH IV SCH (13:51)
[2019-09-06] MEDS ORDERED: TUBERCULIN SKIN TEST 0.1 ML SYRINGE INTRADERM ONE (17:02)
[2019-09-06] MEDS: ENOXAPARIN 40 MG/0.4 ML SYRINGE SUBCUT SCH (17:13)
[2019-09-06] MEDS: ATORVASTATIN 80 MG TABLET PO SCH (22:00)
[2019-09-06] MEDS: POTASSIUM CHLORIDE 10 MEQ TABLET PO SCH (22:00)
[2019-09-07] MEDS: ALBUTEROL/IPRATROPIUM 3 ML NEB RESP TX SCH ×4 (01:37→20:10)
[2019-09-07] MEDS: PROMETHAZINE 25 MG/1 ML VIAL IM PRN ×3 (01:59→21:44)
[2019-09-07 09:22] LABS: Osmolality,Calculated 275.8 MOS/KG (273-304); Thyroid Stimulating Hormone 1.44 uIU/ml (0.358-3.74)
[2019-09-07 09:28] LABS: Basophils % 0.4 % (0.0-0.8); Eosinophils # 0.1 10*3/uL (0.0-0.87); Eosinophils % 0.5 % (0.00-10.9); Hematocrit 31.8 VOL% (35.7-47.0); Hemoglobin 8.1 GM/DL (12.0-16.0); Immature Granulocytes % 0.3 %; Immature Granulocytes Absolute 0.03 #; Lymphocytes # 2.8 10*3/uL (1.4-4.0); Lymphocytes % 25.7 % (21.3-54.2); Mean Corpuscular HGB Conc 25.5 GM/DL (32-36); Mean Corpuscular Volume 75.9 FL (87-102); Monocytes % 7.2 % (1.7-12.7); Neutrophils % 65.9 % (38.7-73.9); Platelet Count 238 T/CUMM (130-400); Red Blood Count 4.19 MC/CUMM (3.8-5.5); Red Cell Distribution Width 20.1 % (9.3-17.3); White Blood Count 10.8 T/CUMM (4-12)
[2019-09-07 10:15] LABS: Anisocytosis 2+; Platelet Estimate Normal; Poikilocytosis Slight
[2019-09-07] MEDS: hydrALAZINE 10 MG TABLET PO SCH ×2 (10:18→21:43)
[2019-09-07] MEDS: FUROSEMIDE 40 MG TABLET PO SCH ×2 (10:18→16:10)
[2019-09-07] MEDS: MULTIVITAMIN (CENTRUM) TABLET PO SCH (10:18)
[2019-09-07] MEDS: POTASSIUM CHLORIDE 10 MEQ TABLET PO SCH ×2 (10:18→21:43)
[2019-09-07] MEDS: predniSONE 20 MG TABLET PO SCH (10:19)
[2019-09-07] MEDS: guaiFENesin/DM ER 600-30 MG TABLET PO PRN (10:19)
[2019-09-07] MEDS: LACTOBACILLUS ACIDOPHILUS/BULGARICUS CAPLET PO SCH (10:19)
[2019-09-07] MEDS: carvediloL 25 MG TABLET PO SCH ×2 (10:19→16:11)
[2019-09-07] MEDS: amLODIPine 10 MG TABLET PO SCH (10:19)
[2019-09-07] MEDS: ASPIRIN EC 81 MG TABLET PO SCH (10:20)
[2019-09-07] MEDS: SERTRALINE 100 MG TABLET PO SCH (10:20)
[2019-09-07] MEDS: CLOPIDOGREL 75 MG TABLET PO SCH (10:20)
[2019-09-07] MEDS: PANTOPRAZOLE 40 MG TABLET PO SCH (10:20)
[2019-09-07] MEDS: FLUTICASONE 50 MCG NASAL SPRAY 16 GM BOTTLE BOTH NARES SCH ×2 (10:21→21:52)
[2019-09-07] MEDS: cefTRIAXone 1,000 MG in SYRINGE 1 EACH IV SCH (12:50)
[2019-09-07] MEDS: ENOXAPARIN 40 MG/0.4 ML SYRINGE SUBCUT SCH (16:10)
[2019-09-07] MEDS: ATORVASTATIN 80 MG TABLET PO SCH (21:43)
[2019-09-08] MEDS: ALBUTEROL/IPRATROPIUM 3 ML NEB RESP TX SCH ×4 (00:45→19:48)
[2019-09-08 05:12] LABS: Basophils % 0.4 % (0.0-0.8); Eosinophils # 0.1 10*3/uL (0.0-0.87); Eosinophils % 0.7 % (0.00-10.9); Hematocrit 31.7 VOL% (35.7-47.0); Immature Granulocytes % 0.3 %; Immature Granulocytes Absolute 0.03 #; Lymphocytes # 2.4 10*3/uL (1.4-4.0); Lymphocytes % 24.7 % (21.3-54.2); Mean Corpuscular HGB Conc 25.2 GM/DL (32-36); Mean Corpuscular Volume 76.2 FL (87-102); Monocytes % 6.3 % (1.7-12.7); Neutrophils % 67.6 % (38.7-73.9); Platelet Count 255 T/CUMM (130-400); Red Blood Count 4.16 MC/CUMM (3.8-5.5); Red Cell Distribution Width 20.1 % (9.3-17.3); White Blood Count 9.7 T/CUMM (4-12)
[2019-09-08 05:32] LABS: Calcium 8.3 MG/DL (8.5-10.1); Osmolality,Calculated 278.7 MOS/KG (273-304)
[2019-09-08 06:48] LABS: Anisocytosis 1+; Hypochromasia 1+; Ovalocytes 1+; Platelet Estimate Normal; Tear Drop Cells 1+
[2019-09-08] MEDS: MAGNESIUM SULF RIDER 2 GM in PREMIX 1 EACH IV PRN (06:59)
[2019-09-08] MEDS: LACTOBACILLUS ACIDOPHILUS/BULGARICUS CAPLET PO SCH (08:07)
[2019-09-08] MEDS: MULTIVITAMIN (CENTRUM) TABLET PO SCH (08:07)
[2019-09-08] MEDS: predniSONE 20 MG TABLET PO SCH (08:08)
[2019-09-08] MEDS: ASPIRIN EC 81 MG TABLET PO SCH (08:08)
[2019-09-08] MEDS: carvediloL 25 MG TABLET PO SCH ×2 (08:08→16:15)
[2019-09-08] MEDS: PANTOPRAZOLE 40 MG TABLET PO SCH (08:08)
[2019-09-08] MEDS: FUROSEMIDE 40 MG TABLET PO SCH ×2 (08:08→16:15)
[2019-09-08] MEDS: POTASSIUM CHLORIDE 10 MEQ TABLET PO SCH ×2 (08:08→21:28)
[2019-09-08] MEDS: SERTRALINE 100 MG TABLET PO SCH (08:08)
[2019-09-08] MEDS: CLOPIDOGREL 75 MG TABLET PO SCH (08:08)
[2019-09-08] MEDS: amLODIPine 10 MG TABLET PO SCH (08:08)
[2019-09-08] MEDS: hydrALAZINE 10 MG TABLET PO SCH ×2 (08:08→21:28)
[2019-09-08] MEDS: FLUTICASONE 50 MCG NASAL SPRAY 16 GM BOTTLE BOTH NARES SCH ×2 (08:09→21:30)
[2019-09-08] MEDS: PROMETHAZINE 25 MG/1 ML VIAL IM PRN ×2 (09:26→21:28)
[2019-09-08] MEDS: cefTRIAXone 1,000 MG in SYRINGE 1 EACH IV SCH (14:35)
[2019-09-08] MEDS: ENOXAPARIN 40 MG/0.4 ML SYRINGE SUBCUT SCH (16:15)
[2019-09-08] MEDS: ATORVASTATIN 80 MG TABLET PO SCH (21:28)
[2019-09-09 06:01] LABS: Basophils % 0.4 % (0.0-0.8); Eosinophils # 0.2 10*3/uL (0.0-0.87); Eosinophils % 1.5 % (0.00-10.9); Hematocrit 30.1 VOL% (35.7-47.0); Immature Granulocytes % 0.5 %; Immature Granulocytes Absolute 0.05 #; Lymphocytes # 2.6 10*3/uL (1.4-4.0); Lymphocytes % 24.5 % (21.3-54.2); Mean Corpuscular HGB Conc 25.9 GM/DL (32-36); Mean Corpuscular Volume 75.6 FL (87-102); Monocytes % 6.6 % (1.7-12.7); Neutrophils % 66.5 % (38.7-73.9); Platelet Count 287 T/CUMM (130-400); Red Blood Count 3.98 MC/CUMM (3.8-5.5); Red Cell Distribution Width 19.8 % (9.3-17.3); White Blood Count 10.7 T/CUMM (4-12)
[2019-09-09 06:26] LABS: Hemoglobin 7.8 GM/DL (12.0-16.0)
[2019-09-09 06:34] LABS: Calcium 8.4 MG/DL (8.5-10.1)
[2019-09-09 06:37] LABS: Hypochromasia 2+; Ovalocytes Slight; Platelet Estimate Adequate
[2019-09-09] MEDS: ALBUTEROL/IPRATROPIUM 3 ML NEB RESP TX SCH ×4 (07:29→19:28)
[2019-09-09] MEDS: POTASSIUM CHLORIDE 10 MEQ TABLET PO SCH ×2 (08:21→20:49)
[2019-09-09] MEDS: LACTOBACILLUS ACIDOPHILUS/BULGARICUS CAPLET PO SCH (08:21)
[2019-09-09] MEDS: ASPIRIN EC 81 MG TABLET PO SCH (08:21)
[2019-09-09] MEDS: predniSONE 20 MG TABLET PO SCH (08:21)
[2019-09-09] MEDS: SERTRALINE 100 MG TABLET PO SCH (08:22)
[2019-09-09] MEDS: carvediloL 25 MG TABLET PO SCH ×2 (08:22→17:15)
[2019-09-09] MEDS: amLODIPine 10 MG TABLET PO SCH (08:22)
[2019-09-09] MEDS: hydrALAZINE 10 MG TABLET PO SCH ×2 (08:22→20:49)
[2019-09-09] MEDS: FUROSEMIDE 40 MG TABLET PO SCH ×2 (08:22→17:15)
[2019-09-09] MEDS: PANTOPRAZOLE 40 MG TABLET PO SCH (08:22)
[2019-09-09] MEDS: CLOPIDOGREL 75 MG TABLET PO SCH (08:22)
[2019-09-09] MEDS: MULTIVITAMIN (CENTRUM) TABLET PO SCH (08:22)
[2019-09-09] MEDS: FLUTICASONE 50 MCG NASAL SPRAY 16 GM BOTTLE BOTH NARES SCH ×2 (08:27→20:49)
[2019-09-09] MEDS: PROMETHAZINE 25 MG/1 ML VIAL IM PRN ×2 (08:27→17:15)
[2019-09-09] MEDS: ENOXAPARIN 40 MG/0.4 ML SYRINGE SUBCUT SCH (17:15)
[2019-09-09] MEDS: ATORVASTATIN 80 MG TABLET PO SCH (20:49)
[2019-09-09] MEDS: ACETAMINOPHEN 325 MG TABLET PO PRN (20:53)
[2019-09-10] MEDS: ALBUTEROL/IPRATROPIUM 3 ML NEB RESP TX SCH ×4 (01:43→19:38)
[2019-09-10] MEDS: predniSONE 20 MG TABLET PO SCH (08:25)
[2019-09-10] MEDS: LACTOBACILLUS ACIDOPHILUS/BULGARICUS CAPLET PO SCH (08:25)
[2019-09-10] MEDS: SERTRALINE 100 MG TABLET PO SCH (08:26)
[2019-09-10] MEDS: FUROSEMIDE 40 MG TABLET PO SCH ×2 (08:26→16:15)
[2019-09-10] MEDS: CLOPIDOGREL 75 MG TABLET PO SCH (08:26)
[2019-09-10] MEDS: amLODIPine 10 MG TABLET PO SCH (08:26)
[2019-09-10] MEDS: hydrALAZINE 10 MG TABLET PO SCH ×2 (08:26→20:46)
[2019-09-10] MEDS: PANTOPRAZOLE 40 MG TABLET PO SCH (08:27)
[2019-09-10] MEDS: ASPIRIN EC 81 MG TABLET PO SCH (08:27)
[2019-09-10] MEDS: carvediloL 25 MG TABLET PO SCH ×2 (08:27→16:15)
[2019-09-10] MEDS: ERGOCALCIFEROL 50,000 UNIT CAPSULE PO SCH (08:27)
[2019-09-10] MEDS: POTASSIUM CHLORIDE 10 MEQ TABLET PO SCH ×2 (08:27→20:46)
[2019-09-10] MEDS: MULTIVITAMIN (CENTRUM) TABLET PO SCH (08:27)
[2019-09-10] MEDS: FLUTICASONE 50 MCG NASAL SPRAY 16 GM BOTTLE BOTH NARES SCH ×2 (08:28→20:46)
[2019-09-10] MEDS: PROMETHAZINE 25 MG/1 ML VIAL IM PRN ×2 (09:02→20:46)
[2019-09-10] MEDS: ENOXAPARIN 40 MG/0.4 ML SYRINGE SUBCUT SCH (16:15)
[2019-09-10] MEDS: ATORVASTATIN 80 MG TABLET PO SCH (20:46)
[2019-09-11] MEDS: ALBUTEROL/IPRATROPIUM 3 ML NEB RESP TX SCH ×3 (01:44→13:09)
[2019-09-11] MEDS: FLUTICASONE 50 MCG NASAL SPRAY 16 GM BOTTLE BOTH NARES SCH (09:14)
[2019-09-11] MEDS: PROMETHAZINE 25 MG/1 ML VIAL IM PRN (09:17)
[2019-09-11] MEDS: FUROSEMIDE 40 MG TABLET PO SCH ×2 (09:18→15:23)
[2019-09-11] MEDS: POTASSIUM CHLORIDE 10 MEQ TABLET PO SCH (09:18)
[2019-09-11] MEDS: LACTOBACILLUS ACIDOPHILUS/BULGARICUS CAPLET PO SCH (09:18)
[2019-09-11] MEDS: ASPIRIN EC 81 MG TABLET PO SCH (09:18)
[2019-09-11] MEDS: predniSONE 20 MG TABLET PO SCH (09:18)
[2019-09-11] MEDS: amLODIPine 10 MG TABLET PO SCH (09:18)
[2019-09-11] MEDS: carvediloL 25 MG TABLET PO SCH (09:18)
[2019-09-11] MEDS: SERTRALINE 100 MG TABLET PO SCH (09:19)
[2019-09-11] MEDS: MULTIVITAMIN (CENTRUM) TABLET PO SCH (09:19)
[2019-09-11] MEDS: hydrALAZINE 10 MG TABLET PO SCH (09:19)
[2019-09-11] MEDS: PANTOPRAZOLE 40 MG TABLET PO SCH (09:19)
[2019-09-11] MEDS: CLOPIDOGREL 75 MG TABLET PO SCH (09:19)
[2019-09-11 12:27] VITALS: BP 143/62
[2019-09-11] MEDS: ENOXAPARIN 40 MG/0.4 ML SYRINGE SUBCUT SCH (15:23)
== END 2019-09-11 16:14 | disposition swing bed (61) | DRG 133 ==
LOC: EDBD → EDUNIT# → N.ED 12:55 → N.EDINP 15:57 → SUATTDRO 15:57 → N.ICU 17:02 → N.5E 09-05 17:27
PROVIDERS: ADMIT Family Medicine; ATTEND Internal Medicine

== ENCOUNTER 2020-09-24 10:07 | Observation (INO) ==
[2020-09-24 10:48] LABS: PT Patient Result 10.7 SECS (9.8-11.9); Partial Thromboplastin Time 27.9 SECS (23.9-33.8)
[2020-09-24 11:10] LABS: Albumin 3.3 G/DL (3.4-5.0); Bilirubin,Total 0.9 MG/DL (0.2-1.0); Calcium 7.4 MG/DL (8.5-10.1); Osmolality,Calculated 269.2 MOS/KG (273-304); Potassium 3.5 MMOL/L (3.5-5.1); Total Protein 8.4 G/DL (5.0-7.5)
[2020-09-24 11:20] LABS: Basophils % 0.3 % (0.0-0.8); Eosinophils % 0.3 % (0.00-10.9); Hematocrit 29.2 VOL% (35.7-47.0); Immature Granulocytes % 0.4 %; Immature Granulocytes Absolute 0.03 #; Lymphocytes # 1.2 10*3/uL (1.4-4.0); Lymphocytes % 16.8 % (21.3-54.2); Mean Corpuscular HGB Conc 27.1 GM/DL (32-36); Mean Corpuscular Volume 72.8 FL (87-102); Monocytes % 4.7 % (1.7-12.7); NRBC # 0.02 10*3/uL; Neutrophils % 77.5 % (38.7-73.9); Platelet Count 139 T/CUMM (130-400); Red Blood Count 4.01 MC/CUMM (3.8-5.5); Red Cell Distribution Width 17.6 % (9.3-17.3); White Blood Count 7.4 T/CUMM (4-12)
[2020-09-24 11:21] LABS: Hemoglobin 7.9 GM/DL (12.0-16.0)
[2020-09-24 11:49] LABS: Hypochromasia 2+
[2020-09-24 11:50] LABS: Microcytosis 1+; Polychromasia Slight
[2020-09-24 11:51] LABS: Anisocytosis 1+; Platelet Estimate Adequate; Stomatocytes Slight
[2020-09-24] MEDS ORDERED: SODIUM BICARBONATE 50 MEQ/50 ML VIAL IV STA (13:05)
[2020-09-24] MEDS ORDERED: INSULIN REGULAR 100 UNIT/ML IV STA (13:06)
[2020-09-24] MEDS ORDERED: CALCIUM CHLORIDE 1,000 MG/10 ML SYRINGE IV STA (13:07)
[2020-09-24] MEDS ORDERED: DEXTROSE 50% 25 GM/50 ML VIAL IV STA (13:08)
[2020-09-24] MEDS ORDERED: DEXTROSE 50% 25 GM/50 ML VIAL IV PRN ×2 (13:47)
[2020-09-24] MEDS ORDERED: GLUCAGON 1 MG VIAL IM PRN ×2 (13:47)
[2020-09-24] MEDS ORDERED: ALBUTEROL 2.5 MG/3 ML NEB RESP TX PRN (14:00)
[2020-09-24] MEDS ORDERED: ERGOCALCIFEROL 50,000 UNIT CAPSULE PO SCH (14:00)
[2020-09-24] MEDS: ENOXAPARIN 40 MG/0.4 ML SYRINGE SUBCUT SCH (14:34)
[2020-09-24] MEDS ORDERED: PNEUMOCOCCAL VACCINE (23 VALENT) 0.5 ML VIAL IM ONE (15:39)
[2020-09-24] MEDS ORDERED: POTASSIUM CHLORIDE 20 MEQ TABLET PO ONE (15:56)
[2020-09-24 16:44] LABS: % Iron Saturation 8.3 % (18-50); Ferritin 14.6 ng/ml (8-252)
[2020-09-24] MEDS: INSULIN REGULAR 100 UNIT/ML SUBCUT SCH ×2 (16:59→20:34)
[2020-09-24 17:26] LABS: Folate 7.6 NG/ML (5.38-24.0)
[2020-09-24] MEDS: FUROSEMIDE 40 MG/4 ML VIAL IV SCH (17:51)
[2020-09-24] MEDS: PROMETHAZINE 25 MG/1 ML VIAL IM PRN (17:51)
[2020-09-24] MEDS: ACETAMINOPHEN 325 MG TABLET PO PRN (20:36)
[2020-09-24] MEDS: carvediloL 12.5 MG TABLET PO SCH (20:36)
[2020-09-24] MEDS: PANTOPRAZOLE 40 MG TABLET PO SCH (20:36)
[2020-09-25] MEDS: PROMETHAZINE 25 MG/1 ML VIAL IM PRN (04:50)
[2020-09-25] MEDS: ACETAMINOPHEN 325 MG TABLET PO PRN (04:50)
[2020-09-25 06:01] LABS: Basophils % 0.2 % (0.0-0.8); Eosinophils % 0.5 % (0.00-10.9); Hematocrit 28.2 VOL% (35.7-47.0); Immature Granulocytes % 0.4 %; Immature Granulocytes Absolute 0.02 #; Lymphocytes # 1.4 10*3/uL (1.4-4.0); Lymphocytes % 25.2 % (21.3-54.2); Mean Corpuscular HGB Conc 26.2 GM/DL (32-36); Mean Corpuscular Volume 74.8 FL (87-102); Monocytes % 5.7 % (1.7-12.7); Platelet Count 134 T/CUMM (130-400); Red Blood Count 3.77 MC/CUMM (3.8-5.5); Red Cell Distribution Width 17.9 % (9.3-17.3); White Blood Count 5.5 T/CUMM (4-12)
[2020-09-25 06:12] LABS: Calcium 7.3 MG/DL (8.5-10.1); Osmolality,Calculated 276.7 MOS/KG (273-304); Potassium 3.3 MMOL/L (3.5-5.1)
[2020-09-25 06:23] LABS: Calcium 7.3 MG/DL (8.5-10.1); Osmolality,Calculated 274.8 MOS/KG (273-304); Potassium 3.3 MMOL/L (3.5-5.1); Risk Ratio 3.42; Thyroid Stimulating Hormone 0.953 uIU/ml (0.358-3.74); VLDL CHOLESTEROL 33.2 MG/DL
[2020-09-25 06:41] LABS: Hemoglobin 7.4 GM/DL (12.0-16.0)
[2020-09-25 06:45] LABS: Hypochromasia 3+; Ovalocytes Few; Stomatocytes Few
[2020-09-25 06:46] LABS: Microcytosis 3+; Platelet Estimate Adequate
[2020-09-25] MEDS ORDERED: MAGNESIUM SULF RIDER 2 GM in PREMIX 1 EACH IV PRN (08:42)
[2020-09-25] MEDS ORDERED: POTASSIUM CHLORIDE 20 MEQ TABLET PO ONE (08:42)
[2020-09-25] MEDS ORDERED: MAGNESIUM SULF RIDER 4 GM in PREMIX 1 EACH IV PRN (08:42)
[2020-09-25] MEDS ORDERED: SODIUM CHLORIDE 0.9% 1,000 ML IV PRN (08:44)
[2020-09-25 08:51] LABS: Folate 8.9 NG/ML (5.38-24.0)
[2020-09-25] MEDS: INSULIN REGULAR 100 UNIT/ML SUBCUT SCH ×4 (09:25→21:35)
[2020-09-25 09:43] LABS: Ferritin 14.9 ng/ml (8-252)
[2020-09-25] MEDS: ASPIRIN EC 81 MG TABLET PO SCH (10:23)
[2020-09-25] MEDS: PANTOPRAZOLE 40 MG TABLET PO SCH ×2 (10:23→21:32)
[2020-09-25] MEDS: carvediloL 12.5 MG TABLET PO SCH ×2 (10:23→21:32)
[2020-09-25] MEDS: SERTRALINE 100 MG TABLET PO SCH (10:23)
[2020-09-25] MEDS: FUROSEMIDE 40 MG/4 ML VIAL IV SCH ×2 (10:24→16:54)
[2020-09-25] MEDS: ENOXAPARIN 40 MG/0.4 ML SYRINGE SUBCUT SCH (16:54)
[2020-09-25] MEDS ORDERED: BACLOFEN 10 MG TABLET PO SCH (21:00)
[2020-09-25] MEDS: allopurinoL 100 MG TABLET PO SCH (21:32)
[2020-09-26 06:47] LABS: Calcium 7.4 MG/DL (8.5-10.1); Osmolality,Calculated 276.7 MOS/KG (273-304); Potassium 3.8 MMOL/L (3.5-5.1)
[2020-09-26 06:52] LABS: Basophils % 0.4 % (0.0-0.8); Hematocrit 33.3 VOL% (35.7-47.0); Immature Granulocytes % 0.2 %; Immature Granulocytes Absolute 0.02 #; Lymphocytes # 1.6 10*3/uL (1.4-4.0); Lymphocytes % 18.8 % (21.3-54.2); Mean Corpuscular Volume 77.4 FL (87-102); Monocytes % 4.5 % (1.7-12.7); Neutrophils % 76.1 % (38.7-73.9); Platelet Count 134 T/CUMM (130-400); Red Cell Distribution Width 18.2 % (9.3-17.3); White Blood Count 8.3 T/CUMM (4-12)
[2020-09-26 07:13] LABS: Hypochromasia 1+; Microcytosis 1+; Platelet Estimate Adequate
[2020-09-26] MEDS: INSULIN REGULAR 100 UNIT/ML SUBCUT SCH ×2 (08:21→12:54)
[2020-09-26] MEDS: carvediloL 12.5 MG TABLET PO SCH (08:35)
[2020-09-26] MEDS: SERTRALINE 100 MG TABLET PO SCH (08:36)
[2020-09-26] MEDS: PANTOPRAZOLE 40 MG TABLET PO SCH (08:36)
[2020-09-26] MEDS: ASPIRIN EC 81 MG TABLET PO SCH (08:36)
[2020-09-26] MEDS: allopurinoL 100 MG TABLET PO SCH (08:36)
[2020-09-26] MEDS ORDERED: FUROSEMIDE 80 MG TABLET PO SCH (09:00)
[2020-09-26] MEDS ORDERED: MULTIVITAMIN (CENTRUM) TABLET PO SCH (09:00)
[2020-09-26] MEDS: ACETAMINOPHEN 325 MG TABLET PO PRN (09:47)
[2020-09-26] MEDS ORDERED: SODIUM CHLORIDE 0.45% 500 ML IV ONE (10:29)
[2020-09-26 12:17] VITALS: BP 100/51
[2020-09-26] MEDS: ENOXAPARIN 40 MG/0.4 ML SYRINGE SUBCUT SCH (15:15)
== END 2020-09-26 15:22 | disposition home or self-care (01) ==
LOC: EDUNIT# → EDBD → N.ED 10:07 → N.EDINP 10:07 → SUATTDRO 13:47 → N.EDINP 15:16 → N.TELEN 15:17
PROVIDERS: ADMIT Emergency Medicine; ATTEND Internal Medicine

== ENCOUNTER 2021-03-09 16:15 | Inpatient (IN) ==
[2021-03-09] MEDS ORDERED: SODIUM CHLORIDE 0.9% 1,000 ML IV STA (17:18)
[2021-03-09] MEDS ORDERED: DEXAMETHASONE 4 MG/1 ML VIAL IV STA (17:18)
[2021-03-09 17:42] LABS: Basophils % 0.3 % (0.0-0.8); Eosinophils # 0.2 10*3/uL (0.0-0.87); Eosinophils % 2.8 % (0.00-10.9); Hematocrit 28.5 VOL% (35.7-47.0); Hemoglobin 7.4 GM/DL (12.0-16.0); Immature Granulocytes % 0.7 %; Immature Granulocytes Absolute 0.05 #; Lymphocytes # 1.3 10*3/uL (1.4-4.0); Lymphocytes % 17.1 % (21.3-54.2); Mean Corpuscular Volume 79.2 FL (87-102); Monocytes % 3.9 % (1.7-12.7); Neutrophils % 75.2 % (38.7-73.9); Platelet Count 189 T/CUMM (130-400); Red Cell Distribution Width 18.7 % (9.3-17.3); White Blood Count 7.4 T/CUMM (4-12)
[2021-03-09 18:10] LABS: Bilirubin,Urine Negative (Negative); Blood, Urine Small mg/dL (Negative); Glucose,Urine (UA) Negative (Negative); Ketones,Urine Negative (Negative); Nitrite,Urine Negative (Negative); Protein,Urine 100 MG/DL; RBC,Urine <1 /HPF (0-4); Squamous Epithelial Cell,Urine Occasional /HPF (0-10); Urine Appearance CLEAR (Clear); Urine Color Yellow (Yellow); Urine Specific Gravity 1.009 (1.001-1.035); Urine Urobilinogen < 2.0 EU/DL (0.2-1.0)
[2021-03-09 18:11] LABS: Albumin 2.9 G/DL (3.4-5.0); Bilirubin,Total 1.2 MG/DL (0.20-1.00); Osmolality,Calculated 272.5 MOS/KG (273-304); Potassium 3.1 MMOL/L (3.5-5.1); Thyroid Stimulating Hormone 0.62 uIU/ml (0.358-3.74); Total Protein 8.2 G/DL (6.4-8.2)
[2021-03-09 18:18] LABS: Ferritin 41.5 ng/ml (8-252)
[2021-03-09 18:19] LABS: Calcium 5.1 MG/DL (8.5-10.1)
[2021-03-09] MEDS ORDERED: FUROSEMIDE 40 MG/4 ML VIAL IV STA (20:34)
[2021-03-09] MEDS ORDERED: PROMETHAZINE 25 MG/1 ML VIAL IM STA (21:09)
[2021-03-09] MEDS ORDERED: PROMETHAZINE 25 MG/1 ML VIAL ONE (21:10)
[2021-03-09 21:35] LABS: Osmolality,Calculated 267.1 MOS/KG (273-304); Potassium 3.1 MMOL/L (3.5-5.1)
[2021-03-09 21:39] LABS: Calcium 5.2 MG/DL (8.5-10.1)
[2021-03-09] MEDS ORDERED: CALCIUM GLUCONATE 2,000 MG in SODIUM CHLORIDE 0.9% 100 ML IV ONE (21:59)
[2021-03-10] MEDS ORDERED: DEXTROSE 50% 25 GM/50 ML VIAL IV PRN (00:37)
[2021-03-10] MEDS ORDERED: NICOTINE 21 MG/24 HR PATCH TRANSDERM PRN (00:37)
[2021-03-10] MEDS ORDERED: GLUCAGON 1 MG VIAL IM PRN (00:37)
[2021-03-10] MEDS ORDERED: hydrALAZINE 20 MG/1 ML VIAL IV PRN (00:37)
[2021-03-10] MEDS ORDERED: POTASSIUM CHLORIDE 20 MEQ TABLET PO STA (00:41)
[2021-03-10] MEDS: ALBUTEROL/IPRATROPIUM 3 ML NEB RESP TX SCH ×4 (01:15→20:57)
[2021-03-10] MEDS ORDERED: MAGNESIUM SULF RIDER 4 GM/100 ML PREMIX IV ONE (02:00)
[2021-03-10 02:59] LABS: Albumin 3.3 G/DL (3.4-5.0); Bilirubin,Total 0.8 MG/DL (0.20-1.00); Osmolality,Calculated 273.7 MOS/KG (273-304); Potassium 3.2 MMOL/L (3.5-5.1); Total Protein 8.1 G/DL (6.4-8.2)
[2021-03-10 03:06] LABS: Calcium 5.5 MG/DL (8.5-10.1)
[2021-03-10] MEDS: MAGNESIUM SULF RIDER 2 GM/50 ML PREMIX IV SCH ×4 (03:24→11:24)
[2021-03-10] MEDS: SODIUM CHLORIDE 0.9% 1,000 ML IV SCH ×2 (03:24→15:29)
[2021-03-10] MEDS ORDERED: CALCIUM GLUCONATE 2,000 MG in SODIUM CHLORIDE 0.9% 100 ML IV ONE ×3 (05:00→17:00)
[2021-03-10] MEDS: PROMETHAZINE 25 MG TABLET PO PRN ×2 (06:01→13:01)
[2021-03-10 06:08] LABS: Albumin 3.3 G/DL (3.4-5.0); Bilirubin,Total 0.7 MG/DL (0.20-1.00); Osmolality,Calculated 272.8 MOS/KG (273-304); Potassium 3.3 MMOL/L (3.5-5.1); Total Protein 8.9 G/DL (6.4-8.2)
[2021-03-10] MEDS: INSULIN REGULAR 100 UNIT/ML SUBCUT SCH ×4 (09:13→20:50)
[2021-03-10] MEDS: ENOXAPARIN 40 MG/0.4 ML SYRINGE SUBCUT SCH (09:14)
[2021-03-10] MEDS ORDERED: MAGNESIUM SULF RIDER 2 GM/50 ML PREMIX IV ONE ×2 (11:07→11:10)
[2021-03-10] MEDS ORDERED: MAGNESIUM SULF RIDER 2 GM/50 ML PREMIX IV PRN (11:39)
[2021-03-10] MEDS ORDERED: MAGNESIUM SULF RIDER 4 GM/100 ML PREMIX IV PRN (11:39)
[2021-03-10] MEDS: CHOLECALCIFEROL 5,000 UNIT TABLET PO SCH ×2 (12:56→21:15)
[2021-03-10] MEDS ORDERED: MAGNESIUM SULF RIDER 2 GM/50 ML PREMIX IV SCH (13:00)
[2021-03-11] MEDS: ALBUTEROL/IPRATROPIUM 3 ML NEB RESP TX SCH ×4 (00:35→19:41)
[2021-03-11 06:38] LABS: Basophils % 0.3 % (0.0-0.8); Hematocrit 29.3 VOL% (35.7-47.0); Hemoglobin 7.3 GM/DL (12.0-16.0); Immature Granulocytes % 0.9 %; Immature Granulocytes Absolute 0.09 #; Lymphocytes # 2.3 10*3/uL (1.4-4.0); Lymphocytes % 23.3 % (21.3-54.2); Mean Corpuscular HGB Conc 24.9 GM/DL (32-36); Mean Corpuscular Volume 80.7 FL (87-102); Monocytes % 7.7 % (1.7-12.7); Neutrophils % 67.8 % (38.7-73.9); Platelet Count 198 T/CUMM (130-400); Red Blood Count 3.63 MC/CUMM (3.8-5.5); Red Cell Distribution Width 18.9 % (9.3-17.3)
[2021-03-11 07:10] LABS: Albumin 2.9 G/DL (3.4-5.0); Calcium 6.3 MG/DL (8.5-10.1); Potassium 3.5 MMOL/L (3.5-5.1); Total Protein 7.9 G/DL (6.4-8.2)
[2021-03-11] MEDS: ENOXAPARIN 40 MG/0.4 ML SYRINGE SUBCUT SCH (09:10)
[2021-03-11] MEDS: CHOLECALCIFEROL 5,000 UNIT TABLET PO SCH ×2 (09:10→21:18)
[2021-03-11] MEDS: INSULIN REGULAR 100 UNIT/ML SUBCUT SCH ×4 (09:16→20:59)
[2021-03-11] MEDS: PROMETHAZINE 25 MG TABLET PO PRN (11:31)
[2021-03-11] MEDS ORDERED: POTASSIUM CHLORIDE 20 MEQ/15 ML UDCUP PO ONE (14:51)
[2021-03-11] MEDS ORDERED: CALCIUM GLUCONATE 2,000 MG in SODIUM CHLORIDE 0.9% 100 ML IV ONE (14:51)
[2021-03-11] MEDS ORDERED: POTASSIUM CHLORIDE 20 MEQ PACK PO ONE (16:00)
[2021-03-12] MEDS: ALBUTEROL/IPRATROPIUM 3 ML NEB RESP TX SCH ×4 (00:04→19:21)
[2021-03-12] MEDS: MEPERIDINE 50 MG/1 ML VIAL IM PRN ×3 (02:06→22:40)
[2021-03-12 05:08] LABS: Calcium 6.7 MG/DL (8.5-10.1); Osmolality,Calculated 269.8 MOS/KG (273-304); Potassium 3.2 MMOL/L (3.5-5.1)
[2021-03-12] MEDS ORDERED: CALCIUM GLUCONATE 1,000 MG in SODIUM CHLORIDE 0.9% 100 ML IV ONE (07:28)
[2021-03-12] MEDS: INSULIN REGULAR 100 UNIT/ML SUBCUT SCH ×4 (07:48→21:27)
[2021-03-12] MEDS: ENOXAPARIN 40 MG/0.4 ML SYRINGE SUBCUT SCH (09:13)
[2021-03-12] MEDS: CHOLECALCIFEROL 5,000 UNIT TABLET PO SCH ×2 (09:13→21:25)
[2021-03-12] MEDS: PROMETHAZINE 25 MG TABLET PO PRN ×2 (10:22→22:40)
[2021-03-12] MEDS: CALCIUM (CARBONATE) 500 MG TABLET PO SCH (14:13)
[2021-03-12] MEDS: PANTOPRAZOLE 40 MG TABLET PO SCH (14:13)
[2021-03-13] MEDS: ALBUTEROL/IPRATROPIUM 3 ML NEB RESP TX SCH ×4 (00:50→21:45)
[2021-03-13] MEDS: INSULIN REGULAR 100 UNIT/ML SUBCUT SCH ×4 (07:36→22:25)
[2021-03-13] MEDS: CALCIUM (CARBONATE) 500 MG TABLET PO SCH ×2 (09:12→22:25)
[2021-03-13] MEDS: ENOXAPARIN 40 MG/0.4 ML SYRINGE SUBCUT SCH (09:12)
[2021-03-13] MEDS: CHOLECALCIFEROL 5,000 UNIT TABLET PO SCH (09:12)
[2021-03-13] MEDS: PANTOPRAZOLE 40 MG TABLET PO SCH (09:12)
[2021-03-13] MEDS ORDERED: POTASSIUM BICARB EFFERVESCENT 20 MEQ TAB.EFF PO ONE (09:17)
[2021-03-13] MEDS ORDERED: CALCIUM GLUCONATE 2,000 MG in SODIUM CHLORIDE 0.9% 100 ML IV ONE (09:25)
[2021-03-13] MEDS: MAGNESIUM OXIDE 400 MG TABLET PO SCH (22:25)
[2021-03-14] MEDS: ALBUTEROL/IPRATROPIUM 3 ML NEB RESP TX SCH ×4 (02:16→19:09)
[2021-03-14 06:26] LABS: % Iron Saturation 17.1 % (18-50)
[2021-03-14 06:44] LABS: Alanine Aminotransferase < 6 U/L (13-56); Albumin 2.8 G/DL (3.4-5.0); Alkaline Phosphatase 91 U/L (45-117); Aspartate Amino Transferase 23 U/L (0-37); Blood Urea Nitrogen 5 MG/DL (7-18); Calcium 8.1 MG/DL (8.5-10.1); Carbon Dioxide 42 MMOL/L (21-32); Estimated Glom Filtration Rate 129 ML/MIN; Glucose 134 MG/DL (74-106); Osmolality,Calculated 275.5 MOS/KG (273-304); Potassium 3.3 MMOL/L (3.5-5.1); Sodium 139 MMOL/L (136-145); Total Protein 7.5 G/DL (6.4-8.2)
[2021-03-14] MEDS ORDERED: POTASSIUM BICARB EFFERVESCENT 20 MEQ TAB.EFF PO ONE (07:20)
[2021-03-14] MEDS: INSULIN REGULAR 100 UNIT/ML SUBCUT SCH ×4 (08:00→21:01)
[2021-03-14] MEDS: ENOXAPARIN 40 MG/0.4 ML SYRINGE SUBCUT SCH (08:45)
[2021-03-14] MEDS: PANTOPRAZOLE 40 MG TABLET PO SCH (08:46)
[2021-03-14] MEDS: MAGNESIUM OXIDE 400 MG TABLET PO SCH ×2 (08:46→21:44)
[2021-03-14] MEDS: CALCIUM (CARBONATE) 500 MG TABLET PO SCH ×2 (08:47→21:44)
[2021-03-14] MEDS ORDERED: ACETAMINOPHEN 325 MG TABLET PO PRN (16:54)
[2021-03-14] MEDS: POTASSIUM CHLORIDE 20 MEQ TABLET PO PRN (21:44)
[2021-03-15] MEDS: ALBUTEROL/IPRATROPIUM 3 ML NEB RESP TX SCH ×3 (00:50→13:28)
[2021-03-15] MEDS: POTASSIUM CHLORIDE 20 MEQ TABLET PO PRN (04:15)
[2021-03-15 06:00] LABS: Bilirubin,Total 0.8 MG/DL (0.20-1.00); Calcium 8.6 MG/DL (8.5-10.1); Osmolality,Calculated 272.7 MOS/KG (273-304); Total Protein 8.2 G/DL (6.4-8.2)
[2021-03-15] MEDS ORDERED: FERRIC GLUCONATE COMPLEX 125 MG in SODIUM CHLORIDE 0.9% 100 ML IV SCH (09:00)
[2021-03-15] MEDS: MAGNESIUM OXIDE 400 MG TABLET PO SCH (10:00)
[2021-03-15] MEDS: PANTOPRAZOLE 40 MG TABLET PO SCH (10:00)
[2021-03-15] MEDS: CALCIUM (CARBONATE) 500 MG TABLET PO SCH (10:00)
[2021-03-15] MEDS: ENOXAPARIN 40 MG/0.4 ML SYRINGE SUBCUT SCH (10:00)
[2021-03-15] MEDS: INSULIN REGULAR 100 UNIT/ML SUBCUT SCH ×2 (11:23→14:03)
[2021-03-15 12:51] VITALS: BP 160/90
== END 2021-03-15 16:16 | disposition home or self-care (01) | DRG 424 ==
LOC: EDBD → EDUNIT# → N.ED 16:15 → N.EDINP 16:15 → N.TELEN 03-10 02:33 → SUATTDRO 03-10 13:14
PROVIDERS: ADMIT Internal Medicine; ATTEND Internal Medicine

== ENCOUNTER 2021-06-10 16:36 | Inpatient (IN) ==
[2021-06-10] MEDS ORDERED: ALBUTEROL/IPRATROPIUM 3 ML NEB RESP TX STA (16:49)
[2021-06-10 17:04] LABS: Basophils % 0.2 % (0.0-0.8); Hematocrit 30.3 VOL% (35.7-47.0); Hemoglobin 7.5 GM/DL (12.0-16.0); Immature Granulocytes Absolute 0.28 #; Lymphocytes # 0.8 10*3/uL (1.4-4.0); Lymphocytes % 8.2 % (21.3-54.2); Mean Corpuscular HGB Conc 24.8 GM/DL (32-36); Monocytes % 3.2 % (1.7-12.7); NRBC # 0.03 10*3/uL; Neutrophils % 85.4 % (38.7-73.9); Platelet Count 164 T/CUMM (130-400); Red Blood Count 3.74 MC/CUMM (3.8-5.5); Red Cell Distribution Width 17.9 % (9.3-17.3); White Blood Count 9.2 T/CUMM (4-12)
[2021-06-10 17:20] LABS: ABG Base Excess 10.4 MMOL/L (-2.5-2.5); ABG Oxygen Saturation 85.6 % (95-100); ABG PO2 59.5 MM HG (80-95); ABG TCO2 41.3 MMOL/L (23-27)
[2021-06-10 17:33] LABS: ABG PH 7.153 (7.35-7.45)
[2021-06-10 17:43] LABS: Albumin 3.4 G/DL (3.4-5.0); Bilirubin,Total 0.7 MG/DL (0.20-1.00); Calcium 8.5 MG/DL (8.5-10.1); Osmolality,Calculated 280.4 MOS/KG (273-304); Potassium 4.6 MMOL/L (3.5-5.1); Total Protein 8.5 G/DL (6.4-8.2)
[2021-06-10 18:08] LABS: Barbiturates Screen,Urine Negative (Negative); Benzodiazepines Screen,Urine Negative (Negative); Cannabinoid Screen,Urine Negative (Negative); Opiate Screen,Urine Negative (Negative); Phencyclidine Screen,Urine Negative (Negative)
[2021-06-10 18:13] LABS: Bilirubin,Urine Negative (Negative); Blood, Urine Small mg/dL (Negative); Glucose,Urine (UA) Negative (Negative); Hyaline Casts,Urine 6 /LPF (0-3); Ketones,Urine Negative (Negative); Mucus,Urine Occasional /LPF (Occasional); Nitrite,Urine Negative (Negative); Protein,Urine 100 MG/DL; RBC,Urine 4 /HPF (0-4); Squamous Epithelial Cell,Urine Occasional /HPF (0-10); Urine Appearance CLEAR (Clear); Urine Color Yellow (Yellow); Urine Specific Gravity 1.013 (1.001-1.035); Urine Urobilinogen < 2.0 EU/DL (0.2-1.0)
[2021-06-10] MEDS ORDERED: methylPREDNISolone SOD SUC 125 MG/2 ML VIAL IV STA (20:07)
[2021-06-10] MEDS ORDERED: FUROSEMIDE 40 MG/4 ML VIAL IV STA ×2 (20:09→20:43)
[2021-06-10] MEDS: cefTRIAXone 1,000 MG in SODIUM CHLORIDE 0.9% 100 ML IV SCH (20:14)
[2021-06-10] MEDS ORDERED: ALBUTEROL 2.5 MG/3 ML NEB RESP TX PRN (20:33)
[2021-06-10] MEDS ORDERED: GLUCAGON 1 MG VIAL IM PRN (20:38)
[2021-06-10] MEDS ORDERED: DEXTROSE 50% 25 GM/50 ML SYRINGE IV PRN (20:38)
[2021-06-10] MEDS: AZITHROMYCIN INJ 500 MG in SODIUM CHLORIDE 0.9% 250 ML IV SCH (20:42)
[2021-06-10] MEDS ORDERED: POTASSIUM CHLORIDE RIDER 10 MEQ/100 ML PREMIX IV PRN (20:55)
[2021-06-10] MEDS ORDERED: MAGNESIUM SULF RIDER 4 GM/100 ML PREMIX IV PRN (20:55)
[2021-06-10] MEDS ORDERED: MAGNESIUM SULF RIDER 2 GM/50 ML PREMIX IV PRN (20:55)
[2021-06-10] MEDS: ENOXAPARIN 40 MG/0.4 ML SYRINGE SUBCUT SCH (21:12)
[2021-06-10 21:45] LABS: ABG HCO3 35.7 MMOL/L (20-26); ABG Oxygen Saturation 94.9 % (95-100); ABG PO2 82.7 MM HG (80-95); ABG TCO2 42.4 MMOL/L (23-27)
[2021-06-10 21:53] LABS: ABG PH 7.171 (7.35-7.45)
[2021-06-10] MEDS: INSULIN LISPRO 100 UNIT/ML SUBCUT SCH (22:49)
[2021-06-10] MEDS ORDERED: PNEUMOCOCCAL VACCINE (23 VALENT) 0.5 ML VIAL IM ONE (23:33)
[2021-06-10] MEDS ORDERED: INFLUENZA VIRUS VACCINE 0.5 ML SYRINGE IM ONE (23:33)
[2021-06-11 03:24] LABS: ABG Base Excess 13.7 MMOL/L (-2.5-2.5); ABG HCO3 37.1 MMOL/L (20-26); ABG Oxygen Saturation 73.5 % (95-100); ABG PO2 46.4 MM HG (80-95); ABG TCO2 44.4 MMOL/L (23-27)
[2021-06-11 03:35] LABS: ABG PH 7.168 (7.35-7.45)
[2021-06-11 05:04] LABS: ABG Base Excess 17.1 MMOL/L (-2.5-2.5); ABG HCO3 47.5 MMOL/L (20-26); ABG Oxygen Saturation 78.2 % (95-100); ABG PH 7.215 (7.35-7.45); ABG PO2 47.1 MM HG (80-95); ABG TCO2 51.2 MMOL/L (23-27)
[2021-06-11 05:06] LABS: ABG PCO2 120.1 MM HG (35-48)
[2021-06-11 06:29] LABS: ABG Base Excess 13.9 MMOL/L (-2.5-2.5); ABG HCO3 37.7 MMOL/L (20-26); ABG Oxygen Saturation 97.6 % (95-100); ABG TCO2 43.3 MMOL/L (23-27)
[2021-06-11 06:53] LABS: Basophils % 0.3 % (0.0-0.8); Hematocrit 27.8 VOL% (35.7-47.0); Immature Granulocytes % 1.9 %; Immature Granulocytes Absolute 0.14 #; Lymphocytes # 0.5 10*3/uL (1.4-4.0); Lymphocytes % 7.2 % (21.3-54.2); Mean Corpuscular HGB Conc 25.2 GM/DL (32-36); Mean Corpuscular Volume 79.7 FL (87-102); Monocytes % 0.5 % (1.7-12.7); NRBC # 0.02 10*3/uL; Neutrophils % 90.1 % (38.7-73.9); Platelet Count 144 T/CUMM (130-400); Red Blood Count 3.49 MC/CUMM (3.8-5.5); Red Cell Distribution Width 18.2 % (9.3-17.3); White Blood Count 7.4 T/CUMM (4-12)
[2021-06-11 07:19] LABS: Hypochromasia 1+; Microcytosis 1+; Target Cells Slight
[2021-06-11 07:27] LABS: Alanine Aminotransferase < 9 U/L (13-56); Albumin 3.3 G/DL (3.4-5.0); Alkaline Phosphatase 119 U/L (45-117); Aspartate Amino Transferase 10 U/L (0-37); Blood Urea Nitrogen 20 MG/DL (7-18); Calcium 8.7 MG/DL (8.5-10.1); Carbon Dioxide 39 MMOL/L (21-32); Estimated Glom Filtration Rate 88 ML/MIN; Glucose 105 MG/DL (74-106); Potassium 4.6 MMOL/L (3.5-5.1); Sodium 136 MMOL/L (136-145); Thyroid Stimulating Hormone 0.064 uIU/ml (0.358-3.74); Total Protein 8.4 G/DL (6.4-8.2)
[2021-06-11] MEDS: FUROSEMIDE 40 MG/4 ML VIAL IV SCH ×2 (08:55→15:14)
[2021-06-11] MEDS: INSULIN LISPRO 100 UNIT/ML SUBCUT SCH ×4 (09:13→21:40)
[2021-06-11] MEDS: DOCUSATE SODIUM 100 MG CAPSULE PO PRN (09:17)
[2021-06-11] MEDS: THEOPHYLLINE ER (24 HR) 400 MG CAPSULE PO SCH (09:22)
[2021-06-11] MEDS: methylPREDNISolone SOD SUC 40 MG/1 ML VIAL IV SCH ×3 (09:22→22:00)
[2021-06-11] MEDS ORDERED: ALBUTEROL 2.5 MG/3 ML NEB RESP TX PRN (14:57)
[2021-06-11] MEDS ORDERED: SUBOXONE 8 MG/2 MG FILM SL SCH (15:00)
[2021-06-11] MEDS: ALBUTEROL/IPRATROPIUM 3 ML NEB RESP TX SCH ×2 (15:07→19:00)
[2021-06-11] MEDS: FERROUS SULFATE 325 MG TABLET PO SCH ×2 (15:16→20:34)
[2021-06-11] MEDS: SUBOXONE 8 MG/2 MG FILM SL SCH (20:12)
[2021-06-11] MEDS: cefTRIAXone 1,000 MG in SODIUM CHLORIDE 0.9% 100 ML IV SCH (20:20)
[2021-06-11] MEDS: AZITHROMYCIN INJ 500 MG in SODIUM CHLORIDE 0.9% 250 ML IV SCH (20:22)
[2021-06-11] MEDS: ENOXAPARIN 40 MG/0.4 ML SYRINGE SUBCUT SCH (20:32)
[2021-06-11] MEDS: carvediloL 12.5 MG TABLET PO SCH (20:34)
[2021-06-11] MEDS: MAGNESIUM OXIDE 400 MG TABLET PO SCH (20:34)
[2021-06-11] MEDS: PANTOPRAZOLE 40 MG TABLET PO SCH (20:35)
[2021-06-11] MEDS: CALCIUM (CARBONATE) 500 MG TABLET PO SCH (20:35)
[2021-06-11] MEDS ORDERED: NON-FORMULARY MEDICATION (Buprenorphine-Naloxone [Suboxone] 8-2 mg film) SL SCH (21:00)
[2021-06-12] MEDS: ALBUTEROL/IPRATROPIUM 3 ML NEB RESP TX SCH ×4 (00:51→19:46)
[2021-06-12] MEDS: methylPREDNISolone SOD SUC 40 MG/1 ML VIAL IV SCH ×4 (03:58→20:35)
[2021-06-12 06:02] LABS: Basophils % 0.1 % (0.0-0.8); Hematocrit 28.2 VOL% (35.7-47.0); Immature Granulocytes Absolute 0.08 #; Lymphocytes # 0.6 10*3/uL (1.4-4.0); Lymphocytes % 7.7 % (21.3-54.2); Mean Corpuscular HGB Conc 24.8 GM/DL (32-36); Mean Corpuscular Volume 78.6 FL (87-102); NRBC # 0.02 10*3/uL; Neutrophils % 89.2 % (38.7-73.9); Platelet Count 192 T/CUMM (130-400); Red Blood Count 3.59 MC/CUMM (3.8-5.5); Red Cell Distribution Width 18.8 % (9.3-17.3)
[2021-06-12 06:28] LABS: Anisocytosis 2+; Hypochromasia 2+; Platelet Estimate Normal
[2021-06-12 06:29] LABS: Macrocytosis Slight; Polychromasia Slight
[2021-06-12 06:31] LABS: Alanine Aminotransferase < 9 U/L (13-56); Albumin 3.4 G/DL (3.4-5.0); Alkaline Phosphatase 112 U/L (45-117); Aspartate Amino Transferase 13 U/L (0-37); Blood Urea Nitrogen 22 MG/DL (7-18); Calcium 8.6 MG/DL (8.5-10.1); Carbon Dioxide 45 MMOL/L (21-32); Estimated Glom Filtration Rate 79 ML/MIN; Glucose 120 MG/DL (74-106); Osmolality,Calculated 282.4 MOS/KG (273-304); Potassium 4.1 MMOL/L (3.5-5.1); Sodium 140 MMOL/L (136-145); Total Protein 8.5 G/DL (6.4-8.2)
[2021-06-12] MEDS: THEOPHYLLINE ER (24 HR) 400 MG CAPSULE PO SCH (08:17)
[2021-06-12] MEDS: FUROSEMIDE 40 MG/4 ML VIAL IV SCH ×2 (08:17→15:24)
[2021-06-12] MEDS: CALCIUM (CARBONATE) 500 MG TABLET PO SCH ×2 (08:18→20:35)
[2021-06-12] MEDS: MAGNESIUM OXIDE 400 MG TABLET PO SCH ×2 (08:18→20:36)
[2021-06-12] MEDS: DOCUSATE SODIUM 100 MG CAPSULE PO PRN (08:18)
[2021-06-12] MEDS: SERTRALINE 100 MG TABLET PO SCH (08:19)
[2021-06-12] MEDS: PANTOPRAZOLE 40 MG TABLET PO SCH ×2 (08:19→20:36)
[2021-06-12] MEDS: FERROUS SULFATE 325 MG TABLET PO SCH ×3 (08:19→20:35)
[2021-06-12] MEDS: ASPIRIN EC 81 MG TABLET PO SCH (08:19)
[2021-06-12] MEDS: carvediloL 12.5 MG TABLET PO SCH ×2 (08:19→20:36)
[2021-06-12] MEDS: INSULIN LISPRO 100 UNIT/ML SUBCUT SCH ×4 (08:20→20:03)
[2021-06-12] MEDS: SUBOXONE 8 MG/2 MG FILM SL SCH (08:20)
[2021-06-12] MEDS ORDERED: SODIUM CHLORIDE 0.9% 1,000 ML IV PRN (09:21)
[2021-06-12] MEDS: SUBOXONE FILM SL SCH ×2 (14:28→20:36)
[2021-06-12] MEDS: ENOXAPARIN 40 MG/0.4 ML SYRINGE SUBCUT SCH (20:32)
[2021-06-12] MEDS: cefTRIAXone 1,000 MG in SODIUM CHLORIDE 0.9% 100 ML IV SCH (20:32)
[2021-06-12] MEDS: AZITHROMYCIN INJ 500 MG in SODIUM CHLORIDE 0.9% 250 ML IV SCH (20:34)
[2021-06-13] MEDS: ALBUTEROL/IPRATROPIUM 3 ML NEB RESP TX SCH ×4 (00:43→19:11)
[2021-06-13] MEDS: methylPREDNISolone SOD SUC 40 MG/1 ML VIAL IV SCH ×4 (03:08→21:50)
[2021-06-13 05:30] LABS: Hematocrit 29.6 VOL% (35.7-47.0); Immature Granulocytes % 0.9 %; Immature Granulocytes Absolute 0.08 #; Lymphocytes # 0.9 10*3/uL (1.4-4.0); Lymphocytes % 10.7 % (21.3-54.2); Mean Corpuscular HGB Conc 25.7 GM/DL (32-36); Mean Corpuscular Volume 78.1 FL (87-102); Monocytes % 4.3 % (1.7-12.7); NRBC # 0.03 10*3/uL; Neutrophils % 84.1 % (38.7-73.9); Platelet Count 170 T/CUMM (130-400); Red Blood Count 3.79 MC/CUMM (3.8-5.5); Red Cell Distribution Width 17.9 % (9.3-17.3); White Blood Count 8.5 T/CUMM (4-12)
[2021-06-13 05:35] LABS: Hemoglobin 7.6 GM/DL (12.0-16.0)
[2021-06-13 05:47] LABS: Alanine Aminotransferase < 9 U/L (13-56); Albumin 3.2 G/DL (3.4-5.0); Alkaline Phosphatase 99 U/L (45-117); Aspartate Amino Transferase 12 U/L (0-37); Bilirubin,Direct < 0.100 MG/DL (0.0-0.20); Bilirubin,Indirect 0.8 MG/DL (0.0-1.0); Free T4 (Free Thyroxine) 0.95 NG/DL (0.76-1.46)
[2021-06-13 06:28] LABS: Alanine Aminotransferase < 6 U/L (13-56); Albumin 3.3 G/DL (3.4-5.0); Alkaline Phosphatase 102 U/L (45-117); Aspartate Amino Transferase 12 U/L (0-37); Blood Urea Nitrogen 27 MG/DL (7-18); Calcium 9.3 MG/DL (8.5-10.1); Carbon Dioxide 49 MMOL/L (21-32); Estimated Glom Filtration Rate 86 ML/MIN; Glucose 132 MG/DL (74-106); Potassium 3.9 MMOL/L (3.5-5.1); Sodium 136 MMOL/L (136-145); Total Protein 7.8 G/DL (6.4-8.2)
[2021-06-13] MEDS: ASPIRIN EC 81 MG TABLET PO SCH (08:57)
[2021-06-13] MEDS: THEOPHYLLINE ER (24 HR) 400 MG CAPSULE PO SCH (08:57)
[2021-06-13] MEDS: PANTOPRAZOLE 40 MG TABLET PO SCH ×2 (08:58→21:47)
[2021-06-13] MEDS: carvediloL 12.5 MG TABLET PO SCH ×2 (08:58→21:47)
[2021-06-13] MEDS: FERROUS SULFATE 325 MG TABLET PO SCH ×3 (08:58→21:46)
[2021-06-13] MEDS: CALCIUM (CARBONATE) 500 MG TABLET PO SCH ×2 (08:58→21:47)
[2021-06-13] MEDS: MAGNESIUM OXIDE 400 MG TABLET PO SCH ×2 (08:58→21:47)
[2021-06-13] MEDS: SUBOXONE FILM SL SCH ×3 (08:59→21:55)
[2021-06-13] MEDS: FUROSEMIDE 40 MG/4 ML VIAL IV SCH ×2 (08:59→16:22)
[2021-06-13] MEDS: SERTRALINE 100 MG TABLET PO SCH (09:08)
[2021-06-13] MEDS: INSULIN LISPRO 100 UNIT/ML SUBCUT SCH ×4 (09:51→21:05)
[2021-06-13] MEDS: PROMETHAZINE 25 MG/1 ML VIAL IM PRN (14:07)
[2021-06-13] MEDS: amLODIPine 10 MG TABLET PO SCH (16:21)
[2021-06-13 16:40] LABS: ABG Base Excess 27.6 MMOL/L (-2.5-2.5); ABG HCO3 55.4 MMOL/L (20-26); ABG PH 7.455 (7.35-7.45); ABG PO2 73.3 MM HG (80-95); ABG TCO2 57.9 MMOL/L (23-27); Allen Test Positive; Pt O2 Delivery Device Other
[2021-06-13 16:48] LABS: ABG PCO2 80.6 MM HG (35-48)
[2021-06-13] MEDS: MELATONIN 3 MG TABLET PO PRN (21:47)
[2021-06-13] MEDS: cefTRIAXone 1,000 MG in SODIUM CHLORIDE 0.9% 100 ML IV SCH (21:51)
[2021-06-13] MEDS: AZITHROMYCIN INJ 500 MG in SODIUM CHLORIDE 0.9% 250 ML IV SCH (21:54)
[2021-06-13] MEDS: ENOXAPARIN 40 MG/0.4 ML SYRINGE SUBCUT SCH (21:55)
[2021-06-14] MEDS: methylPREDNISolone SOD SUC 40 MG/1 ML VIAL IV SCH ×4 (03:50→21:26)
[2021-06-14 04:25] LABS: ABG Base Excess 24.3 MMOL/L (-2.5-2.5); ABG HCO3 54.1 MMOL/L (20-26); ABG PH 7.448 (7.35-7.45); ABG PO2 99.3 MM HG (80-95); ABG TCO2 56.6 MMOL/L (23-27)
[2021-06-14 04:27] LABS: ABG Oxygen Saturation 97.4 % (95-100)
[2021-06-14 05:16] LABS: Calcium 9.1 MG/DL (8.5-10.1); Osmolality,Calculated 278.4 MOS/KG (273-304); Potassium 3.6 MMOL/L (3.5-5.1)
[2021-06-14] MEDS: PROMETHAZINE 25 MG/1 ML VIAL IM PRN (05:23)
[2021-06-14 05:49] LABS: Hematocrit 31.4 VOL% (35.7-47.0); Immature Granulocytes % 0.9 %; Immature Granulocytes Absolute 0.07 #; Lymphocytes # 0.8 10*3/uL (1.4-4.0); Lymphocytes % 9.9 % (21.3-54.2); Mean Corpuscular HGB Conc 26.8 GM/DL (32-36); Mean Corpuscular Volume 75.5 FL (87-102); Monocytes % 4.4 % (1.7-12.7); NRBC # 0.05 10*3/uL; Neutrophils % 84.8 % (38.7-73.9); Platelet Count 171 T/CUMM (130-400); Red Blood Count 4.16 MC/CUMM (3.8-5.5); Red Cell Distribution Width 18.1 % (9.3-17.3); White Blood Count 8.1 T/CUMM (4-12)
[2021-06-14 05:51] LABS: Hemoglobin 8.4 GM/DL (12.0-16.0)
[2021-06-14 05:58] LABS: Anisocytosis 1+; Hypochromasia 2+; Microcytosis 1+
[2021-06-14 05:59] LABS: Ovalocytes Slight; Platelet Estimate Adequate; Polychromasia Slight; Tear Drop Cells Few
[2021-06-14] MEDS: ALBUTEROL/IPRATROPIUM 3 ML NEB RESP TX SCH ×4 (08:15→19:49)
[2021-06-14] MEDS: THEOPHYLLINE ER (24 HR) 400 MG CAPSULE PO SCH (09:21)
[2021-06-14] MEDS: FERROUS SULFATE 325 MG TABLET PO SCH ×3 (09:21→21:27)
[2021-06-14] MEDS: MAGNESIUM OXIDE 400 MG TABLET PO SCH ×2 (09:21→21:27)
[2021-06-14] MEDS: SERTRALINE 100 MG TABLET PO SCH (09:22)
[2021-06-14] MEDS: carvediloL 12.5 MG TABLET PO SCH ×2 (09:22→21:27)
[2021-06-14] MEDS: LOSARTAN 50 MG TABLET PO SCH (09:22)
[2021-06-14] MEDS: amLODIPine 10 MG TABLET PO SCH (09:23)
[2021-06-14] MEDS: CALCIUM (CARBONATE) 500 MG TABLET PO SCH ×2 (09:23→21:27)
[2021-06-14] MEDS: PANTOPRAZOLE 40 MG TABLET PO SCH ×2 (09:23→21:27)
[2021-06-14] MEDS: FUROSEMIDE 40 MG/4 ML VIAL IV SCH ×2 (09:26→15:56)
[2021-06-14] MEDS: INSULIN LISPRO 100 UNIT/ML SUBCUT SCH ×4 (09:59→21:26)
[2021-06-14] MEDS: SUBOXONE FILM SL SCH ×3 (10:00→21:27)
[2021-06-14] MEDS: ASPIRIN EC 81 MG TABLET PO SCH (10:01)
[2021-06-14] MEDS: MELATONIN 3 MG TABLET PO PRN (21:26)
[2021-06-14] MEDS: ENOXAPARIN 40 MG/0.4 ML SYRINGE SUBCUT SCH (21:26)
[2021-06-14] MEDS: GABAPENTIN 100 MG CAPSULE PO SCH (21:27)
[2021-06-15] MEDS: ALBUTEROL/IPRATROPIUM 3 ML NEB RESP TX SCH ×4 (00:38→20:39)
[2021-06-15] MEDS: methylPREDNISolone SOD SUC 40 MG/1 ML VIAL IV SCH ×2 (03:30→16:10)
[2021-06-15 04:53] LABS: Hematocrit 33.7 VOL% (35.7-47.0); Immature Granulocytes % 0.5 %; Immature Granulocytes Absolute 0.04 #; Lymphocytes # 1.1 10*3/uL (1.4-4.0); Lymphocytes % 12.6 % (21.3-54.2); Mean Corpuscular HGB Conc 26.7 GM/DL (32-36); Mean Corpuscular Volume 76.1 FL (87-102); Monocytes % 5.6 % (1.7-12.7); NRBC # 0.04 10*3/uL; Neutrophils % 81.3 % (38.7-73.9); Platelet Count 184 T/CUMM (130-400); Red Blood Count 4.43 MC/CUMM (3.8-5.5); Red Cell Distribution Width 17.9 % (9.3-17.3); White Blood Count 8.4 T/CUMM (4-12)
[2021-06-15 05:05] LABS: Calcium 9.2 MG/DL (8.5-10.1); Osmolality,Calculated 272.8 MOS/KG (273-304); Potassium 3.7 MMOL/L (3.5-5.1)
[2021-06-15 05:21] LABS: Hypochromasia 2+
[2021-06-15 05:22] LABS: Anisocytosis 1+; Microcytosis 1+; Platelet Estimate Adequate; Polychromasia Slight; Target Cells Slight
[2021-06-15 05:23] LABS: Stomatocytes Slight
[2021-06-15] MEDS: INSULIN LISPRO 100 UNIT/ML SUBCUT SCH ×4 (08:29→20:40)
[2021-06-15] MEDS: PROMETHAZINE 25 MG/1 ML VIAL IM PRN ×2 (09:21→20:41)
[2021-06-15] MEDS: ASPIRIN EC 81 MG TABLET PO SCH (09:22)
[2021-06-15] MEDS: THEOPHYLLINE ER (24 HR) 400 MG CAPSULE PO SCH (09:22)
[2021-06-15] MEDS: LOSARTAN 50 MG TABLET PO SCH (09:23)
[2021-06-15] MEDS: FERROUS SULFATE 325 MG TABLET PO SCH ×3 (09:23→20:40)
[2021-06-15] MEDS: CALCIUM (CARBONATE) 500 MG TABLET PO SCH ×2 (09:23→20:39)
[2021-06-15] MEDS: carvediloL 12.5 MG TABLET PO SCH ×2 (09:23→20:40)
[2021-06-15] MEDS: PANTOPRAZOLE 40 MG TABLET PO SCH ×2 (09:23→20:40)
[2021-06-15] MEDS: amLODIPine 10 MG TABLET PO SCH (09:24)
[2021-06-15] MEDS: GABAPENTIN 100 MG CAPSULE PO SCH ×2 (09:24→20:40)
[2021-06-15] MEDS: MAGNESIUM OXIDE 400 MG TABLET PO SCH ×2 (09:25→20:39)
[2021-06-15] MEDS: SERTRALINE 100 MG TABLET PO SCH (09:25)
[2021-06-15] MEDS: FUROSEMIDE 40 MG/4 ML VIAL IV SCH ×2 (09:26→16:12)
[2021-06-15] MEDS: SUBOXONE FILM SL SCH ×3 (09:26→20:39)
[2021-06-15 13:48] LABS: ABG Base Excess 20.9 MMOL/L (-2.5-2.5); ABG HCO3 45.3 MMOL/L (20-26); ABG PH 7.429 (7.35-7.45); ABG PO2 66.5 MM HG (80-95); ABG TCO2 45.1 MMOL/L (23-27); Allen Test Positive; Pt O2 Delivery Device Other
[2021-06-15 13:51] LABS: ABG PCO2 74.4 MM HG (35-48)
[2021-06-15] MEDS: hydrALAZINE 25 MG TABLET PO SCH (20:39)
[2021-06-15] MEDS: MELATONIN 3 MG TABLET PO PRN (20:40)
[2021-06-15] MEDS: ENOXAPARIN 40 MG/0.4 ML SYRINGE SUBCUT SCH (20:40)
[2021-06-16] MEDS: ALBUTEROL/IPRATROPIUM 3 ML NEB RESP TX SCH ×4 (00:36→19:58)
[2021-06-16] MEDS: methylPREDNISolone SOD SUC 40 MG/1 ML VIAL IV SCH ×2 (03:14→14:30)
[2021-06-16 04:20] LABS: ABG Base Excess 22.8 MMOL/L (-2.5-2.5); ABG Oxygen Saturation 85.5 % (95-100); ABG PH 7.452 (7.35-7.45); ABG PO2 51.5 MM HG (80-95); ABG TCO2 52.3 MMOL/L (23-27)
[2021-06-16 04:23] LABS: ABG PCO2 73.3 MM HG (35-48)
[2021-06-16 07:36] LABS: Calcium 8.8 MG/DL (8.5-10.1); Osmolality,Calculated 283.4 MOS/KG (273-304); Potassium 3.8 MMOL/L (3.5-5.1)
[2021-06-16] MEDS: INSULIN LISPRO 100 UNIT/ML SUBCUT SCH ×4 (07:40→20:58)
[2021-06-16] MEDS: amLODIPine 10 MG TABLET PO SCH (09:16)
[2021-06-16] MEDS: FERROUS SULFATE 325 MG TABLET PO SCH ×3 (09:18→20:59)
[2021-06-16] MEDS: CALCIUM (CARBONATE) 500 MG TABLET PO SCH ×2 (09:18→20:59)
[2021-06-16] MEDS: GABAPENTIN 100 MG CAPSULE PO SCH ×2 (09:18→20:58)
[2021-06-16] MEDS: LOSARTAN 50 MG TABLET PO SCH (09:18)
[2021-06-16] MEDS: carvediloL 12.5 MG TABLET PO SCH ×2 (09:18→20:59)
[2021-06-16] MEDS: MAGNESIUM OXIDE 400 MG TABLET PO SCH ×2 (09:18→20:59)
[2021-06-16] MEDS: SERTRALINE 100 MG TABLET PO SCH (09:18)
[2021-06-16] MEDS: PANTOPRAZOLE 40 MG TABLET PO SCH ×2 (09:18→20:59)
[2021-06-16] MEDS: THEOPHYLLINE ER (24 HR) 400 MG CAPSULE PO SCH (09:19)
[2021-06-16] MEDS: ASPIRIN EC 81 MG TABLET PO SCH (09:19)
[2021-06-16] MEDS: hydrALAZINE 25 MG TABLET PO SCH ×2 (09:19→20:59)
[2021-06-16] MEDS: SUBOXONE FILM SL SCH ×2 (09:20→14:20)
[2021-06-16] MEDS: FUROSEMIDE 40 MG/4 ML VIAL IV SCH ×2 (09:20→16:43)
[2021-06-16] MEDS: ACETAMINOPHEN 325 MG TABLET PO PRN ×2 (13:14→21:00)
[2021-06-16] MEDS: ENOXAPARIN 40 MG/0.4 ML SYRINGE SUBCUT SCH (20:58)
[2021-06-16] MEDS: MELATONIN 3 MG TABLET PO PRN (20:59)
[2021-06-16] MEDS: PROMETHAZINE 25 MG/1 ML VIAL IM PRN (21:25)
[2021-06-17] MEDS: SUBOXONE FILM SL SCH ×4 (00:56→22:04)
[2021-06-17] MEDS: ALBUTEROL/IPRATROPIUM 3 ML NEB RESP TX SCH ×4 (01:57→20:40)
[2021-06-17 05:22] LABS: ABG Base Excess 21.1 MMOL/L (-2.5-2.5); ABG HCO3 47.8 MMOL/L (20-26); ABG Oxygen Saturation 96.3 % (95-100); ABG PCO2 67.2 MM HG (35-48); ABG PO2 82.5 MM HG (80-95); ABG TCO2 49.9 MMOL/L (23-27)
[2021-06-17] MEDS: INSULIN LISPRO 100 UNIT/ML SUBCUT SCH ×4 (07:55→21:53)
[2021-06-17] MEDS: amLODIPine 10 MG TABLET PO SCH (10:13)
[2021-06-17] MEDS: MAGNESIUM OXIDE 400 MG TABLET PO SCH ×2 (10:13→21:52)
[2021-06-17] MEDS: hydrALAZINE 25 MG TABLET PO SCH ×2 (10:14→21:52)
[2021-06-17] MEDS: THEOPHYLLINE ER (24 HR) 400 MG CAPSULE PO SCH (10:14)
[2021-06-17] MEDS: FERROUS SULFATE 325 MG TABLET PO SCH ×3 (10:14→21:52)
[2021-06-17] MEDS: CALCIUM (CARBONATE) 500 MG TABLET PO SCH ×2 (10:14→21:52)
[2021-06-17] MEDS: LOSARTAN 50 MG TABLET PO SCH (10:14)
[2021-06-17] MEDS: GABAPENTIN 100 MG CAPSULE PO SCH ×2 (10:14→21:52)
[2021-06-17] MEDS: SERTRALINE 100 MG TABLET PO SCH (10:14)
[2021-06-17] MEDS: FUROSEMIDE 40 MG/4 ML VIAL IV SCH ×2 (10:14→15:34)
[2021-06-17] MEDS: ASPIRIN EC 81 MG TABLET PO SCH (10:15)
[2021-06-17] MEDS: PANTOPRAZOLE 40 MG TABLET PO SCH ×2 (10:15→21:52)
[2021-06-17] MEDS: carvediloL 12.5 MG TABLET PO SCH ×2 (10:15→21:52)
[2021-06-17] MEDS: methylPREDNISolone SOD SUC 40 MG/1 ML VIAL IV SCH (15:35)
[2021-06-17] MEDS: MELATONIN 3 MG TABLET PO PRN (21:52)
[2021-06-17] MEDS: ENOXAPARIN 40 MG/0.4 ML SYRINGE SUBCUT SCH (21:53)
[2021-06-18] MEDS: ALBUTEROL/IPRATROPIUM 3 ML NEB RESP TX SCH ×4 (00:56→20:25)
[2021-06-18 03:23] LABS: ABG Base Excess 17.1 MMOL/L (-2.5-2.5); ABG HCO3 41.2 MMOL/L (20-26); ABG Oxygen Saturation 98.7 % (95-100); ABG PH 7.407 (7.35-7.45); ABG TCO2 41.5 MMOL/L (23-27)
[2021-06-18 03:25] LABS: ABG PCO2 71.6 MM HG (35-48)
[2021-06-18 06:36] LABS: Hematocrit 33.2 VOL% (35.7-47.0); Immature Granulocytes % 0.5 %; Immature Granulocytes Absolute 0.07 #; Lymphocytes # 1.4 10*3/uL (1.4-4.0); Mean Corpuscular HGB Conc 26.5 GM/DL (32-36); Mean Corpuscular Volume 74.6 FL (87-102); Monocytes % 3.3 % (1.7-12.7); Neutrophils % 85.2 % (38.7-73.9); Platelet Count 125 T/CUMM (130-400); Red Blood Count 4.45 MC/CUMM (3.8-5.5); Red Cell Distribution Width 18.3 % (9.3-17.3); White Blood Count 12.8 T/CUMM (4-12)
[2021-06-18 06:37] LABS: Hemoglobin 8.8 GM/DL (12.0-16.0)
[2021-06-18 06:55] LABS: Calcium 8.9 MG/DL (8.5-10.1); Osmolality,Calculated 289.4 MOS/KG (273-304); Potassium 3.3 MMOL/L (3.5-5.1)
[2021-06-18] MEDS ORDERED: POTASSIUM CHLORIDE 20 MEQ TABLET PO PRN (08:12)
[2021-06-18] MEDS: INSULIN LISPRO 100 UNIT/ML SUBCUT SCH ×4 (08:53→21:20)
[2021-06-18] MEDS: FUROSEMIDE 40 MG/4 ML VIAL IV SCH ×3 (10:30→11:32)
[2021-06-18] MEDS: CALCIUM (CARBONATE) 500 MG TABLET PO SCH ×2 (10:53→21:12)
[2021-06-18] MEDS: hydrALAZINE 25 MG TABLET PO SCH ×2 (10:54→21:12)
[2021-06-18] MEDS: PANTOPRAZOLE 40 MG TABLET PO SCH ×2 (10:54→21:12)
[2021-06-18] MEDS: MAGNESIUM OXIDE 400 MG TABLET PO SCH ×2 (10:54→21:12)
[2021-06-18] MEDS: THEOPHYLLINE ER (24 HR) 400 MG CAPSULE PO SCH (10:54)
[2021-06-18] MEDS: ASPIRIN EC 81 MG TABLET PO SCH (10:54)
[2021-06-18] MEDS: LOSARTAN 50 MG TABLET PO SCH (10:54)
[2021-06-18] MEDS: amLODIPine 10 MG TABLET PO SCH (10:55)
[2021-06-18] MEDS: carvediloL 12.5 MG TABLET PO SCH ×2 (10:55→21:12)
[2021-06-18] MEDS: SERTRALINE 100 MG TABLET PO SCH (10:55)
[2021-06-18] MEDS: FERROUS SULFATE 325 MG TABLET PO SCH ×3 (10:55→21:12)
[2021-06-18] MEDS: GABAPENTIN 100 MG CAPSULE PO SCH ×2 (10:55→21:12)
[2021-06-18] MEDS: SUBOXONE FILM SL SCH ×3 (11:00→23:21)
[2021-06-18] MEDS: methylPREDNISolone SOD SUC 40 MG/1 ML VIAL IV SCH (16:49)
[2021-06-18] MEDS: ACETAMINOPHEN 325 MG TABLET PO PRN (16:49)
[2021-06-18] MEDS: MELATONIN 3 MG TABLET PO PRN (21:12)
[2021-06-18] MEDS: ENOXAPARIN 40 MG/0.4 ML SYRINGE SUBCUT SCH (21:13)
[2021-06-19] MEDS: ALBUTEROL/IPRATROPIUM 3 ML NEB RESP TX SCH ×4 (02:00→19:37)
[2021-06-19 05:27] LABS: Albumin 3.6 G/DL (3.4-5.0); Bilirubin,Total 0.9 MG/DL (0.20-1.00); Calcium 8.7 MG/DL (8.5-10.1); Osmolality,Calculated 291.4 MOS/KG (273-304); Potassium 3.7 MMOL/L (3.5-5.1); Total Protein 8.1 G/DL (6.4-8.2)
[2021-06-19 05:53] LABS: Basophils % 0.1 % (0.0-0.8); Hematocrit 33.6 VOL% (35.7-47.0); Hemoglobin 9.2 GM/DL (12.0-16.0); Immature Granulocytes % 0.4 %; Immature Granulocytes Absolute 0.06 #; Lymphocytes # 1.1 10*3/uL (1.4-4.0); Lymphocytes % 7.7 % (21.3-54.2); Mean Corpuscular HGB Conc 27.4 GM/DL (32-36); Mean Corpuscular Volume 76.5 FL (87-102); Monocytes % 1.9 % (1.7-12.7); NRBC # 0.02 10*3/uL; Neutrophils % 89.9 % (38.7-73.9); Platelet Count 137 T/CUMM (130-400); Red Blood Count 4.39 MC/CUMM (3.8-5.5); White Blood Count 13.7 T/CUMM (4-12)
[2021-06-19 06:07] LABS: Hypochromasia 2+
[2021-06-19 06:08] LABS: Anisocytosis 1+; Microcytosis 1+; Platelet Estimate Adequate; Polychromasia Slight; Stomatocytes Slight; Tear Drop Cells Slight
[2021-06-19 09:30] LABS: ABG Base Excess 14.3 MMOL/L (-2.5-2.5); ABG HCO3 38.2 MMOL/L (20-26); ABG Oxygen Saturation 97.2 % (95-100); ABG PCO2 68.8 MM HG (35-48); ABG PH 7.394 (7.35-7.45); ABG PO2 93.2 MM HG (80-95); ABG TCO2 38.7 MMOL/L (23-27)
[2021-06-19] MEDS: INSULIN LISPRO 100 UNIT/ML SUBCUT SCH ×4 (09:37→21:30)
[2021-06-19] MEDS: PANTOPRAZOLE 40 MG TABLET PO SCH ×2 (09:38→21:29)
[2021-06-19] MEDS: FERROUS SULFATE 325 MG TABLET PO SCH ×3 (09:38→21:29)
[2021-06-19] MEDS: GABAPENTIN 100 MG CAPSULE PO SCH ×2 (09:38→21:26)
[2021-06-19] MEDS: LOSARTAN 50 MG TABLET PO SCH (09:38)
[2021-06-19] MEDS: CALCIUM (CARBONATE) 500 MG TABLET PO SCH ×2 (09:38→21:27)
[2021-06-19] MEDS: THEOPHYLLINE ER (24 HR) 400 MG CAPSULE PO SCH (09:39)
[2021-06-19] MEDS: MAGNESIUM OXIDE 400 MG TABLET PO SCH ×2 (09:39→21:26)
[2021-06-19] MEDS: carvediloL 12.5 MG TABLET PO SCH ×2 (09:39→21:28)
[2021-06-19] MEDS: hydrALAZINE 25 MG TABLET PO SCH ×2 (09:39→21:29)
[2021-06-19] MEDS: amLODIPine 10 MG TABLET PO SCH (09:39)
[2021-06-19] MEDS: SERTRALINE 100 MG TABLET PO SCH (09:40)
[2021-06-19] MEDS: ASPIRIN EC 81 MG TABLET PO SCH (09:40)
[2021-06-19] MEDS: SUBOXONE FILM SL SCH ×3 (09:40→23:28)
[2021-06-19] MEDS: FUROSEMIDE 40 MG/4 ML VIAL IV SCH (09:41)
[2021-06-19 15:28] LABS: ABG Base Excess 13.2 MMOL/L (-2.5-2.5); ABG HCO3 36.9 MMOL/L (20-26); ABG Oxygen Saturation 93.8 % (95-100); ABG PCO2 66.2 MM HG (35-48); ABG PH 7.394 (7.35-7.45); ABG PO2 71.5 MM HG (80-95); ABG TCO2 37.6 MMOL/L (23-27)
[2021-06-19] MEDS: MELATONIN 3 MG TABLET PO PRN (21:27)
[2021-06-19] MEDS: ACETAMINOPHEN 325 MG TABLET PO PRN (21:28)
[2021-06-19] MEDS: ENOXAPARIN 40 MG/0.4 ML SYRINGE SUBCUT SCH (21:29)
[2021-06-20] MEDS: ALBUTEROL/IPRATROPIUM 3 ML NEB RESP TX SCH ×4 (01:00→20:52)
[2021-06-20 05:43] LABS: Calcium 8.6 MG/DL (8.5-10.1); Potassium 2.9 MMOL/L (3.5-5.1)
[2021-06-20] MEDS ORDERED: methylPREDNISolone SOD SUC 40 MG/1 ML VIAL IV SCH (09:00)
[2021-06-20] MEDS: INSULIN LISPRO 100 UNIT/ML SUBCUT SCH ×3 (11:00→18:24)
[2021-06-20] MEDS: MAGNESIUM OXIDE 400 MG TABLET PO SCH ×2 (11:01→20:31)
[2021-06-20] MEDS: CALCIUM (CARBONATE) 500 MG TABLET PO SCH ×2 (11:01→20:31)
[2021-06-20] MEDS: hydrALAZINE 25 MG TABLET PO SCH ×2 (11:02→21:42)
[2021-06-20] MEDS: FERROUS SULFATE 325 MG TABLET PO SCH ×3 (11:02→20:31)
[2021-06-20] MEDS: amLODIPine 10 MG TABLET PO SCH (11:02)
[2021-06-20] MEDS: LOSARTAN 50 MG TABLET PO SCH (11:02)
[2021-06-20] MEDS: ASPIRIN EC 81 MG TABLET PO SCH (11:02)
[2021-06-20] MEDS: SUBOXONE FILM SL SCH ×2 (11:03→18:23)
[2021-06-20] MEDS: THEOPHYLLINE ER (24 HR) 400 MG CAPSULE PO SCH (11:03)
[2021-06-20] MEDS: SERTRALINE 100 MG TABLET PO SCH (11:03)
[2021-06-20] MEDS: PANTOPRAZOLE 40 MG TABLET PO SCH ×2 (11:03→20:31)
[2021-06-20] MEDS: carvediloL 12.5 MG TABLET PO SCH ×2 (11:03→21:42)
[2021-06-20] MEDS: GABAPENTIN 100 MG CAPSULE PO SCH (11:04)
[2021-06-20] MEDS ORDERED: SODIUM CHLORIDE 0.9% 1,000 ML IV SCH (13:30)
[2021-06-20] MEDS ORDERED: POTASSIUM CHLORIDE 20 MEQ TABLET PO ONE (15:22)
[2021-06-20] MEDS: PROMETHAZINE 25 MG/1 ML VIAL IM PRN (18:00)
[2021-06-20] MEDS: MELATONIN 3 MG TABLET PO PRN (20:32)
[2021-06-20] MEDS: ENOXAPARIN 40 MG/0.4 ML SYRINGE SUBCUT SCH (20:32)
[2021-06-21] MEDS: ALBUTEROL/IPRATROPIUM 3 ML NEB RESP TX SCH ×4 (01:05→20:51)
[2021-06-21] MEDS: GABAPENTIN 100 MG CAPSULE PO SCH ×3 (05:44→22:56)
[2021-06-21] MEDS: INSULIN LISPRO 100 UNIT/ML SUBCUT SCH ×5 (05:44→21:57)
[2021-06-21] MEDS: SUBOXONE FILM SL SCH ×4 (05:44→22:57)
[2021-06-21 06:44] LABS: Calcium 8.8 MG/DL (8.5-10.1); Osmolality,Calculated 286.2 MOS/KG (273-304); Potassium 3.1 MMOL/L (3.5-5.1)
[2021-06-21 08:05] LABS: Eosinophils % 0.1 % (0.00-10.9); Hematocrit 33.2 VOL% (35.7-47.0); Immature Granulocytes % 0.4 %; Immature Granulocytes Absolute 0.03 #; Lymphocytes # 1.9 10*3/uL (1.4-4.0); Lymphocytes % 24.3 % (21.3-54.2); Mean Corpuscular HGB Conc 25.9 GM/DL (32-36); Mean Corpuscular Volume 76.3 FL (87-102); Monocytes % 7.3 % (1.7-12.7); Neutrophils % 67.9 % (38.7-73.9); Platelet Count 145 T/CUMM (130-400); Red Blood Count 4.35 MC/CUMM (3.8-5.5); Red Cell Distribution Width 19.8 % (9.3-17.3); White Blood Count 7.7 T/CUMM (4-12)
[2021-06-21 08:06] LABS: Hemoglobin 8.6 GM/DL (12.0-16.0)
[2021-06-21] MEDS ORDERED: POTASSIUM CHLORIDE 20 MEQ TABLET PO ONE (08:12)
[2021-06-21] MEDS: SERTRALINE 100 MG TABLET PO SCH (09:11)
[2021-06-21] MEDS: hydrALAZINE 25 MG TABLET PO SCH ×2 (09:12→21:58)
[2021-06-21] MEDS: CALCIUM (CARBONATE) 500 MG TABLET PO SCH ×2 (09:13→21:57)
[2021-06-21] MEDS: FERROUS SULFATE 325 MG TABLET PO SCH ×3 (09:13→21:58)
[2021-06-21] MEDS: PANTOPRAZOLE 40 MG TABLET PO SCH ×2 (09:14→21:58)
[2021-06-21] MEDS: amLODIPine 10 MG TABLET PO SCH (09:14)
[2021-06-21] MEDS: LOSARTAN 50 MG TABLET PO SCH (09:14)
[2021-06-21] MEDS: ASPIRIN EC 81 MG TABLET PO SCH (09:14)
[2021-06-21] MEDS: carvediloL 12.5 MG TABLET PO SCH ×2 (09:14→21:58)
[2021-06-21] MEDS: MAGNESIUM OXIDE 400 MG TABLET PO SCH ×2 (09:14→21:58)
[2021-06-21] MEDS: THEOPHYLLINE ER (24 HR) 400 MG CAPSULE PO SCH (09:15)
[2021-06-21] MEDS ORDERED: FUROSEMIDE 40 MG/4 ML VIAL IV SCH (16:00)
[2021-06-21] MEDS: FUROSEMIDE 20 MG TABLET PO SCH (16:30)
[2021-06-21] MEDS: ENOXAPARIN 40 MG/0.4 ML SYRINGE SUBCUT SCH (21:57)
[2021-06-22] MEDS: ALBUTEROL/IPRATROPIUM 3 ML NEB RESP TX SCH ×4 (00:10→20:00)
[2021-06-22] MEDS: INSULIN LISPRO 100 UNIT/ML SUBCUT SCH ×4 (08:00→22:45)
[2021-06-22] MEDS: FERROUS SULFATE 325 MG TABLET PO SCH ×3 (10:04→21:05)
[2021-06-22] MEDS: carvediloL 12.5 MG TABLET PO SCH ×2 (10:04→21:05)
[2021-06-22] MEDS: FUROSEMIDE 20 MG TABLET PO SCH ×2 (10:04→15:55)
[2021-06-22] MEDS: amLODIPine 10 MG TABLET PO SCH (10:04)
[2021-06-22] MEDS: SERTRALINE 100 MG TABLET PO SCH (10:05)
[2021-06-22] MEDS: MAGNESIUM OXIDE 400 MG TABLET PO SCH ×2 (10:05→21:05)
[2021-06-22] MEDS: hydrALAZINE 25 MG TABLET PO SCH ×2 (10:05→22:45)
[2021-06-22] MEDS: THEOPHYLLINE ER (24 HR) 400 MG CAPSULE PO SCH (10:05)
[2021-06-22] MEDS: ASPIRIN EC 81 MG TABLET PO SCH (10:05)
[2021-06-22] MEDS: PANTOPRAZOLE 40 MG TABLET PO SCH ×2 (10:05→21:05)
[2021-06-22] MEDS: GABAPENTIN 100 MG CAPSULE PO SCH ×2 (10:05→22:45)
[2021-06-22] MEDS: CALCIUM (CARBONATE) 500 MG TABLET PO SCH ×2 (10:31→21:05)
[2021-06-22] MEDS: SUBOXONE FILM SL SCH ×3 (10:31→22:45)
[2021-06-22] MEDS: ISOSORBIDE MONONITRATE 30 MG TABLET PO SCH (15:55)
[2021-06-22] MEDS: ACETAMINOPHEN 325 MG TABLET PO PRN ×2 (17:17→21:06)
[2021-06-22] MEDS: MELATONIN 3 MG TABLET PO PRN (21:04)
[2021-06-22] MEDS: ENOXAPARIN 40 MG/0.4 ML SYRINGE SUBCUT SCH (21:04)
[2021-06-23] MEDS: ALBUTEROL/IPRATROPIUM 3 ML NEB RESP TX SCH ×4 (00:58→19:00)
[2021-06-23 06:48] LABS: Calcium 9.2 MG/DL (8.5-10.1); Osmolality,Calculated 281.1 MOS/KG (273-304); Potassium 3.4 MMOL/L (3.5-5.1)
[2021-06-23 06:55] LABS: Hematocrit 32.2 VOL% (35.7-47.0); Hemoglobin 8.6 GM/DL (12.0-16.0); Immature Granulocytes % 0.3 %; Immature Granulocytes Absolute 0.02 #; Lymphocytes # 1.4 10*3/uL (1.4-4.0); Lymphocytes % 24.4 % (21.3-54.2); Mean Corpuscular HGB Conc 26.7 GM/DL (32-36); Mean Corpuscular Volume 75.8 FL (87-102); Monocytes % 7.6 % (1.7-12.7); Neutrophils % 67.7 % (38.7-73.9); Red Blood Count 4.25 MC/CUMM (3.8-5.5); Red Cell Distribution Width 19.9 % (9.3-17.3); White Blood Count 5.9 T/CUMM (4-12)
[2021-06-23 06:57] LABS: Platelet Count 222 T/CUMM (130-400)
[2021-06-23 07:03] LABS: Hypochromasia 2+; Microcytosis 1+
[2021-06-23 07:04] LABS: Ovalocytes Slight; Platelet Estimate Normal
[2021-06-23] MEDS: hydrALAZINE 25 MG TABLET PO SCH ×2 (10:07→21:01)
[2021-06-23] MEDS: GABAPENTIN 100 MG CAPSULE PO SCH ×2 (10:07→21:06)
[2021-06-23] MEDS: ASPIRIN EC 81 MG TABLET PO SCH (10:07)
[2021-06-23] MEDS: FERROUS SULFATE 325 MG TABLET PO SCH ×3 (10:07→21:02)
[2021-06-23] MEDS: PANTOPRAZOLE 40 MG TABLET PO SCH ×2 (10:07→21:02)
[2021-06-23] MEDS: THEOPHYLLINE ER (24 HR) 400 MG CAPSULE PO SCH (10:07)
[2021-06-23] MEDS: SERTRALINE 100 MG TABLET PO SCH (10:07)
[2021-06-23] MEDS: MAGNESIUM OXIDE 400 MG TABLET PO SCH ×2 (10:08→21:02)
[2021-06-23] MEDS: amLODIPine 10 MG TABLET PO SCH (10:08)
[2021-06-23] MEDS: CALCIUM (CARBONATE) 500 MG TABLET PO SCH ×2 (10:09→21:00)
[2021-06-23] MEDS: ISOSORBIDE MONONITRATE 30 MG TABLET PO SCH (10:09)
[2021-06-23] MEDS: carvediloL 12.5 MG TABLET PO SCH ×2 (10:09→21:03)
[2021-06-23] MEDS: FUROSEMIDE 20 MG TABLET PO SCH ×2 (10:09→16:55)
[2021-06-23] MEDS: INSULIN LISPRO 100 UNIT/ML SUBCUT SCH ×4 (10:52→21:06)
[2021-06-23] MEDS: SUBOXONE FILM SL SCH ×3 (10:52→21:01)
[2021-06-23] MEDS: POTASSIUM CHLORIDE 20 MEQ TABLET PO SCH (21:01)
[2021-06-23] MEDS: ENOXAPARIN 40 MG/0.4 ML SYRINGE SUBCUT SCH (21:03)
[2021-06-23] MEDS: MELATONIN 3 MG TABLET PO PRN (21:07)
[2021-06-24] MEDS: ALBUTEROL/IPRATROPIUM 3 ML NEB RESP TX SCH ×3 (00:45→13:40)
[2021-06-24] MEDS: PROMETHAZINE 25 MG/1 ML VIAL IM PRN (00:59)
[2021-06-24] MEDS: INSULIN LISPRO 100 UNIT/ML SUBCUT SCH ×3 (08:06→16:46)
[2021-06-24] MEDS ORDERED: ALUMINUM/MAGNES/SIMETH MAX STR 30 ML UDCUP PO PRN (08:10)
[2021-06-24] MEDS: FUROSEMIDE 20 MG TABLET PO SCH ×2 (09:07→16:46)
[2021-06-24] MEDS: PANTOPRAZOLE 40 MG TABLET PO SCH (09:07)
[2021-06-24] MEDS: THEOPHYLLINE ER (24 HR) 400 MG CAPSULE PO SCH (09:07)
[2021-06-24] MEDS: FERROUS SULFATE 325 MG TABLET PO SCH ×2 (09:07→14:15)
[2021-06-24] MEDS: hydrALAZINE 25 MG TABLET PO SCH (09:08)
[2021-06-24] MEDS: amLODIPine 10 MG TABLET PO SCH (09:08)
[2021-06-24] MEDS: SERTRALINE 100 MG TABLET PO SCH (09:08)
[2021-06-24] MEDS: ISOSORBIDE MONONITRATE 30 MG TABLET PO SCH (09:08)
[2021-06-24] MEDS: CALCIUM (CARBONATE) 500 MG TABLET PO SCH (09:08)
[2021-06-24] MEDS: carvediloL 12.5 MG TABLET PO SCH (09:08)
[2021-06-24] MEDS: POTASSIUM CHLORIDE 20 MEQ TABLET PO SCH (09:08)
[2021-06-24] MEDS: ASPIRIN EC 81 MG TABLET PO SCH (09:08)
[2021-06-24] MEDS: MAGNESIUM OXIDE 400 MG TABLET PO SCH (09:08)
[2021-06-24] MEDS: SUBOXONE FILM SL SCH ×2 (09:09→14:15)
[2021-06-24] MEDS: GABAPENTIN 100 MG CAPSULE PO SCH (09:09)
[2021-06-24 12:23] VITALS: BP 102/53
== END 2021-06-24 17:23 | disposition home health service (06) | DRG 194 ==
LOC: EDUNIT# → EDBD → N.ED 16:36 → N.EDINP 20:09 → SUATTDRO 20:09 → N.ICU 22:33 → N.TELEN 06-12 17:27
PROVIDERS: ADMIT Family Medicine; ATTEND Emergency Medicine

== ENCOUNTER 2021-08-20 19:37 | Inpatient (IN) ==
[2021-08-20] MEDS ORDERED: ACETAMINOPHEN 500 MG TABLET PO STA (20:12)
[2021-08-20] MEDS ORDERED: SODIUM CHLORIDE 0.9% 1,000 ML IV STA (20:12)
[2021-08-20 22:08] LABS: Albumin 2.9 G/DL (3.4-5.0); Bilirubin,Total 0.4 MG/DL (0.20-1.00); Osmolality,Calculated 270.8 MOS/KG (273-304); Potassium 4.1 MMOL/L (3.5-5.1); Total Protein 8.5 G/DL (6.4-8.2)
[2021-08-20 22:14] LABS: Calcium 5.7 MG/DL (8.5-10.1)
[2021-08-20 22:17] LABS: Basophils % 0.2 % (0.0-0.8); Hematocrit 27.6 VOL% (35.7-47.0); Hemoglobin 7.7 GM/DL (12.0-16.0); Immature Granulocytes % 0.5 %; Immature Granulocytes Absolute 0.02 #; Lymphocytes # 1.5 10*3/uL (1.4-4.0); Lymphocytes % 35.3 % (21.3-54.2); Mean Corpuscular HGB Conc 27.9 GM/DL (32-36); Mean Corpuscular Volume 70.1 FL (87-102); Monocytes % 8.9 % (1.7-12.7); NRBC # 0.02 10*3/uL; Neutrophils % 55.1 % (38.7-73.9); Platelet Count 132 T/CUMM (130-400); Red Blood Count 3.94 MC/CUMM (3.8-5.5); Red Cell Distribution Width 21.7 % (9.3-17.3); White Blood Count 4.3 T/CUMM (4-12)
[2021-08-20] MEDS ORDERED: DEXAMETHASONE 10 MG/1 ML VIAL IV STA (22:32)
[2021-08-20] MEDS ORDERED: CALCIUM GLUCONATE 2,000 MG in SODIUM CHLORIDE 0.9% 100 ML IV ONE (22:32)
[2021-08-20] MEDS ORDERED: cefTRIAXone 1,000 MG in SODIUM CHLORIDE 0.9% 100 ML IV STA (22:32)
[2021-08-20] MEDS ORDERED: PROMETHAZINE 25 MG/1 ML VIAL IM STA (23:02)
[2021-08-21] MEDS ORDERED: REMDESIVIR 200 MG in SODIUM CHLORIDE 0.9% 210 ML IV ONE
[2021-08-21] MEDS: AZITHROMYCIN INJ 500 MG in SODIUM CHLORIDE 0.9% 250 ML IV SCH ×2 (01:25→23:02)
[2021-08-21] MEDS ORDERED: SIMETHICONE CHEW 125 MG TABLET PO PRN (01:58)
[2021-08-21] MEDS ORDERED: GLUCAGON 1 MG VIAL IM PRN (01:58)
[2021-08-21] MEDS ORDERED: hydrALAZINE 20 MG/1 ML VIAL IV PRN (01:58)
[2021-08-21] MEDS ORDERED: ACETAMINOPHEN 325 MG TABLET PO PRN (01:58)
[2021-08-21] MEDS ORDERED: DEXTROSE 10% 250 ML BAG IV PRN ×2 (02:07→13:30)
[2021-08-21] MEDS: SODIUM CHLORIDE 0.9% 1,000 ML IV SCH ×2 (03:03→13:00)
[2021-08-21 05:42] LABS: Basophils % 0.2 % (0.0-0.8); Hematocrit 29.3 VOL% (35.7-47.0); Immature Granulocytes % 0.5 %; Immature Granulocytes Absolute 0.02 #; Lymphocytes # 0.6 10*3/uL (1.4-4.0); Mean Corpuscular HGB Conc 27.3 GM/DL (32-36); Mean Corpuscular Volume 72.2 FL (87-102); Monocytes % 1.5 % (1.7-12.7); Neutrophils % 83.8 % (38.7-73.9); Platelet Count 127 T/CUMM (130-400); Red Blood Count 4.06 MC/CUMM (3.8-5.5); Red Cell Distribution Width 21.3 % (9.3-17.3); White Blood Count 4.1 T/CUMM (4-12)
[2021-08-21 06:03] LABS: Hypochromia Slight; Microcytosis 1+; Platelet Estimate Normal
[2021-08-21 06:10] LABS: Thyroid Stimulating Hormone 0.163 uIU/ml (0.358-3.74)
[2021-08-21 06:42] LABS: Alanine Aminotransferase 14 U/L (13-56); Alkaline Phosphatase 96 U/L (45-117); Aspartate Amino Transferase 45 U/L (0-37); Bilirubin,Total < 0.39 MG/DL (0.20-1.00); Blood Urea Nitrogen 6 MG/DL (7-18); Calcium 6.3 MG/DL (8.5-10.1); Carbon Dioxide 27 MMOL/L (21-32); Estimated Glom Filtration Rate 75 ML/MIN; Glucose 139 MG/DL (74-106); Osmolality,Calculated 276.5 MOS/KG (273-304); Potassium 4.4 MMOL/L (3.5-5.1); Sodium 139 MMOL/L (136-145); Total Protein 8.8 G/DL (6.4-8.2)
[2021-08-21 07:42] LABS: INR 1.1; PT Patient Result 12.1 SECS (10.5-12.0); Partial Thromboplastin Time 31.1 SECS (23.8-32.1)
[2021-08-21 08:09] LABS: ABG Base Excess 1.8 MMOL/L (-2.5-2.5); ABG HCO3 28.9 MMOL/L (20-26); ABG Oxygen Saturation 95.4 % (95-100); ABG PCO2 60.9 MM HG (35-48); ABG PH 7.294 (7.35-7.45); ABG PO2 86.8 MM HG (80-95); ABG TCO2 30.8 MMOL/L (23-27)
[2021-08-21 08:10] LABS: Allen Test Positive
[2021-08-21] MEDS: REMDESIVIR 100 MG in SODIUM CHLORIDE 0.9% 100 ML IV SCH (08:30)
[2021-08-21] MEDS: PANTOPRAZOLE 40 MG TABLET PO SCH ×2 (11:29→21:05)
[2021-08-21] MEDS: DOCUSATE SODIUM 100 MG CAPSULE PO SCH ×2 (11:29→20:52)
[2021-08-21 12:08] LABS: Ferritin 216.4 ng/mL (8-252)
[2021-08-21] MEDS: INSULIN REGULAR 100 UNIT/ML SUBCUT SCH ×4 (12:25→21:32)
[2021-08-21] MEDS ORDERED: ONDANSETRON 4 MG TABLET PO PRN (13:40)
[2021-08-21] MEDS: ZINC GLUCONATE 50 MG TABLET PO SCH (14:07)
[2021-08-21] MEDS: ASCORBIC ACID 500 MG TABLET PO SCH ×2 (14:07→21:03)
[2021-08-21] MEDS: CHOLECALCIFEROL 1,000 UNIT TABLET PO SCH (14:07)
[2021-08-21] MEDS ORDERED: ALBUTEROL INHALER 18 GM INH PRN (14:24)
[2021-08-21] MEDS: PROMETHAZINE 25 MG TABLET PO PRN ×2 (14:40→21:33)
[2021-08-21] MEDS: DEXAMETHASONE 10 MG/1 ML VIAL IV SCH (14:44)
[2021-08-21 14:49] LABS: % Iron Saturation 11.6 % (18-50)
[2021-08-21] MEDS ORDERED: CALCIUM GLUCONATE 2,000 MG in SODIUM CHLORIDE 0.9% 100 ML IV ONE (15:00)
[2021-08-21] MEDS: ENOXAPARIN 40 MG/0.4 ML SYRINGE SUBCUT SCH (17:11)
[2021-08-21] MEDS: amLODIPine 10 MG TABLET PO SCH (17:13)
[2021-08-21] MEDS: SERTRALINE 100 MG TABLET PO SCH (17:13)
[2021-08-21] MEDS: FERROUS SULFATE 325 MG TABLET PO SCH ×2 (17:14→20:54)
[2021-08-21] MEDS: FUROSEMIDE 20 MG TABLET PO SCH (17:14)
[2021-08-21] MEDS: THEOPHYLLINE 400 MG PO SCH (17:15)
[2021-08-21 17:53] LABS: Folate 11.24 NG/ML (5.38-24.0)
[2021-08-21] MEDS: GABAPENTIN 100 MG CAPSULE PO SCH (20:51)
[2021-08-21] MEDS: carvediloL 12.5 MG TABLET PO SCH (20:52)
[2021-08-21] MEDS: MAGNESIUM OXIDE 400 MG TABLET PO SCH (20:53)
[2021-08-21] MEDS: CALCIUM (CARBONATE) 500 MG TABLET PO SCH (20:53)
[2021-08-21] MEDS: POTASSIUM CHLORIDE 20 MEQ TABLET PO SCH (20:53)
[2021-08-22] MEDS: cefTRIAXone 1,000 MG in SODIUM CHLORIDE 0.9% 100 ML IV SCH ×2 (00:17→23:11)
[2021-08-22] MEDS: SODIUM CHLORIDE 0.9% 1,000 ML IV SCH ×3 (06:22→18:43)
[2021-08-22 06:51] LABS: Calcium 6.4 MG/DL (8.5-10.1); Osmolality,Calculated 276.5 MOS/KG (273-304); Potassium 4.3 MMOL/L (3.5-5.1)
[2021-08-22 06:53] LABS: Ferritin 218.5 ng/mL (8-252)
[2021-08-22 06:54] LABS: Alanine Aminotransferase 11 U/L (13-56); Albumin 2.8 G/DL (3.4-5.0); Alkaline Phosphatase 89 U/L (45-117); Aspartate Amino Transferase 27 U/L (0-37); Bilirubin,Total < 0.39 MG/DL (0.20-1.00); Blood Urea Nitrogen 7 MG/DL (7-18); Calcium 6.7 MG/DL (8.5-10.1); Carbon Dioxide 29 MMOL/L (21-32); Estimated Glom Filtration Rate 82 ML/MIN; Glucose 131 MG/DL (74-106); Osmolality,Calculated 276.5 MOS/KG (273-304); Potassium 4.2 MMOL/L (3.5-5.1); Sodium 139 MMOL/L (136-145); Total Protein 8.3 G/DL (6.4-8.2)
[2021-08-22 07:03] LABS: Basophils % 0.3 % (0.0-0.8); Hematocrit 27.9 VOL% (35.7-47.0); Immature Granulocytes % 0.3 %; Immature Granulocytes Absolute 0.01 #; Lymphocytes % 25.9 % (21.3-54.2); Mean Corpuscular HGB Conc 27.6 GM/DL (32-36); Mean Corpuscular Volume 70.8 FL (87-102); Monocytes % 8.4 % (1.7-12.7); Neutrophils % 65.1 % (38.7-73.9); Platelet Count 135 T/CUMM (130-400); Red Blood Count 3.94 MC/CUMM (3.8-5.5); Red Cell Distribution Width 21.9 % (9.3-17.3); White Blood Count 3.8 T/CUMM (4-12)
[2021-08-22 07:04] LABS: Hemoglobin 7.7 GM/DL (12.0-16.0)
[2021-08-22] MEDS ORDERED: amLODIPine 10 MG TABLET PO SCH (09:00)
[2021-08-22] MEDS: SERTRALINE 100 MG TABLET PO SCH (10:16)
[2021-08-22] MEDS: ASCORBIC ACID 500 MG TABLET PO SCH ×2 (10:16→20:36)
[2021-08-22] MEDS: PANTOPRAZOLE 40 MG TABLET PO SCH ×3 (10:16→20:36)
[2021-08-22] MEDS: ASPIRIN EC 81 MG TABLET PO SCH (10:17)
[2021-08-22] MEDS: CHOLECALCIFEROL 1,000 UNIT TABLET PO SCH (10:17)
[2021-08-22] MEDS: ISOSORBIDE MONONITRATE 30 MG TABLET PO SCH (10:17)
[2021-08-22] MEDS: FUROSEMIDE 20 MG TABLET PO SCH ×2 (10:17→16:28)
[2021-08-22] MEDS: amLODIPine 10 MG TABLET PO SCH (10:17)
[2021-08-22] MEDS: GABAPENTIN 100 MG CAPSULE PO SCH ×2 (10:17→20:37)
[2021-08-22] MEDS: PROMETHAZINE 25 MG TABLET PO PRN ×3 (10:18→20:46)
[2021-08-22] MEDS: CALCIUM (CARBONATE) 500 MG TABLET PO SCH ×2 (10:18→20:36)
[2021-08-22] MEDS: ZINC GLUCONATE 50 MG TABLET PO SCH (10:18)
[2021-08-22] MEDS: carvediloL 12.5 MG TABLET PO SCH ×2 (10:18→20:37)
[2021-08-22] MEDS: MAGNESIUM OXIDE 400 MG TABLET PO SCH ×2 (10:19→20:36)
[2021-08-22] MEDS: POTASSIUM CHLORIDE 20 MEQ TABLET PO SCH ×2 (10:19→20:36)
[2021-08-22] MEDS: FERROUS SULFATE 325 MG TABLET PO SCH ×3 (10:19→20:38)
[2021-08-22] MEDS: DEXAMETHASONE 10 MG/1 ML VIAL IV SCH (10:19)
[2021-08-22] MEDS: DOCUSATE SODIUM 100 MG CAPSULE PO SCH ×2 (10:20→20:34)
[2021-08-22] MEDS ORDERED: FERRIC GLUCONATE COMPLEX 125 MG in SODIUM CHLORIDE 0.9% 100 ML IV ONE (10:22)
[2021-08-22] MEDS ORDERED: MAGNESIUM SULF RIDER 2 GM/50 ML PREMIX IV ONE (10:34)
[2021-08-22] MEDS: REMDESIVIR 100 MG in SODIUM CHLORIDE 0.9% 100 ML IV SCH (13:10)
[2021-08-22] MEDS: CETIRIZINE 10 MG TABLET PO SCH (13:12)
[2021-08-22] MEDS: INSULIN REGULAR 100 UNIT/ML SUBCUT SCH ×4 (13:38→20:45)
[2021-08-22] MEDS: THEOPHYLLINE 400 MG PO SCH (13:50)
[2021-08-22] MEDS ORDERED: CALCIUM GLUCONATE 2,000 MG in SODIUM CHLORIDE 0.9% 100 ML IV ONE ×2 (15:00→21:00)
[2021-08-22] MEDS: ENOXAPARIN 40 MG/0.4 ML SYRINGE SUBCUT SCH (16:29)
[2021-08-22] MEDS: MELATONIN 3 MG TABLET PO PRN (20:37)
[2021-08-23] MEDS: AZITHROMYCIN INJ 500 MG in SODIUM CHLORIDE 0.9% 250 ML IV SCH (01:40)
[2021-08-23] MEDS: SODIUM CHLORIDE 0.9% 1,000 ML IV SCH ×3 (04:36→14:26)
[2021-08-23 07:18] LABS: Alanine Aminotransferase < 6 U/L (13-56); Albumin 2.9 G/DL (3.4-5.0); Alkaline Phosphatase 86 U/L (45-117); Aspartate Amino Transferase 27 U/L (0-37); Bilirubin,Total < 0.39 MG/DL (0.20-1.00); Blood Urea Nitrogen 9 MG/DL (7-18); Calcium 7.4 MG/DL (8.5-10.1); Carbon Dioxide 27 MMOL/L (21-32); Estimated Glom Filtration Rate 67 ML/MIN; Glucose 110 MG/DL (74-106); Osmolality,Calculated 272.8 MOS/KG (273-304); Potassium 3.8 MMOL/L (3.5-5.1); Sodium 137 MMOL/L (136-145); Total Protein 8.3 G/DL (6.4-8.2)
[2021-08-23 07:29] LABS: Eosinophils % 0.2 % (0.00-10.9); Hematocrit 27.5 VOL% (35.7-47.0); Hemoglobin 7.7 GM/DL (12.0-16.0); Immature Granulocytes % 0.2 %; Immature Granulocytes Absolute 0.01 #; Lymphocytes # 1.5 10*3/uL (1.4-4.0); Lymphocytes % 28.4 % (21.3-54.2); Mean Corpuscular Volume 70.7 FL (87-102); Monocytes % 7.3 % (1.7-12.7); Neutrophils % 63.9 % (38.7-73.9); Platelet Count 165 T/CUMM (130-400); Red Blood Count 3.89 MC/CUMM (3.8-5.5); Red Cell Distribution Width 22.3 % (9.3-17.3); White Blood Count 5.2 T/CUMM (4-12)
[2021-08-23] MEDS: INSULIN REGULAR 100 UNIT/ML SUBCUT SCH ×4 (07:36→22:30)
[2021-08-23 07:47] LABS: Hypochromia 2+; Microcytosis 1+; Ovalocytes Slight; Tear Drop Cells Slight
[2021-08-23 07:48] LABS: Platelet Estimate Adequate
[2021-08-23] MEDS: REMDESIVIR 100 MG in SODIUM CHLORIDE 0.9% 100 ML IV SCH (08:22)
[2021-08-23] MEDS: DEXAMETHASONE 10 MG/1 ML VIAL IV SCH (08:25)
[2021-08-23] MEDS: DOCUSATE SODIUM 100 MG CAPSULE PO SCH ×2 (08:25→21:32)
[2021-08-23] MEDS: CHOLECALCIFEROL 1,000 UNIT TABLET PO SCH (08:25)
[2021-08-23] MEDS: ISOSORBIDE MONONITRATE 30 MG TABLET PO SCH (08:25)
[2021-08-23] MEDS: carvediloL 12.5 MG TABLET PO SCH ×2 (08:25→21:33)
[2021-08-23] MEDS: PROMETHAZINE 25 MG TABLET PO PRN ×3 (08:25→20:09)
[2021-08-23] MEDS: ZINC GLUCONATE 50 MG TABLET PO SCH (08:25)
[2021-08-23] MEDS: POTASSIUM CHLORIDE 20 MEQ TABLET PO SCH ×2 (08:26→21:32)
[2021-08-23] MEDS: amLODIPine 10 MG TABLET PO SCH (08:26)
[2021-08-23] MEDS: MAGNESIUM OXIDE 400 MG TABLET PO SCH ×2 (08:26→21:33)
[2021-08-23] MEDS: CETIRIZINE 10 MG TABLET PO SCH (08:26)
[2021-08-23] MEDS: FERROUS SULFATE 325 MG TABLET PO SCH ×3 (08:26→21:33)
[2021-08-23] MEDS: FUROSEMIDE 20 MG TABLET PO SCH ×2 (08:26→18:02)
[2021-08-23] MEDS: CALCIUM (CARBONATE) 500 MG TABLET PO SCH ×2 (08:26→21:32)
[2021-08-23] MEDS: ASCORBIC ACID 500 MG TABLET PO SCH ×2 (08:26→21:33)
[2021-08-23] MEDS: SERTRALINE 100 MG TABLET PO SCH (08:27)
[2021-08-23] MEDS: ASPIRIN EC 81 MG TABLET PO SCH (08:27)
[2021-08-23] MEDS: GABAPENTIN 100 MG CAPSULE PO SCH ×2 (08:27→21:34)
[2021-08-23] MEDS: PANTOPRAZOLE 40 MG TABLET PO SCH ×3 (08:27→21:32)
[2021-08-23] MEDS: THEOPHYLLINE 400 MG PO SCH (14:26)
[2021-08-23] MEDS: ENOXAPARIN 40 MG/0.4 ML SYRINGE SUBCUT SCH (14:43)
[2021-08-23] MEDS: MELATONIN 3 MG TABLET PO PRN (20:09)
[2021-08-23] MEDS ORDERED: ERTAPENEM 1,000 MG in SODIUM CHLORIDE 0.9% 100 ML IV SCH (21:00)
[2021-08-23] MEDS: SIMETHICONE CHEW 125 MG TABLET PO SCH (21:33)
[2021-08-23] MEDS: METHENAMINE HIPPURATE 1 GM TABLET PO SCH (21:34)
[2021-08-23] MEDS: POLYETHYLENE GLYCOL POWDER 17 GM PACK PO SCH (21:38)
[2021-08-24 06:55] LABS: Albumin 2.9 G/DL (3.4-5.0); Bilirubin,Total 0.8 MG/DL (0.20-1.00); Calcium 6.9 MG/DL (8.5-10.1); Osmolality,Calculated 278.5 MOS/KG (273-304); Potassium 3.7 MMOL/L (3.5-5.1); Total Protein 8.3 G/DL (6.4-8.2)
[2021-08-24] MEDS: INSULIN REGULAR 100 UNIT/ML SUBCUT SCH ×4 (07:52→21:42)
[2021-08-24] MEDS: carvediloL 12.5 MG TABLET PO SCH ×2 (09:15→20:40)
[2021-08-24] MEDS: SERTRALINE 100 MG TABLET PO SCH (09:15)
[2021-08-24] MEDS: GABAPENTIN 100 MG CAPSULE PO SCH ×2 (09:15→20:38)
[2021-08-24] MEDS: LINACLOTIDE 145 MCG CAPSULE PO SCH (09:15)
[2021-08-24] MEDS: CALCIUM (CARBONATE) 500 MG TABLET PO SCH ×2 (09:15→20:38)
[2021-08-24] MEDS: FUROSEMIDE 20 MG TABLET PO SCH ×2 (09:15→15:50)
[2021-08-24] MEDS: ASCORBIC ACID 500 MG TABLET PO SCH ×2 (09:15→20:38)
[2021-08-24] MEDS: METHENAMINE HIPPURATE 1 GM TABLET PO SCH ×2 (09:15→20:39)
[2021-08-24] MEDS: POTASSIUM CHLORIDE 20 MEQ TABLET PO SCH ×2 (09:15→20:39)
[2021-08-24] MEDS: FERROUS SULFATE 325 MG TABLET PO SCH ×2 (09:15→14:13)
[2021-08-24] MEDS: ZINC GLUCONATE 50 MG TABLET PO SCH (09:15)
[2021-08-24] MEDS: ASPIRIN EC 81 MG TABLET PO SCH (09:16)
[2021-08-24] MEDS: ISOSORBIDE MONONITRATE 30 MG TABLET PO SCH (09:16)
[2021-08-24] MEDS: CHOLECALCIFEROL 1,000 UNIT TABLET PO SCH (09:16)
[2021-08-24] MEDS: PROMETHAZINE 25 MG TABLET PO PRN (09:16)
[2021-08-24] MEDS: CETIRIZINE 10 MG TABLET PO SCH (09:16)
[2021-08-24] MEDS: DOCUSATE SODIUM 100 MG CAPSULE PO SCH ×2 (09:16→21:42)
[2021-08-24] MEDS: amLODIPine 10 MG TABLET PO SCH (09:16)
[2021-08-24] MEDS: POLYETHYLENE GLYCOL POWDER 17 GM PACK PO SCH ×2 (09:16→20:45)
[2021-08-24] MEDS: MAGNESIUM OXIDE 400 MG TABLET PO SCH ×2 (09:16→20:39)
[2021-08-24] MEDS: DEXAMETHASONE 10 MG/1 ML VIAL IV SCH (09:17)
[2021-08-24] MEDS: SODIUM CHLORIDE 0.9% 1,000 ML IV SCH (09:17)
[2021-08-24] MEDS: PANTOPRAZOLE 40 MG TABLET PO SCH ×3 (09:18→20:40)
[2021-08-24] MEDS: THEOPHYLLINE 400 MG PO SCH (09:18)
[2021-08-24] MEDS: SIMETHICONE CHEW 125 MG TABLET PO SCH ×4 (09:18→20:39)
[2021-08-24] MEDS: REMDESIVIR 100 MG in SODIUM CHLORIDE 0.9% 100 ML IV SCH (09:19)
[2021-08-24] MEDS: ENOXAPARIN 40 MG/0.4 ML SYRINGE SUBCUT SCH (13:44)
[2021-08-24] MEDS: LEVOFLOXACIN INJ 750 MG/150 ML PREMIX IV SCH (17:58)
[2021-08-25] MEDS: PROMETHAZINE 25 MG TABLET PO PRN ×2 (04:42→20:25)
[2021-08-25] MEDS: CHOLECALCIFEROL 1,000 UNIT TABLET PO SCH (08:40)
[2021-08-25] MEDS: carvediloL 12.5 MG TABLET PO SCH ×2 (08:40→20:26)
[2021-08-25] MEDS: ISOSORBIDE MONONITRATE 30 MG TABLET PO SCH (08:40)
[2021-08-25] MEDS: ASPIRIN EC 81 MG TABLET PO SCH (08:40)
[2021-08-25] MEDS: METHENAMINE HIPPURATE 1 GM TABLET PO SCH ×2 (08:40→20:25)
[2021-08-25] MEDS: MAGNESIUM OXIDE 400 MG TABLET PO SCH (08:40)
[2021-08-25] MEDS: ASCORBIC ACID 500 MG TABLET PO SCH ×2 (08:40→20:25)
[2021-08-25] MEDS: PANTOPRAZOLE 40 MG TABLET PO SCH ×2 (08:41→20:25)
[2021-08-25] MEDS: SERTRALINE 100 MG TABLET PO SCH (08:41)
[2021-08-25] MEDS: GABAPENTIN 100 MG CAPSULE PO SCH ×2 (08:41→20:26)
[2021-08-25] MEDS: POTASSIUM CHLORIDE 20 MEQ TABLET PO SCH (08:41)
[2021-08-25] MEDS: CETIRIZINE 10 MG TABLET PO SCH (08:41)
[2021-08-25] MEDS: amLODIPine 10 MG TABLET PO SCH (08:41)
[2021-08-25] MEDS: CALCIUM (CARBONATE) 500 MG TABLET PO SCH ×2 (08:41→20:25)
[2021-08-25] MEDS: ZINC GLUCONATE 50 MG TABLET PO SCH (08:41)
[2021-08-25] MEDS: DOCUSATE SODIUM 100 MG CAPSULE PO SCH (08:41)
[2021-08-25] MEDS: FUROSEMIDE 40 MG TABLET PO SCH ×2 (08:41→15:09)
[2021-08-25] MEDS: SIMETHICONE CHEW 125 MG TABLET PO SCH ×4 (08:41→20:26)
[2021-08-25] MEDS: DEXAMETHASONE 10 MG/1 ML VIAL IV SCH (08:42)
[2021-08-25] MEDS: LINACLOTIDE 145 MCG CAPSULE PO SCH (08:43)
[2021-08-25 08:57] LABS: Alanine Aminotransferase 24 U/L (13-56); Albumin 2.9 G/DL (3.4-5.0); Alkaline Phosphatase 82 U/L (45-117); Aspartate Amino Transferase 52 U/L (0-37); Bilirubin,Total < 0.39 MG/DL (0.20-1.00); Blood Urea Nitrogen 16 MG/DL (7-18); Calcium 7.3 MG/DL (8.5-10.1); Carbon Dioxide 29 MMOL/L (21-32); Estimated Glom Filtration Rate 74 ML/MIN; Glucose 92 MG/DL (74-106); Osmolality,Calculated 281.3 MOS/KG (273-304); Potassium 3.8 MMOL/L (3.5-5.1); Sodium 141 MMOL/L (136-145); Total Protein 8.4 G/DL (6.4-8.2)
[2021-08-25] MEDS: INSULIN REGULAR 100 UNIT/ML SUBCUT SCH ×4 (09:04→20:26)
[2021-08-25 09:05] LABS: Eosinophils % 0.2 % (0.00-10.9); Hematocrit 29.3 VOL% (35.7-47.0); Hemoglobin 8.1 GM/DL (12.0-16.0); Immature Granulocytes % 0.7 %; Immature Granulocytes Absolute 0.03 #; Lymphocytes # 1.8 10*3/uL (1.4-4.0); Lymphocytes % 39.7 % (21.3-54.2); Mean Corpuscular HGB Conc 27.6 GM/DL (32-36); Mean Corpuscular Volume 69.6 FL (87-102); Monocytes % 8.4 % (1.7-12.7); NRBC # 0.02 10*3/uL; Platelet Count 177 T/CUMM (130-400); Red Blood Count 4.21 MC/CUMM (3.8-5.5); Red Cell Distribution Width 21.9 % (9.3-17.3); White Blood Count 4.4 T/CUMM (4-12)
[2021-08-25] MEDS: THEOPHYLLINE 400 MG PO SCH (09:15)
[2021-08-25] MEDS: POLYETHYLENE GLYCOL POWDER 17 GM PACK PO SCH (09:15)
[2021-08-25 09:22] LABS: Anisocytosis 1+; Eosinophils 1 % (0-10); Hypochromia 1+; Lymphocytes 39 % (20-55); Ovalocytes Few; Platelet Estimate Normal; Poikilocytosis Slight; Segmented Neutrophils 55 % (50-85); Tear Drop Cells Few; Total Cells Counted 100
[2021-08-25] MEDS: ENOXAPARIN 40 MG/0.4 ML SYRINGE SUBCUT SCH ×2 (12:44→14:29)
[2021-08-25] MEDS: LEVOFLOXACIN INJ 750 MG/150 ML PREMIX IV SCH (15:44)
[2021-08-25] MEDS: MELATONIN 3 MG TABLET PO PRN (20:25)
[2021-08-26] MEDS: POTASSIUM CHLORIDE 20 MEQ TABLET PO SCH ×3 (01:54→21:16)
[2021-08-26] MEDS: CHOLESTYRAMINE 4 GM PACK PO SCH ×3 (01:55→10:00)
[2021-08-26 05:12] LABS: Calcium 7.9 MG/DL (8.5-10.1); Osmolality,Calculated 270.2 MOS/KG (273-304); Potassium 4.1 MMOL/L (3.5-5.1)
[2021-08-26 05:22] LABS: Hemoglobin 8.2 GM/DL (12.0-16.0); Immature Granulocytes % 0.6 %; Immature Granulocytes Absolute 0.03 #; Lymphocytes # 1.9 10*3/uL (1.4-4.0); Lymphocytes % 35.3 % (21.3-54.2); Mean Corpuscular HGB Conc 28.5 GM/DL (32-36); Mean Corpuscular Volume 70.1 FL (87-102); Monocytes % 7.8 % (1.7-12.7); Neutrophils % 56.3 % (38.7-73.9); Platelet Count 204 T/CUMM (130-400); Red Blood Count 4.11 MC/CUMM (3.8-5.5); Red Cell Distribution Width 21.4 % (9.3-17.3); White Blood Count 5.3 T/CUMM (4-12)
[2021-08-26 05:27] LABS: Hematocrit 28.8 VOL% (35.7-47.0)
[2021-08-26 05:29] LABS: Ferritin 326.6 ng/mL (8-252)
[2021-08-26 05:46] LABS: Hypochromia 2+
[2021-08-26 05:47] LABS: Microcytosis 1+; Ovalocytes Slight; Platelet Estimate Normal; Tear Drop Cells Slight
[2021-08-26] MEDS: INSULIN REGULAR 100 UNIT/ML SUBCUT SCH ×4 (08:20→23:36)
[2021-08-26] MEDS: CHOLECALCIFEROL 1,000 UNIT TABLET PO SCH (08:55)
[2021-08-26] MEDS: CETIRIZINE 10 MG TABLET PO SCH (08:56)
[2021-08-26] MEDS: SERTRALINE 100 MG TABLET PO SCH (08:56)
[2021-08-26] MEDS: GABAPENTIN 100 MG CAPSULE PO SCH ×2 (08:56→21:17)
[2021-08-26] MEDS: SIMETHICONE CHEW 125 MG TABLET PO SCH ×5 (08:56→23:35)
[2021-08-26] MEDS: METHENAMINE HIPPURATE 1 GM TABLET PO SCH ×2 (08:56→21:16)
[2021-08-26] MEDS: ISOSORBIDE MONONITRATE 30 MG TABLET PO SCH (08:57)
[2021-08-26] MEDS: PANTOPRAZOLE 40 MG TABLET PO SCH ×2 (08:57→21:18)
[2021-08-26] MEDS: amLODIPine 10 MG TABLET PO SCH (08:57)
[2021-08-26] MEDS: ASCORBIC ACID 500 MG TABLET PO SCH ×2 (08:57→21:17)
[2021-08-26] MEDS: ZINC GLUCONATE 50 MG TABLET PO SCH (08:57)
[2021-08-26] MEDS: carvediloL 12.5 MG TABLET PO SCH ×2 (08:58→21:18)
[2021-08-26] MEDS: CALCIUM (CARBONATE) 500 MG TABLET PO SCH ×2 (08:58→21:17)
[2021-08-26] MEDS: ASPIRIN EC 81 MG TABLET PO SCH (08:58)
[2021-08-26] MEDS: LINACLOTIDE 145 MCG CAPSULE PO SCH (08:58)
[2021-08-26] MEDS: FUROSEMIDE 40 MG TABLET PO SCH ×2 (08:58→16:23)
[2021-08-26] MEDS: DEXAMETHASONE 10 MG/1 ML VIAL IV SCH (09:00)
[2021-08-26] MEDS: THEOPHYLLINE 400 MG PO SCH (10:00)
[2021-08-26] MEDS: PROMETHAZINE 25 MG TABLET PO PRN ×2 (12:50→21:18)
[2021-08-26] MEDS: ENOXAPARIN 40 MG/0.4 ML SYRINGE SUBCUT SCH (14:28)
[2021-08-26] MEDS: LEVOFLOXACIN INJ 750 MG/150 ML PREMIX IV SCH (16:25)
[2021-08-26] MEDS: MELATONIN 3 MG TABLET PO SCH (21:16)
[2021-08-27 07:11] LABS: Calcium 7.4 MG/DL (8.5-10.1); Osmolality,Calculated 281.7 MOS/KG (273-304); Potassium 3.9 MMOL/L (3.5-5.1)
[2021-08-27 07:14] LABS: Ferritin 298.1 ng/mL (8-252)
[2021-08-27] MEDS: INSULIN REGULAR 100 UNIT/ML SUBCUT SCH ×4 (07:23→21:42)
[2021-08-27 07:29] LABS: Basophils % 0.1 % (0.0-0.8); Hematocrit 29.4 VOL% (35.7-47.0); Hemoglobin 8.2 GM/DL (12.0-16.0); Immature Granulocytes % 0.5 %; Immature Granulocytes Absolute 0.04 #; Lymphocytes % 26.3 % (21.3-54.2); Mean Corpuscular HGB Conc 27.9 GM/DL (32-36); Mean Corpuscular Volume 70.3 FL (87-102); Neutrophils % 66.1 % (38.7-73.9); Platelet Count 228 T/CUMM (130-400); Red Blood Count 4.18 MC/CUMM (3.8-5.5); Red Cell Distribution Width 22.2 % (9.3-17.3); White Blood Count 7.6 T/CUMM (4-12)
[2021-08-27 08:20] LABS: Anisocytosis 2+; Band Neutrophils 1 % (0-10); Lymphocytes 28 % (20-55); Macrocytosis Slight; Ovalocytes Few; Platelet Estimate Normal; Poikilocytosis 1+; Segmented Neutrophils 66 % (50-85); Tear Drop Cells Few; Total Cells Counted 100
[2021-08-27 08:21] LABS: Atypical Lymphocytes Few; Hypochromia 1+
[2021-08-27] MEDS: carvediloL 12.5 MG TABLET PO SCH ×2 (09:30→21:52)
[2021-08-27] MEDS ORDERED: ERGOCALCIFEROL 50,000 UNIT CAPSULE PO ONE (09:30)
[2021-08-27] MEDS: METHENAMINE HIPPURATE 1 GM TABLET PO SCH ×2 (09:30→21:53)
[2021-08-27] MEDS: CETIRIZINE 10 MG TABLET PO SCH (09:31)
[2021-08-27] MEDS: PANTOPRAZOLE 40 MG TABLET PO SCH ×2 (09:31→21:53)
[2021-08-27] MEDS: CHOLECALCIFEROL 1,000 UNIT TABLET PO SCH (09:31)
[2021-08-27] MEDS: ISOSORBIDE MONONITRATE 30 MG TABLET PO SCH (09:31)
[2021-08-27] MEDS: ASCORBIC ACID 500 MG TABLET PO SCH ×2 (09:31→21:51)
[2021-08-27] MEDS: SIMETHICONE CHEW 125 MG TABLET PO SCH ×4 (09:31→21:53)
[2021-08-27] MEDS: SERTRALINE 100 MG TABLET PO SCH (09:31)
[2021-08-27] MEDS: GABAPENTIN 100 MG CAPSULE PO SCH ×2 (09:31→21:53)
[2021-08-27] MEDS: CALCIUM (CARBONATE) 500 MG TABLET PO SCH ×2 (09:31→21:52)
[2021-08-27] MEDS: POTASSIUM CHLORIDE 20 MEQ TABLET PO SCH ×2 (09:31→21:52)
[2021-08-27] MEDS: ZINC GLUCONATE 50 MG TABLET PO SCH (09:31)
[2021-08-27] MEDS: FUROSEMIDE 40 MG TABLET PO SCH ×2 (09:31→15:00)
[2021-08-27] MEDS: ASPIRIN EC 81 MG TABLET PO SCH (09:32)
[2021-08-27] MEDS: THEOPHYLLINE 400 MG PO SCH (09:32)
[2021-08-27] MEDS: DEXAMETHASONE 10 MG/1 ML VIAL IV SCH (09:32)
[2021-08-27] MEDS: amLODIPine 10 MG TABLET PO SCH (09:32)
[2021-08-27] MEDS: PROMETHAZINE 25 MG TABLET PO PRN ×2 (10:33→21:51)
[2021-08-27] MEDS: ENOXAPARIN 40 MG/0.4 ML SYRINGE SUBCUT SCH (14:56)
[2021-08-27] MEDS: LEVOFLOXACIN INJ 750 MG/150 ML PREMIX IV SCH (18:08)
[2021-08-27] MEDS: MELATONIN 3 MG TABLET PO SCH (21:52)
[2021-08-27] MEDS: LOPERAMIDE 2 MG CAPSULE PO PRN (21:58)
[2021-08-28 06:57] LABS: Calcium 7.2 MG/DL (8.5-10.1); Potassium 4.3 MMOL/L (3.5-5.1)
[2021-08-28 07:03] LABS: Alanine Aminotransferase 23 U/L (13-56); Albumin 3.3 G/DL (3.4-5.0); Alkaline Phosphatase 97 U/L (45-117); Aspartate Amino Transferase 22 U/L (0-37); Bilirubin,Direct < 0.100 MG/DL (0.0-0.20); Bilirubin,Indirect 0.3 MG/DL (0.0-1.0); Bilirubin,Total < 0.39 MG/DL (0.20-1.00); Total Protein 8.1 G/DL (6.4-8.2)
[2021-08-28 07:09] LABS: Basophils % 0.1 % (0.0-0.8); Eosinophils % 0.1 % (0.00-10.9); Hematocrit 28.3 VOL% (35.7-47.0); Immature Granulocytes % 0.7 %; Immature Granulocytes Absolute 0.07 #; Lymphocytes # 2.1 10*3/uL (1.4-4.0); Lymphocytes % 22.6 % (21.3-54.2); Mean Corpuscular HGB Conc 28.3 GM/DL (32-36); Mean Corpuscular Volume 70.8 FL (87-102); Monocytes % 7.4 % (1.7-12.7); Neutrophils % 69.1 % (38.7-73.9); Platelet Count 238 T/CUMM (130-400); Red Cell Distribution Width 21.6 % (9.3-17.3); White Blood Count 9.4 T/CUMM (4-12)
[2021-08-28] MEDS: INSULIN REGULAR 100 UNIT/ML SUBCUT SCH ×4 (07:14→21:15)
[2021-08-28 07:18] LABS: Ferritin 301.9 ng/mL (8-252)
[2021-08-28] MEDS ORDERED: ERGOCALCIFEROL 50,000 UNIT CAPSULE PO ONE (09:25)
[2021-08-28] MEDS: FUROSEMIDE 40 MG TABLET PO SCH ×2 (11:03→16:08)
[2021-08-28] MEDS: GABAPENTIN 100 MG CAPSULE PO SCH ×2 (11:04→21:08)
[2021-08-28] MEDS: POTASSIUM CHLORIDE 20 MEQ TABLET PO SCH ×2 (11:04→21:06)
[2021-08-28] MEDS: THEOPHYLLINE 400 MG PO SCH (11:04)
[2021-08-28] MEDS: METHENAMINE HIPPURATE 1 GM TABLET PO SCH ×2 (11:04→21:08)
[2021-08-28] MEDS: carvediloL 12.5 MG TABLET PO SCH ×2 (11:04→21:08)
[2021-08-28] MEDS: CALCIUM (CARBONATE) 500 MG TABLET PO SCH ×2 (11:04→21:07)
[2021-08-28] MEDS: amLODIPine 10 MG TABLET PO SCH (11:04)
[2021-08-28] MEDS: ISOSORBIDE MONONITRATE 30 MG TABLET PO SCH (11:04)
[2021-08-28] MEDS: DEXAMETHASONE 10 MG/1 ML VIAL IV SCH (11:04)
[2021-08-28] MEDS: ASPIRIN EC 81 MG TABLET PO SCH (11:04)
[2021-08-28] MEDS: SIMETHICONE CHEW 125 MG TABLET PO SCH ×4 (11:04→21:08)
[2021-08-28] MEDS: PANTOPRAZOLE 40 MG TABLET PO SCH ×2 (11:05→21:07)
[2021-08-28] MEDS: ASCORBIC ACID 500 MG TABLET PO SCH ×2 (11:05→21:07)
[2021-08-28] MEDS: CETIRIZINE 10 MG TABLET PO SCH (11:05)
[2021-08-28] MEDS: ZINC GLUCONATE 50 MG TABLET PO SCH (11:05)
[2021-08-28] MEDS: CHOLECALCIFEROL 1,000 UNIT TABLET PO SCH (11:05)
[2021-08-28] MEDS: SERTRALINE 100 MG TABLET PO SCH (11:05)
[2021-08-28] MEDS: ENOXAPARIN 40 MG/0.4 ML SYRINGE SUBCUT SCH (14:14)
[2021-08-28] MEDS: PROMETHAZINE 25 MG TABLET PO PRN ×2 (16:08→21:08)
[2021-08-28] MEDS: LEVOFLOXACIN INJ 750 MG/150 ML PREMIX IV SCH (16:08)
[2021-08-28] MEDS: MELATONIN 3 MG TABLET PO SCH (21:08)
[2021-08-29] MEDS: LOPERAMIDE 2 MG CAPSULE PO PRN (06:36)
[2021-08-29] MEDS: PROMETHAZINE 25 MG TABLET PO PRN ×2 (06:36→19:55)
[2021-08-29 06:47] LABS: Ferritin 303.2 ng/mL (8-252)
[2021-08-29 06:58] LABS: Calcium 7.7 MG/DL (8.5-10.1); Osmolality,Calculated 273.4 MOS/KG (273-304); Potassium 4.2 MMOL/L (3.5-5.1)
[2021-08-29 07:05] LABS: Basophils % 0.5 % (0.0-0.8); Eosinophils # 0.1 10*3/uL (0.0-0.87); Eosinophils % 1.8 % (0.00-10.9); Hematocrit 34.2 VOL% (35.7-47.0); Hemoglobin 8.6 GM/DL (12.0-16.0); Immature Granulocytes % 0.7 %; Immature Granulocytes Absolute 0.04 #; Lymphocytes % 32.3 % (21.3-54.2); Mean Corpuscular HGB Conc 25.1 GM/DL (32-36); Mean Corpuscular Volume 78.4 FL (87-102); Monocytes % 8.2 % (1.7-12.7); Neutrophils % 56.5 % (38.7-73.9); Platelet Count 202 T/CUMM (130-400); Red Blood Count 4.36 MC/CUMM (3.8-5.5); Red Cell Distribution Width 22.5 % (9.3-17.3); White Blood Count 6.1 T/CUMM (4-12)
[2021-08-29] MEDS: INSULIN REGULAR 100 UNIT/ML SUBCUT SCH ×4 (07:27→20:05)
[2021-08-29] MEDS: ZINC GLUCONATE 50 MG TABLET PO SCH (10:01)
[2021-08-29] MEDS: CETIRIZINE 10 MG TABLET PO SCH (10:01)
[2021-08-29] MEDS: GABAPENTIN 100 MG CAPSULE PO SCH ×2 (10:01→20:04)
[2021-08-29] MEDS: METHENAMINE HIPPURATE 1 GM TABLET PO SCH ×2 (10:01→20:03)
[2021-08-29] MEDS: ASCORBIC ACID 500 MG TABLET PO SCH ×2 (10:01→20:04)
[2021-08-29] MEDS: CHOLECALCIFEROL 1,000 UNIT TABLET PO SCH (10:02)
[2021-08-29] MEDS: SERTRALINE 100 MG TABLET PO SCH (10:04)
[2021-08-29] MEDS: CALCIUM (CARBONATE) 500 MG TABLET PO SCH ×2 (10:04→20:04)
[2021-08-29] MEDS: POTASSIUM CHLORIDE 20 MEQ TABLET PO SCH ×2 (10:04→20:03)
[2021-08-29] MEDS: ASPIRIN EC 81 MG TABLET PO SCH (10:04)
[2021-08-29] MEDS: SIMETHICONE CHEW 125 MG TABLET PO SCH ×4 (10:04→20:04)
[2021-08-29] MEDS: ISOSORBIDE MONONITRATE 30 MG TABLET PO SCH (10:04)
[2021-08-29] MEDS: carvediloL 12.5 MG TABLET PO SCH ×2 (10:04→20:04)
[2021-08-29] MEDS: amLODIPine 10 MG TABLET PO SCH (10:04)
[2021-08-29] MEDS: FUROSEMIDE 40 MG TABLET PO SCH ×2 (10:04→15:49)
[2021-08-29] MEDS: DEXAMETHASONE 10 MG/1 ML VIAL IV SCH (10:05)
[2021-08-29] MEDS: PANTOPRAZOLE 40 MG TABLET PO SCH ×2 (10:05→20:03)
[2021-08-29] MEDS: THEOPHYLLINE 400 MG PO SCH (10:39)
[2021-08-29] MEDS: ENOXAPARIN 40 MG/0.4 ML SYRINGE SUBCUT SCH (13:37)
[2021-08-29] MEDS ORDERED: CHOLESTYRAMINE 4 GM PACK PO ONE (14:59)
[2021-08-29] MEDS: LEVOFLOXACIN INJ 750 MG/150 ML PREMIX IV SCH ×2 (15:49→15:58)
[2021-08-29] MEDS: MELATONIN 3 MG TABLET PO SCH (20:03)
[2021-08-29] MEDS ORDERED: CHOLESTYRAMINE 4 GM PACK PO SCH (22:00)
[2021-08-30] MEDS: PROMETHAZINE 25 MG TABLET PO PRN ×2 (03:36→11:44)
[2021-08-30 05:35] LABS: Hematocrit 28.5 VOL% (35.7-47.0); Hemoglobin 8.1 GM/DL (12.0-16.0); Immature Granulocytes % 1.5 %; Immature Granulocytes Absolute 0.15 #; Lymphocytes # 1.5 10*3/uL (1.4-4.0); Mean Corpuscular HGB Conc 28.4 GM/DL (32-36); Mean Corpuscular Volume 70.4 FL (87-102); Monocytes % 5.2 % (1.7-12.7); Neutrophils % 78.3 % (38.7-73.9); Platelet Count 242 T/CUMM (130-400); Red Blood Count 4.05 MC/CUMM (3.8-5.5); Red Cell Distribution Width 21.7 % (9.3-17.3)
[2021-08-30 05:36] LABS: White Blood Count 9.9 T/CUMM (4-12)
[2021-08-30 08:06] LABS: Calcium 7.8 MG/DL (8.5-10.1); Osmolality,Calculated 278.2 MOS/KG (273-304); Potassium 4.7 MMOL/L (3.5-5.1)
[2021-08-30] MEDS: INSULIN REGULAR 100 UNIT/ML SUBCUT SCH ×4 (09:26→21:52)
[2021-08-30] MEDS: PANTOPRAZOLE 40 MG TABLET PO SCH ×2 (09:38→20:00)
[2021-08-30] MEDS: LOPERAMIDE 2 MG CAPSULE PO PRN (09:38)
[2021-08-30] MEDS: amLODIPine 10 MG TABLET PO SCH (09:38)
[2021-08-30] MEDS: ISOSORBIDE MONONITRATE 30 MG TABLET PO SCH (09:38)
[2021-08-30] MEDS: FUROSEMIDE 40 MG TABLET PO SCH (09:39)
[2021-08-30] MEDS: GABAPENTIN 100 MG CAPSULE PO SCH ×2 (09:39→20:00)
[2021-08-30] MEDS: ASPIRIN EC 81 MG TABLET PO SCH (09:39)
[2021-08-30] MEDS: CETIRIZINE 10 MG TABLET PO SCH (09:39)
[2021-08-30] MEDS: carvediloL 12.5 MG TABLET PO SCH ×2 (09:39→20:00)
[2021-08-30] MEDS: SERTRALINE 100 MG TABLET PO SCH (09:39)
[2021-08-30] MEDS: SIMETHICONE CHEW 125 MG TABLET PO SCH (09:39)
[2021-08-30] MEDS: ASCORBIC ACID 500 MG TABLET PO SCH ×2 (09:39→20:00)
[2021-08-30] MEDS: CALCIUM (CARBONATE) 500 MG TABLET PO SCH ×2 (09:40→20:00)
[2021-08-30] MEDS: CHOLECALCIFEROL 1,000 UNIT TABLET PO SCH (09:40)
[2021-08-30] MEDS: POTASSIUM CHLORIDE 20 MEQ TABLET PO SCH ×2 (09:40→20:00)
[2021-08-30] MEDS: CHOLESTYRAMINE 4 GM PACK PO SCH ×3 (09:45→21:53)
[2021-08-30] MEDS: DEXAMETHASONE 10 MG/1 ML VIAL IV SCH (09:46)
[2021-08-30] MEDS: THEOPHYLLINE 400 MG PO SCH (09:47)
[2021-08-30] MEDS: METHENAMINE HIPPURATE 1 GM TABLET PO SCH (10:27)
[2021-08-30] MEDS: NYSTATIN POWDER 15 GM BOTTLE TOP SCH ×2 (16:38→20:00)
[2021-08-30] MEDS: ENOXAPARIN 40 MG/0.4 ML SYRINGE SUBCUT SCH (16:38)
[2021-08-30] MEDS: FLUCONAZOLE INJ 200 MG/100 ML PREMIX IV SCH (16:38)
[2021-08-30] MEDS: MELATONIN 3 MG TABLET PO SCH (20:00)
[2021-08-31 05:32] LABS: Ferritin 254.2 ng/mL (8-252)
[2021-08-31] MEDS: ASCORBIC ACID 500 MG TABLET PO SCH ×2 (10:05→21:18)
[2021-08-31] MEDS: ASPIRIN EC 81 MG TABLET PO SCH (10:06)
[2021-08-31] MEDS: POTASSIUM CHLORIDE 20 MEQ TABLET PO SCH (10:06)
[2021-08-31] MEDS: CHOLECALCIFEROL 1,000 UNIT TABLET PO SCH (10:06)
[2021-08-31] MEDS: SERTRALINE 100 MG TABLET PO SCH (10:06)
[2021-08-31] MEDS: PANTOPRAZOLE 40 MG TABLET PO SCH ×2 (10:06→21:18)
[2021-08-31] MEDS: CETIRIZINE 10 MG TABLET PO SCH (10:07)
[2021-08-31] MEDS: amLODIPine 10 MG TABLET PO SCH (10:07)
[2021-08-31] MEDS: GABAPENTIN 100 MG CAPSULE PO SCH ×2 (10:07→21:18)
[2021-08-31] MEDS: carvediloL 12.5 MG TABLET PO SCH ×2 (10:07→21:18)
[2021-08-31] MEDS: CALCIUM (CARBONATE) 500 MG TABLET PO SCH ×2 (10:07→21:18)
[2021-08-31] MEDS: ISOSORBIDE MONONITRATE 30 MG TABLET PO SCH (10:07)
[2021-08-31] MEDS: DEXAMETHASONE 10 MG/1 ML VIAL IV SCH (10:08)
[2021-08-31] MEDS: CHOLESTYRAMINE 4 GM PACK PO SCH ×2 (10:11→21:36)
[2021-08-31] MEDS: NYSTATIN POWDER 15 GM BOTTLE TOP SCH ×2 (10:11→21:36)
[2021-08-31] MEDS: PROMETHAZINE 25 MG TABLET PO PRN ×2 (10:13→21:31)
[2021-08-31] MEDS: THEOPHYLLINE 400 MG PO SCH (10:14)
[2021-08-31] MEDS: INSULIN REGULAR 100 UNIT/ML SUBCUT SCH ×4 (10:15→21:09)
[2021-08-31] MEDS ORDERED: ERGOCALCIFEROL 50,000 UNIT CAPSULE PO ONE (13:30)
[2021-08-31] MEDS: ENOXAPARIN 40 MG/0.4 ML SYRINGE SUBCUT SCH (17:21)
[2021-08-31] MEDS: FLUCONAZOLE INJ 200 MG/100 ML PREMIX IV SCH (17:21)
[2021-08-31] MEDS: MELATONIN 3 MG TABLET PO SCH (21:17)
[2021-09-01 06:11] LABS: Basophils % 0.4 % (0.0-0.8); Eosinophils # 0.2 10*3/uL (0.0-0.87); Eosinophils % 2.3 % (0.00-10.9); Hemoglobin 8.8 GM/DL (12.0-16.0); Immature Granulocytes % 1.3 %; Immature Granulocytes Absolute 0.11 #; Lymphocytes # 2.5 10*3/uL (1.4-4.0); Lymphocytes % 29.8 % (21.3-54.2); Mean Corpuscular HGB Conc 27.8 GM/DL (32-36); Mean Corpuscular Volume 70.8 FL (87-102); Monocytes % 9.7 % (1.7-12.7); Neutrophils % 56.5 % (38.7-73.9); Platelet Count 133 T/CUMM (130-400); Red Blood Count 4.48 MC/CUMM (3.8-5.5); Red Cell Distribution Width 22.4 % (9.3-17.3); White Blood Count 8.2 T/CUMM (4-12)
[2021-09-01 06:25] LABS: Calcium 8.4 MG/DL (8.5-10.1); Osmolality,Calculated 267.1 MOS/KG (273-304); Potassium 5.1 MMOL/L (3.5-5.1)
[2021-09-01 06:32] LABS: Hematocrit 31.7 VOL% (35.7-47.0)
[2021-09-01] MEDS: INSULIN REGULAR 100 UNIT/ML SUBCUT SCH ×3 (08:59→15:32)
[2021-09-01] MEDS: CHOLECALCIFEROL 1,000 UNIT TABLET PO SCH (09:01)
[2021-09-01] MEDS: CHOLESTYRAMINE 4 GM PACK PO SCH (09:01)
[2021-09-01] MEDS: amLODIPine 10 MG TABLET PO SCH (09:01)
[2021-09-01] MEDS: ASCORBIC ACID 500 MG TABLET PO SCH (09:01)
[2021-09-01] MEDS: CALCIUM (CARBONATE) 500 MG TABLET PO SCH (09:02)
[2021-09-01] MEDS: ASPIRIN EC 81 MG TABLET PO SCH (09:02)
[2021-09-01] MEDS: CETIRIZINE 10 MG TABLET PO SCH (09:02)
[2021-09-01] MEDS: GABAPENTIN 100 MG CAPSULE PO SCH (09:02)
[2021-09-01] MEDS: ISOSORBIDE MONONITRATE 30 MG TABLET PO SCH (09:02)
[2021-09-01] MEDS: DEXAMETHASONE 10 MG/1 ML VIAL IV SCH (09:02)
[2021-09-01] MEDS: carvediloL 12.5 MG TABLET PO SCH (09:02)
[2021-09-01] MEDS: PANTOPRAZOLE 40 MG TABLET PO SCH (09:02)
[2021-09-01] MEDS: THEOPHYLLINE 400 MG PO SCH (09:03)
[2021-09-01] MEDS: SERTRALINE 100 MG TABLET PO SCH (09:09)
[2021-09-01] MEDS: NYSTATIN POWDER 15 GM BOTTLE TOP SCH ×2 (09:13→09:19)
[2021-09-01] MEDS: PROMETHAZINE 25 MG TABLET PO PRN (09:18)
[2021-09-01] MEDS ORDERED: DIPHENOXYLATE/ATROPINE 2.5-0.025 MG TABLET PO PRN (13:14)
[2021-09-01] MEDS: FLUCONAZOLE INJ 200 MG/100 ML PREMIX IV SCH (15:27)
[2021-09-01] MEDS: ENOXAPARIN 40 MG/0.4 ML SYRINGE SUBCUT SCH (15:28)
[2021-09-01 15:42] VITALS: BP 130/63
== END 2021-09-01 17:45 | disposition home or self-care (01) | DRG 137 ==
LOC: EDBD → EDUNIT# → N.ED 19:37 → N.EDINP 08-21 01:59 → SUATTDRO 08-21 01:59 → N.3E 08-21 05:29
PROVIDERS: ADMIT Internal Medicine; ATTEND Internal Medicine

== ENCOUNTER 2021-10-02 16:49 | Inpatient (IN) ==
[2021-10-02] MEDS ORDERED: ALBUTEROL 2.5 MG/3 ML NEB RESP TX STA (17:09)
[2021-10-02] MEDS ORDERED: FUROSEMIDE 40 MG/4 ML VIAL IV STA (17:44)
[2021-10-02 17:45] LABS: Arterial Base Excess iSTAT 5 MMOL/L (-2.5-2.5); Arterial O2 Saturation iSTAT 93 % (95-100); Arterial PCO2 iSTAT 62 MM HG (35-48); Arterial PO2 iSTAT 73 MM HG (80-95); Arterial Total CO2 iSTAT 34 MMO/L (23-27); Arterial pH iSTAT 7.324 (7.35-7.45)
[2021-10-02 17:59] LABS: Albumin 3.7 G/DL (3.4-5.0); Bilirubin,Total 0.4 MG/DL (0.20-1.00); Calcium 9.1 MG/DL (8.5-10.1); Osmolality,Calculated 268.2 MOS/KG (273-304); Potassium 4.7 MMOL/L (3.5-5.1); Total Protein 8.1 G/DL (6.4-8.2)
[2021-10-02 18:16] LABS: Basophils % 0.4 % (0.0-0.8); Eosinophils # 0.2 10*3/uL (0.0-0.87); Eosinophils % 2.4 % (0.00-10.9); Hemoglobin 9.1 GM/DL (12.0-16.0); Immature Granulocytes % 0.4 %; Immature Granulocytes Absolute 0.03 #; Lymphocytes # 1.9 10*3/uL (1.4-4.0); Lymphocytes % 26.7 % (21.3-54.2); Mean Corpuscular HGB Conc 27.2 GM/DL (32-36); Mean Corpuscular Volume 72.3 FL (87-102); Monocytes % 4.8 % (1.7-12.7); Neutrophils % 65.3 % (38.7-73.9); Platelet Count 228 T/CUMM (130-400); Red Blood Count 4.62 MC/CUMM (3.8-5.5); Red Cell Distribution Width 20.3 % (9.3-17.3); White Blood Count 7.2 T/CUMM (4-12)
[2021-10-02 18:22] LABS: Hematocrit 33.4 VOL% (35.7-47.0)
[2021-10-02] MEDS ORDERED: GLUCAGON 1 MG VIAL IM PRN ×2 (19:11→19:12)
[2021-10-02] MEDS ORDERED: MAGNESIUM SULF RIDER 2 GM/50 ML PREMIX IV PRN (19:12)
[2021-10-02] MEDS ORDERED: DEXTROSE 50% 25 GM/50 ML VIAL IV PRN (19:12)
[2021-10-02] MEDS ORDERED: MAGNESIUM SULF RIDER 4 GM/100 ML PREMIX IV PRN (19:12)
[2021-10-02] MEDS ORDERED: DEXTROSE 10% 250 ML BAG IV PRN (19:29)
[2021-10-02] MEDS: carvediloL 3.125 MG TABLET PO SCH (20:13)
[2021-10-02] MEDS: ENOXAPARIN 60 MG/0.6 ML SYRINGE SUBCUT SCH (20:15)
[2021-10-02] MEDS: INSULIN REGULAR 100 UNIT/ML SUBCUT SCH (20:21)
[2021-10-03] MEDS: ALBUTEROL/IPRATROPIUM 3 ML NEB RESP TX SCH ×4 (00:28→19:16)
[2021-10-03 05:56] LABS: Albumin 3.2 G/DL (3.4-5.0); Bilirubin,Total 0.4 MG/DL (0.20-1.00); Calcium 9.1 MG/DL (8.5-10.1); Total Protein 7.7 G/DL (6.4-8.2)
[2021-10-03 06:04] LABS: Osmolality,Calculated 267.4 MOS/KG (273-304); Potassium 3.7 MMOL/L (3.5-5.1)
[2021-10-03 06:36] LABS: Basophils % 0.3 % (0.0-0.8); Eosinophils % 0.2 % (0.00-10.9); Hematocrit 31.3 VOL% (35.7-47.0); Hemoglobin 8.8 GM/DL (12.0-16.0); Immature Granulocytes % 0.3 %; Immature Granulocytes Absolute 0.02 #; Lymphocytes # 2.2 10*3/uL (1.4-4.0); Lymphocytes % 37.2 % (21.3-54.2); Mean Corpuscular HGB Conc 28.1 GM/DL (32-36); Monocytes % 6.2 % (1.7-12.7); Neutrophils % 55.8 % (38.7-73.9); Platelet Count 212 T/CUMM (130-400); Red Blood Count 4.35 MC/CUMM (3.8-5.5); Red Cell Distribution Width 20.3 % (9.3-17.3); White Blood Count 5.9 T/CUMM (4-12)
[2021-10-03 06:43] LABS: Hypochromia 2+; Lymphocytes 35 % (20-55); Microcytosis 1+; Segmented Neutrophils 56 % (50-85); Total Cells Counted 100
[2021-10-03 06:44] LABS: Ovalocytes Few; Platelet Estimate Normal; Tear Drop Cells Slight
[2021-10-03 06:45] LABS: Atypical Lymphocytes Few
[2021-10-03] MEDS: INSULIN REGULAR 100 UNIT/ML SUBCUT SCH ×4 (07:29→21:00)
[2021-10-03] MEDS ORDERED: MAGNESIUM SULF RIDER 2 GM/50 ML PREMIX IV ONE (08:44)
[2021-10-03] MEDS ORDERED: IRON SUCROSE 200 MG in SODIUM CHLORIDE 0.9% 100 ML IV SCH (09:00)
[2021-10-03 09:12] LABS: Arterial Base Excess iSTAT 5 MMOL/L (-2.5-2.5); Arterial Bicarbonate iSTAT 31.4 MMOL/L (20-26); Arterial O2 Saturation iSTAT 94 % (95-100); Arterial PCO2 iSTAT 56 MM HG (35-48); Arterial PO2 iSTAT 75 MM HG (80-95); Arterial Total CO2 iSTAT 33 MMO/L (23-27); Arterial pH iSTAT 7.358 (7.35-7.45)
[2021-10-03] MEDS: FERRIC GLUCONATE COMPLEX 125 MG in SODIUM CHLORIDE 0.9% 100 ML IV SCH (09:51)
[2021-10-03] MEDS: carvediloL 3.125 MG TABLET PO SCH ×2 (09:53→20:59)
[2021-10-03] MEDS: PANTOPRAZOLE 40 MG TABLET PO SCH (09:53)
[2021-10-03] MEDS: ISOSORBIDE MONONITRATE 30 MG TABLET PO SCH (09:53)
[2021-10-03] MEDS: LOSARTAN 25 MG TABLET PO SCH (09:53)
[2021-10-03] MEDS: SERTRALINE 100 MG TABLET PO SCH (09:53)
[2021-10-03] MEDS: FUROSEMIDE 40 MG/4 ML VIAL IV SCH ×3 (09:54→16:42)
[2021-10-03 13:35] LABS: Bacteria,Urine Occasional /HPF (Few); Hyaline Casts,Urine 1 /LPF (0-3); Mucus,Urine Occasional /LPF (Occasional); RBC,Urine <1 /HPF (0-4); Squamous Epithelial Cell,Urine Occasional /HPF (0-10)
[2021-10-03 13:39] LABS: Protein,Urine Negative (Negative); Urine Appearance Clear (Clear); Urine Color Light Yellow (Yellow); Urine Specific Gravity 1.015 (1.001-1.035); Urine pH 5.5 (4.5-8.0)
[2021-10-03 13:40] LABS: Bilirubin,Urine Negative (Negative); Blood, Urine Negative (Negative); Glucose,Urine (UA) Negative (Negative); Ketones,Urine Negative (Negative); Nitrite,Urine Negative (Negative); Urine Urobilinogen < 2.0 eU/dL (<2.0)
[2021-10-03] MEDS: ENOXAPARIN 60 MG/0.6 ML SYRINGE SUBCUT SCH (20:59)
[2021-10-03] MEDS: POTASSIUM CHLORIDE 20 MEQ TABLET PO SCH (20:59)
[2021-10-03] MEDS: CHOLESTYRAMINE 4 GM PACK PO SCH (21:46)
[2021-10-04] MEDS: ALBUTEROL/IPRATROPIUM 3 ML NEB RESP TX SCH ×4 (00:24→19:33)
[2021-10-04 05:22] LABS: Calcium 9.3 MG/DL (8.5-10.1); Osmolality,Calculated 271.2 MOS/KG (273-304)
[2021-10-04 05:40] LABS: Basophils % 0.4 % (0.0-0.8); Eosinophils # 0.2 10*3/uL (0.0-0.87); Eosinophils % 2.1 % (0.00-10.9); Hematocrit 31.3 VOL% (35.7-47.0); Immature Granulocytes % 0.3 %; Immature Granulocytes Absolute 0.02 #; Lymphocytes # 2.4 10*3/uL (1.4-4.0); Lymphocytes % 32.9 % (21.3-54.2); Mean Corpuscular HGB Conc 28.1 GM/DL (32-36); Mean Corpuscular Volume 70.7 FL (87-102); Monocytes % 6.1 % (1.7-12.7); Neutrophils % 58.2 % (38.7-73.9); Platelet Count 190 T/CUMM (130-400); Red Blood Count 4.43 MC/CUMM (3.8-5.5); Red Cell Distribution Width 20.3 % (9.3-17.3); White Blood Count 7.2 T/CUMM (4-12)
[2021-10-04 05:44] LABS: Hemoglobin 8.8 GM/DL (12.0-16.0)
[2021-10-04] MEDS: FUROSEMIDE 40 MG/4 ML VIAL IV SCH (08:47)
[2021-10-04] MEDS: INSULIN REGULAR 100 UNIT/ML SUBCUT SCH ×4 (09:11→22:14)
[2021-10-04] MEDS: CHOLESTYRAMINE 4 GM PACK PO SCH ×3 (09:12→22:21)
[2021-10-04] MEDS: SERTRALINE 100 MG TABLET PO SCH (09:12)
[2021-10-04] MEDS: ISOSORBIDE MONONITRATE 30 MG TABLET PO SCH (09:12)
[2021-10-04] MEDS: ASPIRIN EC 81 MG TABLET PO SCH (09:12)
[2021-10-04] MEDS: POTASSIUM CHLORIDE 20 MEQ TABLET PO SCH ×2 (09:12→20:38)
[2021-10-04] MEDS: LOSARTAN 25 MG TABLET PO SCH (09:12)
[2021-10-04] MEDS: carvediloL 3.125 MG TABLET PO SCH ×2 (09:12→20:38)
[2021-10-04] MEDS: PANTOPRAZOLE 40 MG TABLET PO SCH (09:16)
[2021-10-04] MEDS: FERRIC GLUCONATE COMPLEX 125 MG in SODIUM CHLORIDE 0.9% 100 ML IV SCH (09:16)
[2021-10-04] MEDS: FUROSEMIDE 100 MG/10 ML VIAL IV SCH ×2 (09:24→16:07)
[2021-10-04] MEDS: LEVOFLOXACIN INJ 750 MG/150 ML PREMIX IV SCH (11:33)
[2021-10-04] MEDS: VENLAFAXINE XR 37.5 MG CAPSULE PO SCH (16:05)
[2021-10-04] MEDS: ACETAMINOPHEN 325 MG TABLET PO PRN (18:18)
[2021-10-04] MEDS: ENOXAPARIN 60 MG/0.6 ML SYRINGE SUBCUT SCH (20:38)
[2021-10-05] MEDS: ALBUTEROL/IPRATROPIUM 3 ML NEB RESP TX SCH ×4 (01:27→19:29)
[2021-10-05 05:25] LABS: Calcium 9.4 MG/DL (8.5-10.1); Potassium 4.1 MMOL/L (3.5-5.1)
[2021-10-05 05:56] LABS: Basophils % 0.4 % (0.0-0.8); Eosinophils # 0.1 10*3/uL (0.0-0.87); Eosinophils % 0.9 % (0.00-10.9); Hemoglobin 8.7 GM/DL (12.0-16.0); Immature Granulocytes % 0.3 %; Immature Granulocytes Absolute 0.02 #; Lymphocytes # 2.4 10*3/uL (1.4-4.0); Lymphocytes % 36.1 % (21.3-54.2); Mean Corpuscular HGB Conc 28.2 GM/DL (32-36); Mean Corpuscular Volume 71.5 FL (87-102); Monocytes % 7.7 % (1.7-12.7); Neutrophils % 54.6 % (38.7-73.9); Platelet Count 223 T/CUMM (130-400); Red Blood Count 4.31 MC/CUMM (3.8-5.5); Red Cell Distribution Width 19.9 % (9.3-17.3); White Blood Count 6.7 T/CUMM (4-12)
[2021-10-05 06:01] LABS: Hematocrit 30.8 VOL% (35.7-47.0)
[2021-10-05 06:21] LABS: Hypochromia 2+; Microcytosis 2+; Ovalocytes Slight; Platelet Estimate Normal; Tear Drop Cells Slight
[2021-10-05] MEDS ORDERED: FUROSEMIDE 100 MG/10 ML VIAL IV SCH (08:00)
[2021-10-05] MEDS: ISOSORBIDE MONONITRATE 30 MG TABLET PO SCH (09:31)
[2021-10-05] MEDS: PANTOPRAZOLE 40 MG TABLET PO SCH (09:31)
[2021-10-05] MEDS: ASPIRIN EC 81 MG TABLET PO SCH (09:31)
[2021-10-05] MEDS: carvediloL 3.125 MG TABLET PO SCH ×2 (09:31→21:04)
[2021-10-05] MEDS: VENLAFAXINE XR 37.5 MG CAPSULE PO SCH (09:32)
[2021-10-05] MEDS: CHOLESTYRAMINE 4 GM PACK PO SCH ×2 (09:32→21:05)
[2021-10-05] MEDS: POTASSIUM CHLORIDE 20 MEQ TABLET PO SCH ×2 (09:32→21:05)
[2021-10-05] MEDS: LOSARTAN 25 MG TABLET PO SCH (09:32)
[2021-10-05] MEDS: SERTRALINE 100 MG TABLET PO SCH (09:32)
[2021-10-05] MEDS: FUROSEMIDE 40 MG/4 ML VIAL IV SCH ×2 (09:35→17:39)
[2021-10-05] MEDS: INSULIN REGULAR 100 UNIT/ML SUBCUT SCH ×4 (09:36→23:19)
[2021-10-05] MEDS: FERRIC GLUCONATE COMPLEX 125 MG in SODIUM CHLORIDE 0.9% 100 ML IV SCH (09:40)
[2021-10-05] MEDS: LEVOFLOXACIN INJ 750 MG/150 ML PREMIX IV SCH (10:55)
[2021-10-05 11:56] LABS: % Iron Saturation 24.4 % (18-50)
[2021-10-05 12:05] LABS: Folate 16.24 NG/ML (5.38-24.0)
[2021-10-05] MEDS: MONTELUKAST 10 MG TABLET PO SCH (14:33)
[2021-10-05] MEDS: ACETAMINOPHEN 325 MG TABLET PO PRN (14:40)
[2021-10-05] MEDS: LIDOCAINE 5% PATCH TRANSDERM SCH (17:33)
[2021-10-05] MEDS: ENOXAPARIN 60 MG/0.6 ML SYRINGE SUBCUT SCH (21:05)
[2021-10-05] MEDS: ALUMINUM/MAGNES/SIMETH MAX STR 30 ML UDCUP PO SCH (21:05)
[2021-10-06] MEDS: ALBUTEROL/IPRATROPIUM 3 ML NEB RESP TX SCH ×4 (00:01→19:18)
[2021-10-06 06:21] LABS: Calcium 9.4 MG/DL (8.5-10.1); Osmolality,Calculated 277.1 MOS/KG (273-304); Potassium 4.5 MMOL/L (3.5-5.1)
[2021-10-06 06:40] LABS: Basophils % 0.7 % (0.0-0.8); Eosinophils # 0.1 10*3/uL (0.0-0.87); Eosinophils % 1.1 % (0.00-10.9); Hematocrit 27.2 VOL% (35.7-47.0); Hemoglobin 7.8 GM/DL (12.0-16.0); Immature Granulocytes % 0.2 %; Immature Granulocytes Absolute 0.01 #; Lymphocytes # 2.1 10*3/uL (1.4-4.0); Lymphocytes % 37.3 % (21.3-54.2); Mean Corpuscular HGB Conc 28.7 GM/DL (32-36); Mean Corpuscular Volume 70.1 FL (87-102); Monocytes % 7.7 % (1.7-12.7); Platelet Count 167 T/CUMM (130-400); Red Blood Count 3.88 MC/CUMM (3.8-5.5); White Blood Count 5.5 T/CUMM (4-12)
[2021-10-06 06:44] LABS: Hypochromia 2+; Microcytosis 2+
[2021-10-06 06:45] LABS: Ovalocytes Slight; Platelet Estimate Adequate; Tear Drop Cells Slight
[2021-10-06] MEDS: CHOLESTYRAMINE 4 GM PACK PO SCH ×2 (09:09→21:19)
[2021-10-06] MEDS: SERTRALINE 100 MG TABLET PO SCH (09:10)
[2021-10-06] MEDS: PANTOPRAZOLE 40 MG TABLET PO SCH (09:10)
[2021-10-06] MEDS: ISOSORBIDE MONONITRATE 30 MG TABLET PO SCH (09:10)
[2021-10-06] MEDS: LOSARTAN 25 MG TABLET PO SCH (09:10)
[2021-10-06] MEDS: VENLAFAXINE XR 37.5 MG CAPSULE PO SCH (09:10)
[2021-10-06] MEDS: POTASSIUM CHLORIDE 20 MEQ TABLET PO SCH ×2 (09:10→21:20)
[2021-10-06] MEDS: MONTELUKAST 10 MG TABLET PO SCH (09:10)
[2021-10-06] MEDS: FUROSEMIDE 40 MG/4 ML VIAL IV SCH ×2 (09:10→15:41)
[2021-10-06] MEDS: carvediloL 3.125 MG TABLET PO SCH ×2 (09:10→21:20)
[2021-10-06] MEDS: ASPIRIN EC 81 MG TABLET PO SCH (09:10)
[2021-10-06] MEDS: LIDOCAINE 5% PATCH TRANSDERM SCH (09:11)
[2021-10-06] MEDS: CYANOCOBALAMIN 500 MCG TABLET PO SCH (09:29)
[2021-10-06] MEDS: INSULIN REGULAR 100 UNIT/ML SUBCUT SCH ×4 (10:07→21:28)
[2021-10-06] MEDS ORDERED: CYANOCOBALAMIN 1000 MCG/1 ML VIAL IM ONE (11:04)
[2021-10-06] MEDS: FERRIC GLUCONATE COMPLEX 125 MG in SODIUM CHLORIDE 0.9% 100 ML IV SCH (11:50)
[2021-10-06] MEDS: POLYETHYLENE GLYCOL POWDER 17 GM PACK PO SCH ×2 (14:11→21:19)
[2021-10-06] MEDS: ACETAMINOPHEN 325 MG TABLET PO PRN (14:14)
[2021-10-06] MEDS: ALUMINUM/MAGNES/SIMETH MAX STR 30 ML UDCUP PO SCH (21:19)
[2021-10-06] MEDS: ENOXAPARIN 60 MG/0.6 ML SYRINGE SUBCUT SCH (21:20)
[2021-10-07] MEDS: ALBUTEROL/IPRATROPIUM 3 ML NEB RESP TX SCH ×4 (00:18→19:29)
[2021-10-07 06:22] LABS: Potassium 4.9 MMOL/L (3.5-5.1)
[2021-10-07 06:26] LABS: Basophils % 0.6 % (0.0-0.8); Eosinophils % 0.8 % (0.00-10.9); Hemoglobin 8.6 GM/DL (12.0-16.0); Immature Granulocytes Absolute 0.05 #; Lymphocytes # 1.8 10*3/uL (1.4-4.0); Mean Corpuscular HGB Conc 28.3 GM/DL (32-36); Mean Corpuscular Volume 73.1 FL (87-102); Monocytes % 6.5 % (1.7-12.7); Neutrophils % 54.1 % (38.7-73.9); Platelet Count 183 T/CUMM (130-400); Red Blood Count 4.16 MC/CUMM (3.8-5.5); Red Cell Distribution Width 19.9 % (9.3-17.3); White Blood Count 4.9 T/CUMM (4-12)
[2021-10-07 06:27] LABS: Hematocrit 30.4 VOL% (35.7-47.0)
[2021-10-07] MEDS: INSULIN REGULAR 100 UNIT/ML SUBCUT SCH ×4 (07:33→20:36)
[2021-10-07] MEDS: SERTRALINE 100 MG TABLET PO SCH (10:07)
[2021-10-07] MEDS: POLYETHYLENE GLYCOL POWDER 17 GM PACK PO SCH ×2 (10:07→21:53)
[2021-10-07] MEDS: carvediloL 3.125 MG TABLET PO SCH ×2 (10:07→21:53)
[2021-10-07] MEDS: CHOLESTYRAMINE 4 GM PACK PO SCH ×2 (10:07→21:53)
[2021-10-07] MEDS: LOSARTAN 25 MG TABLET PO SCH (10:07)
[2021-10-07] MEDS: FUROSEMIDE 40 MG/4 ML VIAL IV SCH ×2 (10:07→15:14)
[2021-10-07] MEDS: LEVOFLOXACIN 750 MG TABLET PO SCH (10:08)
[2021-10-07] MEDS: MONTELUKAST 10 MG TABLET PO SCH (10:08)
[2021-10-07] MEDS: PANTOPRAZOLE 40 MG TABLET PO SCH (10:08)
[2021-10-07] MEDS: ASPIRIN EC 81 MG TABLET PO SCH (10:08)
[2021-10-07] MEDS: VENLAFAXINE XR 37.5 MG CAPSULE PO SCH (10:08)
[2021-10-07] MEDS: CYANOCOBALAMIN 500 MCG TABLET PO SCH (10:08)
[2021-10-07] MEDS: ISOSORBIDE MONONITRATE 30 MG TABLET PO SCH (10:08)
[2021-10-07] MEDS: POTASSIUM CHLORIDE 20 MEQ TABLET PO SCH ×2 (10:08→21:53)
[2021-10-07] MEDS: FERRIC GLUCONATE COMPLEX 125 MG in SODIUM CHLORIDE 0.9% 100 ML IV SCH (10:10)
[2021-10-07] MEDS: LIDOCAINE 5% PATCH TRANSDERM SCH (11:32)
[2021-10-07] MEDS: methylPREDNISolone SOD SUC 40 MG/1 ML VIAL IV SCH ×2 (15:13→23:02)
[2021-10-07] MEDS: DOXYCYCLINE HYCLATE INJ 100 MG in SODIUM CHLORIDE 0.9% 100 ML IV SCH (17:40)
[2021-10-07] MEDS ORDERED: LINEZOLID 600 MG TABLET PO SCH (21:00)
[2021-10-07] MEDS: ALUMINUM/MAGNES/SIMETH MAX STR 30 ML UDCUP PO SCH (21:53)
[2021-10-07] MEDS: ENOXAPARIN 60 MG/0.6 ML SYRINGE SUBCUT SCH (21:54)
[2021-10-07] MEDS: diphenhydrAMINE CAP 25 MG CAPSULE PO PRN (23:08)
[2021-10-08] MEDS: ALBUTEROL/IPRATROPIUM 3 ML NEB RESP TX SCH ×4 (00:38→19:10)
[2021-10-08] MEDS: ACETAMINOPHEN 325 MG TABLET PO PRN ×2 (03:27→09:34)
[2021-10-08] MEDS: DOXYCYCLINE HYCLATE INJ 100 MG in SODIUM CHLORIDE 0.9% 100 ML IV SCH (05:05)
[2021-10-08 07:21] LABS: Calcium 9.6 MG/DL (8.5-10.1)
[2021-10-08 07:24] LABS: Osmolality,Calculated 276.7 MOS/KG (273-304)
[2021-10-08 07:37] LABS: Basophils % 0.2 % (0.0-0.8); Hematocrit 31.4 VOL% (35.7-47.0); Hemoglobin 8.7 GM/DL (12.0-16.0); Immature Granulocytes % 0.4 %; Immature Granulocytes Absolute 0.02 #; Lymphocytes # 0.8 10*3/uL (1.4-4.0); Lymphocytes % 14.8 % (21.3-54.2); Mean Corpuscular HGB Conc 27.7 GM/DL (32-36); Mean Corpuscular Volume 72.9 FL (87-102); Monocytes % 0.7 % (1.7-12.7); Neutrophils % 83.9 % (38.7-73.9); Platelet Count 164 T/CUMM (130-400); Red Blood Count 4.31 MC/CUMM (3.8-5.5); Red Cell Distribution Width 19.9 % (9.3-17.3); White Blood Count 5.7 T/CUMM (4-12)
[2021-10-08 07:42] LABS: Hypochromia 1+; Lymphocytes 19 % (20-55); Microcytosis 1+; Platelet Estimate Adequate; Segmented Neutrophils 81 % (50-85); Total Cells Counted 100
[2021-10-08] MEDS: INSULIN REGULAR 100 UNIT/ML SUBCUT SCH ×4 (08:00→21:23)
[2021-10-08] MEDS: CHOLESTYRAMINE 4 GM PACK PO SCH ×2 (09:35→21:54)
[2021-10-08] MEDS: POLYETHYLENE GLYCOL POWDER 17 GM PACK PO SCH ×2 (09:35→22:03)
[2021-10-08] MEDS: LIDOCAINE 5% PATCH TRANSDERM SCH (09:37)
[2021-10-08] MEDS: FUROSEMIDE 40 MG/4 ML VIAL IV SCH ×2 (09:39→16:14)
[2021-10-08] MEDS: ASPIRIN EC 81 MG TABLET PO SCH (09:40)
[2021-10-08] MEDS: methylPREDNISolone SOD SUC 40 MG/1 ML VIAL IV SCH ×2 (09:40→21:55)
[2021-10-08] MEDS: VENLAFAXINE XR 37.5 MG CAPSULE PO SCH (09:40)
[2021-10-08] MEDS: carvediloL 3.125 MG TABLET PO SCH ×2 (09:41→21:54)
[2021-10-08] MEDS: CYANOCOBALAMIN 500 MCG TABLET PO SCH (09:41)
[2021-10-08] MEDS: PANTOPRAZOLE 40 MG TABLET PO SCH (09:41)
[2021-10-08] MEDS: MONTELUKAST 10 MG TABLET PO SCH (09:41)
[2021-10-08] MEDS: SERTRALINE 100 MG TABLET PO SCH (09:41)
[2021-10-08] MEDS: LOSARTAN 25 MG TABLET PO SCH (09:41)
[2021-10-08] MEDS: ISOSORBIDE MONONITRATE 30 MG TABLET PO SCH (09:41)
[2021-10-08] MEDS ORDERED: SODIUM POLYSTYRENE SULFATE 15 GM/60 ML BOTTLE PO STA (10:25)
[2021-10-08] MEDS: diphenhydrAMINE CAP 25 MG CAPSULE PO PRN ×2 (16:12→22:06)
[2021-10-08 17:02] LABS: Calcium 9.6 MG/DL (8.5-10.1); Osmolality,Calculated 280.4 MOS/KG (273-304); Potassium 5.1 MMOL/L (3.5-5.1)
[2021-10-08] MEDS: DOXYCYCLINE HYCLATE 100 MG CAPSULE PO SCH (21:54)
[2021-10-08] MEDS: ALUMINUM/MAGNES/SIMETH MAX STR 30 ML UDCUP PO SCH (21:54)
[2021-10-08] MEDS: ENOXAPARIN 60 MG/0.6 ML SYRINGE SUBCUT SCH (21:54)
[2021-10-09] MEDS: ALBUTEROL/IPRATROPIUM 3 ML NEB RESP TX SCH ×3 (01:45→12:49)
[2021-10-09] MEDS: ACETAMINOPHEN 325 MG TABLET PO PRN (05:22)
[2021-10-09 07:40] LABS: Calcium 9.6 MG/DL (8.5-10.1); Osmolality,Calculated 274.7 MOS/KG (273-304); Potassium 5.5 MMOL/L (3.5-5.1)
[2021-10-09 08:07] LABS: Hematocrit 31.3 VOL% (35.7-47.0); Immature Granulocytes % 0.5 %; Immature Granulocytes Absolute 0.04 #; Lymphocytes # 1.1 10*3/uL (1.4-4.0); Lymphocytes % 14.2 % (21.3-54.2); Mean Corpuscular HGB Conc 28.1 GM/DL (32-36); Mean Corpuscular Volume 72.3 FL (87-102); Monocytes % 3.1 % (1.7-12.7); Neutrophils % 82.2 % (38.7-73.9); Platelet Count 165 T/CUMM (130-400); Red Blood Count 4.33 MC/CUMM (3.8-5.5); Red Cell Distribution Width 19.9 % (9.3-17.3); White Blood Count 7.5 T/CUMM (4-12)
[2021-10-09 08:19] LABS: Hemoglobin 8.8 GM/DL (12.0-16.0)
[2021-10-09] MEDS: INSULIN REGULAR 100 UNIT/ML SUBCUT SCH ×2 (08:30→12:18)
[2021-10-09 08:54] LABS: Hypochromia 2+
[2021-10-09 08:55] LABS: Microcytosis 1+; Ovalocytes Few; Platelet Estimate Adequate; Tear Drop Cells Slight
[2021-10-09] MEDS: methylPREDNISolone SOD SUC 40 MG/1 ML VIAL IV SCH (09:26)
[2021-10-09] MEDS: VENLAFAXINE XR 37.5 MG CAPSULE PO SCH (09:28)
[2021-10-09] MEDS: FUROSEMIDE 40 MG/4 ML VIAL IV SCH (09:28)
[2021-10-09] MEDS: ISOSORBIDE MONONITRATE 30 MG TABLET PO SCH (09:28)
[2021-10-09] MEDS: SERTRALINE 100 MG TABLET PO SCH (09:28)
[2021-10-09] MEDS: DOXYCYCLINE HYCLATE 100 MG CAPSULE PO SCH (09:28)
[2021-10-09] MEDS: ASPIRIN EC 81 MG TABLET PO SCH (09:29)
[2021-10-09] MEDS: PANTOPRAZOLE 40 MG TABLET PO SCH (09:29)
[2021-10-09] MEDS: carvediloL 3.125 MG TABLET PO SCH (09:29)
[2021-10-09] MEDS: CHOLESTYRAMINE 4 GM PACK PO SCH (09:30)
[2021-10-09] MEDS: LEVOFLOXACIN 750 MG TABLET PO SCH (09:30)
[2021-10-09] MEDS: POLYETHYLENE GLYCOL POWDER 17 GM PACK PO SCH (09:30)
[2021-10-09] MEDS: CYANOCOBALAMIN 500 MCG TABLET PO SCH (09:35)
[2021-10-09] MEDS: MONTELUKAST 10 MG TABLET PO SCH (09:35)
[2021-10-09] MEDS: LIDOCAINE 5% PATCH TRANSDERM SCH (09:39)
[2021-10-09 13:04] VITALS: BP 145/62
[2021-10-09] MEDS ORDERED: SODIUM ZIRCONIUM CYCLOSILICATE 10 GM PACK PO SCH (21:00)
== END 2021-10-09 14:44 | disposition home or self-care (01) | DRG 194 ==
LOC: EDBD → EDUNIT# → N.ED 16:49 → N.5E 18:34
PROVIDERS: ADMIT Hospitalist; ATTEND Hospitalist